=== PATIENT | female | born 1980 | race Caucasian/White ===

== ENCOUNTER → 2016-12-13 | Outpatient (CLI) | payer BC, OTHER ==
[2016-12-14 01:00] LABS: HSV I IgG Interp POSITIVE (NEGATIVE); HSV II IgG Interp NEGATIVE (NEGATIVE)
== END | disposition home or self-care (01) ==
LOC: MMGSC 11:53
PROVIDERS: ATTEND Family Medicine
DX: Z11.3 Encounter for screening for infections with a predominantly sexual mode of transmission (principal)
CPT/HCPCS: 36415; 86694; 86695; 86696

== ENCOUNTER → 2017-08-02 | Outpatient (CLI) | payer BC, OTHER ==
[2017-08-03 00:52] LABS: Estradiol 66.6 pg/mL
== END | disposition home or self-care (01) ==
LOC: LABWHC1 15:59
PROVIDERS: ATTEND Obstetrics & Gynecology Reproductive Endocrinology
DX: N97.8 Female infertility of other origin (principal)
CPT/HCPCS: 36415; 82670; 83001

== ENCOUNTER → 2018-07-16 | Outpatient (CLI) | payer BC ==
[2018-07-16 16:18] VITALS: BP 143/83; PULSE 58; RESP 16; TEMP 98.2; BMI 30.5
--- NOTE | 2018-07-16 16:22 | P.PN ---
Subjective Progress Note Date: 07/16/18 HPI: Has history of gastric bypass by Dr. Pinto in 32 years. She has history of stricture. She has lost 90 pounds. Highest weight 420 pound. Lowest weight 156 pounds. Now she is 192 pounds. She reports extreme weight loss from social stressors. No blood in stools. ABDOMEN: Left upper quadrant pain and epigastric abdominal. PLAN: 1. Upper endoscopy 2. Will need CT scan results 3. Get bariatric labs.
[2018-07-16 17:35] LABS: Anisocytosis Slight; HCT 29.5 % (34.0-46.0); HGB 8.7 gm/dL (11.4-16.0); Hypochromasia Marked; MCH 21.5 pg (25.0-35.0); MCHC 29.6 g/dL (31.0-37.0); MCV 72.9 fL (80.0-100.0); Mean Platelet Volume 7.4; Microcytosis Moderate; Platelet Count 226 k/uL (150-450); RBC 4.05 m/uL (3.80-5.40); RDW 16.3 % (11.5-15.5); WBC 5.6 k/uL (3.8-10.6)
[2018-07-16 17:45] LABS: INR 1.1 (<1.2); Partial Thromboplastin Time 23.7 sec (22.0-30.0); Prothrombin Time 10.8 sec (9.0-12.0)
[2018-07-16 18:19] LABS: ALT 25 U/L (9-52); AST 16 U/L (14-36); Alkaline Phosphatase 61 U/L (38-126); Anion Gap 9 mmol/L; Blood Urea Nitrogen 6 mg/dL (7-17); Carbon Dioxide 22 mmol/L (22-30); Chloride 108 mmol/L (98-107); Cholesterol 149 mg/dL (<200); Glucose 88 mg/dL (74-99); HDL Cholesterol 62 mg/dL (40-60); LDL Cholesterol,Calculated 75 mg/dL (0-99); Magnesium 1.8 mg/dL (1.6-2.3); Phosphorus 4.1 mg/dL (2.5-4.5); Potassium 4.1 mmol/L (3.5-5.1); Sodium 139 mmol/L (137-145); Total Bilirubin 0.2 mg/dL (0.2-1.3); Total Protein 6.8 g/dL (6.3-8.2); Triglycerides 58 mg/dL (<150)
[2018-07-17 01:05] LABS: Folate, Serum 19.4 ng/mL; Iron Saturation 4.01 (12.00-45.00)
[2018-07-17 01:06] LABS: Hemoglobin A1C 5.6 % (4.0-6.0)
[2018-07-17 01:15] LABS: Parathyroid Hormone Intact 74.4 pg/mL (14.0-72.0)
[2018-07-18 12:54] LABS: Zinc, Serum 63 ug/dL (60-130)
[2018-07-19 17:14] LABS: Selenium 104 mcg/L (63-160)
[2018-07-21 07:17] LABS: Vitamin B1 41 ug/L (38-122)
[2018-07-21 07:22] LABS: Vitamin A 26 ug/dL (38-106)
== END | disposition home or self-care (01) ==
LOC: BARWHC3 14:56
PROVIDERS: ATTEND Surgery Plastic and Reconstructive Surgery
DX: R10.13 Epigastric pain (principal); R10.11 Right upper quadrant pain; E66.01 Morbid (severe) obesity due to excess calories; E21.1 Secondary hyperparathyroidism, not elsewhere classified; E89.1 Postprocedural hypoinsulinemia; D50.9 Iron deficiency anemia, unspecified; E44.0 Moderate protein-calorie malnutrition; E55.9 Vitamin D deficiency, unspecified; K74.1 Hepatic sclerosis; N19 Unspecified kidney failure; K50.90 Crohn's disease, unspecified, without complications; Z87.19 Personal history of other diseases of the digestive system; Z98.84 Bariatric surgery status; Z68.30 Body mass index [BMI] 30.0-30.9, adult
CPT/HCPCS: 36415; 80053; 80061; 82306; 82525; 82607; 82728; 82746; 83036; 83540; 83550; 83735; 83970; 84100; 84134; 84255; 84425; 84443; 84590; 84630; 85027; 85610; 85730; 99201

== ENCOUNTER 2018-07-18 11:39 | Day surgery (SDC) | payer BC ==
[2018-07-17 13:33] VITALS: BMI 29.0
--- NOTE | 2018-07-18 00:45 | P.GSHP ---
History of Present Illness H&P Date: 07/18/18 CHIEF COMPLAINT: GERD HISTORY OF PRESENT ILLNESS: The patient is a 38-year-old female who presents reports gastroesophageal reflux disease. Upper endoscopy was offered for further evaluation and management. PAST MEDICAL HISTORY: Please see list. PAST SURGICAL HISTORY: Please see list. MEDICATIONS: Please see list. ALLERGIES: Please see list. SOCIAL HISTORY: No illicit drug use FAMILY HISTORY: No reports of Crohn disease or ulcerative colitis. REVIEW OF ORGAN SYSTEMS: CONSTITUTIONAL: No reports of fevers or chills. GI: Denies any blood in stools or constipation. PHYSICAL EXAM: VITAL SIGNS: Stable GENERAL: Well-developed and pleasant in no acute distress. HEENT: No scleral icterus. Extraocular movements grossly intact. Moist buccal mucosa. NECK: Supple without lymphadenopathy. CHEST: Unlabored respirations. Equal bilateral excursions. CARDIOVASCULAR: Regular rate and rhythm. Distal 2+ pulses. ABDOMEN: Soft, nondistended. MUSCULOSKELETAL: No clubbing, cyanosis, or edema. ASSESSMENT: 1. Gastroesophageal reflux disease PLAN: 1. Recommend proceeding with an upper endoscopy Past Medical History Additional Past Medical History / Comment(s): ABD PAIN, VOMITING, hx of kidney stones, History of Any Multi-Drug Resistant Organisms: None Reported Past Surgical History: Bariatric Surgery, Section, Cholecystectomy, Tubal Ligation Additional Past Surgical History / Comment(s): lap band 2010 lap band removed and gastric bypass 2014 c section x 2 reversal of tubal ligation 2017 Past Anesthesia/Blood Transfusion Reactions: No Reported Reaction Smoking Status: Never smoker Medications and Allergies Home Medications Medication Instructions Recorded Confirmed Type Calcium Citrate 500 mg PO QID 07/16/18 07/17/18 History Cholecalciferol [Vitamin D3] 1,000 unit PO DAILY 07/16/18 07/17/18 History Cyanocobalamin (Vitamin B-12) 1,000 mcg PO DAILY 07/16/18 07/17/18 History [Vitamin B-12] Iron 120 mg PO DAILY 07/16/18 07/17/18 History Potassium 99 mg PO WEEKLY 07/16/18 07/17/18 History Vit 84/Iron/FA 1/Dha 1 tab PO DAILY 07/16/18 07/17/18 History [Prenate Essential Softgel] Vitamin B Complex 1 tab PO DAILY 07/16/18 07/17/18 History Allergies Allergy/AdvReac Type Severity Reaction Status Date / Time adhesive tape Allergy Rash/Hives Verified 07/17/18 13:25
[2018-07-18 12:07] VITALS: RESP 16; TEMP 99.2
[2018-07-18] MEDS ORDERED: LACTATED RINGERS 1,000 ML IV ONE (12:11)
[2018-07-18] MEDS ORDERED: LIDOCAINE 1% 20 ML VIAL (10MG/ML) FOR IV START INTRADERMA ONE (12:12)
[2018-07-18] MEDS ORDERED: LIDOCAINE 1% INJ 10MG/ML (20 ML MDV) ONE (12:46)
[2018-07-18] MEDS ORDERED: PROPOFOL 10 MG/ML 20 ML VIAL IV ONE (12:46)
--- NOTE | 2018-07-18 12:55 | P.PCN ---
Date of Procedure: 07/18/18 Description of Procedure: PREOPERATIVE DIAGNOSIS: Dysphagia. s/p Damaris-en-y gastric bypass. Epigastric abdominal pain Nausea with vomiting. History of gastrojejunal strictures POSTOPERATIVE DIAGNOSIS: Dysphagia. s/p Damaris-en-y gastric bypass. 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 INDICATIONS: The patient is a 38-year-old female who presents with a history of dysphagia, gastric bypass including new-onset nausea and vomiting. Benefits and risks of the procedure were described. Informed consent was obtained. DESCRIPTION: The patient was brought into the endoscopy suite and laid in the left lateral decubitus position. After a timeout was confirmed, the procedure was initiated. An Olympus gastroscope was passed along the posterior oropharynx down to the distal esophagus where the squamocolumnar junction was unremarkable. The gastric pouch was entered. A gastrojejunal stricture of 12 mm was found as the adult gastroscope was 9.5 mm in size. Large chronic gastrojejunal marginal ulcer was encountered. As a result of the ulcer, dilation was avoided. No full-thickness injury was encountered. The GI tract was desufflated. The patient tolerated the procedure well. FINDINGS: Squamocolumnar junction unremarkable at 37 cm. Stricture of approximately 12 mm encountered. Large chronic gastrojejunal ulceration encountered. RECOMMENDATIONS: Start combined therapy of Carafate and omeprazole of at least 4 weeks. Plan - Discharge Summary New Discharge Prescriptions: No Action Vit 84/Iron/FA 1/Dha [Prenate Essential Softgel] 1 tab PO DAILY Vitamin B Complex 1 tab PO DAILY Calcium Citrate 500 mg PO QID Potassium 99 mg PO WEEKLY Iron 120 mg PO DAILY Cholecalciferol [Vitamin D3] 1,000 unit PO DAILY Cyanocobalamin (Vitamin B-12) [Vitamin B-12] 1,000 mcg PO DAILY Discharge Medication List Calcium Citrate 500 mg PO QID 07/16/18 [History] Cholecalciferol [Vitamin D3] 1,000 unit PO DAILY 07/16/18 [History] Cyanocobalamin (Vitamin B-12) [Vitamin B-12] 1,000 mcg PO DAILY 07/16/18 [ History] Iron 120 mg PO DAILY 07/16/18 [History] Potassium 99 mg PO WEEKLY 07/16/18 [History] Vit 84/Iron/FA 1/Dha [Prenate Essential Softgel] 1 tab PO DAILY [History] Vitamin B Complex 1 tab PO DAILY 07/16/18 [History]
[2018-07-18 13:23] VITALS: BP 143/84; PULSE 78
== END 2018-07-18 13:35 | disposition home or self-care (01) ==
LOC: ORWHC2ENDO 11:39
PROVIDERS: ATTEND Surgery Plastic and Reconstructive Surgery
DX: K28.7 Chronic gastrojejunal ulcer without hemorrhage or perforation (principal); K56.699 Other intestinal obstruction unspecified as to partial versus complete obstruction; K21.9 Gastro-esophageal reflux disease without esophagitis; Z98.84 Bariatric surgery status; Z91.048 Other nonmedicinal substance allergy status
CPT/HCPCS: 81025; 43235; J2001; J2704

== ENCOUNTER → 2018-08-06 | Outpatient (CLI) | payer BC ==
[2018-08-06 15:08] VITALS: BP 127/86; PULSE 67; TEMP 98.2; BMI 30.4
--- NOTE | 2018-08-06 15:43 | P.PN ---
Subjective Progress Note Date: 08/06/18 HPI: She is doing well. She has better energy after iron infusions. Her abdominal pain is improved. ABDOMEN: Unremarkable PLAN: 1. Repeat EGD the week of August after 2. Alive ultra-potency advised. 3. Continue Carafate and Omeprazole for 4 to 6 weeks. Objective - Vital Signs Vital signs: Vital Signs Temp 98.2 F 08/06/18 15:03 Pulse 67 08/06/18 15:03 Resp BP 127/86 08/06/18 15:03 Pulse Ox Intake & Output 08/05/18 08/06/18 08/06/18 18:59 06:59 18:59 Weight 86.772 kg
== END | disposition home or self-care (01) ==
LOC: BARWHC3 14:00
PROVIDERS: ATTEND Surgery Plastic and Reconstructive Surgery
DX: R10.9 Unspecified abdominal pain (principal); Z79.899 Other long term (current) drug therapy
CPT/HCPCS: 99211

== ENCOUNTER → 2018-08-27 | Outpatient (CLI) | payer BC ==
[2018-08-27 17:16] LABS: Cardiolipin Ab IgG Interp NEGATIVE (NEGATIVE); Cardiolipin Ab IgM Interp NEGATIVE (NEGATIVE); Cardiolipin IgA Antibody <0.5 U/mL; Cardiolipin IgM Antibody <0.2 U/mL
[2018-08-27 18:04] LABS: Insulin Level 10.5 mIU/mL (3.0-25.0)
[2018-08-27 18:22] LABS: Thyroid Peroxidase Antibodies 3755.9 U/mL (0.0-60.0)
[2018-08-27 19:21] LABS: Hemoglobin A1C 4.6 % (4.0-6.0)
[2018-08-29 12:09] LABS: Anti-Thrombin III Activity 102 % (79-109)
[2018-08-29 12:46] LABS: Protein C (Activity) 75 % (71-138)
== END ==
LOC: LABWHC1 08:24
PROVIDERS: ATTEND Obstetrics & Gynecology
DX: N96 Recurrent pregnancy loss (principal)
CPT/HCPCS: 36415; 81240; 81241; 81291; 82947; 83036; 83090; 83525; 84146; 84443; 85300; 85303; 85306; 86038; 86147; 86376; 86800

== ENCOUNTER → 2018-09-17 | Outpatient (CLI) | payer BC | END | disposition home or self-care (01) | LOC: LABWHC1 12:16 | DX: N92.6 Irregular menstruation, unspecified (principal) | CPT/HCPCS: 36415; 84144 ==

== ENCOUNTER → 2018-10-28 | Outpatient (CLI) | payer BC | LOC: LABWHC1 16:11 | PROVIDERS: ATTEND Obstetrics & Gynecology | DX: N96 Recurrent pregnancy loss (principal); N91.2 Amenorrhea, unspecified | CPT/HCPCS: 36415; 84443; 84702 ==

== ENCOUNTER → 2018-11-03 | Outpatient (CLI) | payer BC | LOC: LABWHC1 17:19 | PROVIDERS: ATTEND Obstetrics & Gynecology | DX: N91.2 Amenorrhea, unspecified (principal) | CPT/HCPCS: 36415; 84702 ==

== ENCOUNTER → 2018-11-11 | Outpatient (CLI) | payer BC | LOC: LABWHC1 11:13 | PROVIDERS: ATTEND Obstetrics & Gynecology | DX: N96 Recurrent pregnancy loss (principal) | CPT/HCPCS: 36415; 84702 ==

== ENCOUNTER → 2018-11-13 | Outpatient (CLI) | payer BC | LOC: LABWHC1 11:56 | PROVIDERS: ATTEND Obstetrics & Gynecology | DX: N91.2 Amenorrhea, unspecified (principal) | CPT/HCPCS: 36415; 84702 ==

== ENCOUNTER → 2019-01-08 | Outpatient (CLI) | payer BC, OTHER | END | disposition home or self-care (01) | LOC: LABWHC1 14:26 | PROVIDERS: ATTEND Obstetrics & Gynecology | DX: N91.2 Amenorrhea, unspecified (principal) | CPT/HCPCS: 36415; 84702 ==

== ENCOUNTER → 2019-01-22 | Outpatient (CLI) | payer BC, OTHER ==
--- NOTE | 2019-01-22 11:44 | CT ---
EXAMINATION TYPE: CT abdomen pelvis wo/w con DATE OF EXAM: 01/22/2019 COMPARISON: Unavailable HISTORY: Renal cyst on US CT DLP: 1000.2 mGycm Automated exposure control for dose reduction was used. TECHNIQUE: Helical acquisition of images was performed from the lung bases through the pelvis. CONTRAST: Performed with Oral Contrast and without and with IV Contrast, patient injected with 100 mL of Isovue 300. FINDINGS: Postop changes are noted to the stomach. LUNG BASES: No significant abnormality is appreciated. LIVER/GB: Patient is post cholecystectomy, liver is within normal limits. PANCREAS: No significant abnormality is seen. SPLEEN: No significant abnormality is seen. ADRENALS: No significant abnormality is seen. KIDNEYS: No significant abnormality is seen. FREE AIR: No free air is visualized. RETROPERITONEAL ADENOPATHY: None visualize OSSEOUS STRUCTURES: No significant abnormality is seen. BOWEL: No significant abnormality is seen. IMPRESSION: NO RENAL CYST EVIDENT. IF PATIENT'S PRIOR EXAM BECOMES AVAILABLE FOR CORRELATION AN ADDENDUM REPORT C AN BE ISSUED
== END | disposition home or self-care (01) ==
LOC: RADCTMAIN 06:57
PROVIDERS: ATTEND Family Medicine
DX: N28.1 Cyst of kidney, acquired (principal)
CPT/HCPCS: 74178; Q9967

== ENCOUNTER → 2019-02-13 | Outpatient (CLI) | payer BC, OTHER | END | disposition home or self-care (01) | LOC: LABWHC1 10:16 | PROVIDERS: ATTEND Obstetrics & Gynecology | DX: N96 Recurrent pregnancy loss (principal) | CPT/HCPCS: 36415; 82652; 83090; 84443 ==

== ENCOUNTER 2019-03-17 12:42 | Emergency (ER) | payer BC, OTHER ==
[2019-03-17] MEDS ORDERED: SODIUM CHLORIDE 0.9% 1,000 ML IV STA (13:31)
[2019-03-17] MEDS ORDERED: ONDANSETRON 4 MG/2 ML VIAL IVP STA (13:31)
[2019-03-17] MEDS ORDERED: SODIUM CHLORIDE 0.9% 2,000 ML IV STA (13:31)
[2019-03-17 14:00] LABS: Basophils % (A) 0 %; Eosinophils # (A) 0.1 k/uL (0-0.7); Eosinophils % (A) 3 %; HCT 34.7 % (34.0-46.0); HGB 11.7 gm/dL (11.4-16.0); Lymphocytes % (A) 22 %; MCH 29.9 pg (25.0-35.0); MCHC 33.8 g/dL (31.0-37.0); MCV 88.5 fL (80.0-100.0); Mean Platelet Volume 7.3; Monocytes # (A) 0.3 k/uL (0-1.0); Monocytes % (A) 7 %; Neutrophils # (A) 2.9 k/uL (1.3-7.7); Neutrophils % (A) 66 %; Platelet Count 260 k/uL (150-450); RBC 3.92 m/uL (3.80-5.40); RDW 12.8 % (11.5-15.5); WBC 4.4 k/uL (3.8-10.6)
[2019-03-17 14:06] LABS: ALT 20 U/L (9-52); AST 12 U/L (14-36); Albumin 3.7 g/dL (3.5-5.0); Alkaline Phosphatase 46 U/L (38-126); Amylase 39 U/L (30-110); Anion Gap 6 mmol/L; Blood Urea Nitrogen 9 mg/dL (7-17); Calcium 8.9 mg/dL (8.4-10.2); Carbon Dioxide 22 mmol/L (22-30); Chloride 108 mmol/L (98-107); Glucose 70 mg/dL (74-99); Lipase 74 U/L (23-300); Sodium 136 mmol/L (137-145); Total Bilirubin 0.3 mg/dL (0.2-1.3); Total Protein 6.3 g/dL (6.3-8.2)
--- NOTE | 2019-03-17 14:15 | ED ---
Nausea/Vomiting/Diarrhea HPI - General Chief complaint: Nausea/Vomiting/Diarrhea Stated complaint: hyperemesis, 9 weeks Time Seen by Provider: 03/17/19 13:18 Source: patient, RN notes reviewed, old records reviewed Mode of arrival: ambulatory Limitations: no limitations - History of Present Illness Initial comments: Patient is a 38-year-old female presents emergency department today complaints of nausea and vomiting. She relates hyperemesis gravidarum. Patient is a G 12 P2 Patient. Patient states that she was slamming . 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 Patient reports she's been having 20 days of persistent vomiting since this recent . she rudy bleeding or discharge. - Related Data Home Medications Medication Instructions Recorded Confirmed Mthfr 1 tab PO HS 03/17/19 03/17/19 Multivitamins, Thera [Multivitamin 1 tab PO HS 03/17/19 03/17/19 (formulary)] Omeprazole [PriLOSEC] 20 mg PO AC-BRKFST PRN 03/17/19 03/17/19 Ondansetron HCl [Zofran] 8 mg PO Q8H PRN 03/17/19 03/17/19 Pnv,Calcium 72/Iron/Folic Acid 1 tab PO HS 03/17/19 03/17/19 [ Plus Tablet] Previous Rx's Medication Instructions Recorded Cefdinir 300 mg PO Q12HR #6 cap 03/17/19 Allergies Allergy/AdvReac Type Severity Reaction Status Date / Time adhesive tape Allergy Rash/Hives Verified 03/17/19 13:23 Review of Systems ROS Statement: Those systems with pertinent positive or pertinent negative responses have been documented in the HPI. ROS Other: All systems not noted in ROS Statement are negative. Past Medical History Additional Past Medical History / Comment(s): ABD PAIN, VOMITING, hx of kidney stones, History of Any Multi-Drug Resistant Organisms: None Reported Past Surgical History: Bariatric Surgery, Section, Cholecystectomy, Tubal Ligation Additional Past Surgical History / Comment(s): lap band 2010 lap band removed and gastric bypass 2014, c section x 2 reversal of tubal ligation 2017 Past Anesthesia/Blood Transfusion Reactions: No Reported Reaction Past Psychological History: No Psychological Hx Reported Smoking Status: Never smoker Past Alcohol Use History: None Reported Past Drug Use History: None Reported General Exam - General Exam Comments Initial Comments: pleasant 38 year old female, no distress. Limitations: no limitations General appearance: alert, in no apparent distress Head exam: Present: atraumatic, normocephalic, normal inspection Eye exam: Present: normal appearance ENT exam: Present: normal exam, mucous membranes moist Neck exam: Present: normal inspection. Absent: tenderness, meningismus, lymphadenopathy Respiratory exam: Present: normal lung sounds bilaterally. Absent: respiratory distress, wheezes, rales, rhonchi, stridor Cardiovascular Exam: Present: regular rate, normal rhythm, normal heart sounds. Absent: systolic murmur, diastolic murmur, rubs, gallop, clicks GI/Abdominal exam: Present: soft, normal bowel sounds. Absent: distended, tenderness, guarding, rebound, rigid Extremities exam: Present: normal inspection, full ROM, normal capillary refill. Absent: tenderness, pedal edema, joint swelling, calf tenderness Back exam: Present: normal inspection Course Vital Signs 03/17/19 03/17/19 13:05 16:26 Temperature 98 F 98.5 F Pulse Rate 82 67 Respiratory 16 18 Rate Blood Pressure 124/82 134/79 O2 Sat by Pulse 99 99 Oximetry Medical Decision Making - Medical Decision Making 38 year old female, G12,P2, and 9 weeks presents with hyperemesis gravidum. She given IV fluids and zofran. She already takes zofran at home. She has normal labs, UA shows slight UTI. She requests cefdinir rather than keflex. Discussed she follow up with OB. She has no bleeding ab fetus shows normal herat tones and is viable IUP. - Lab Data Result diagrams: 03/17/19 13:42 03/17/19 13:42 Lab Results 03/17/19 03/17/19 03/17/19 Range/Units 13:42 13:42 13:57 WBC 4.4 (3.8-10.6) k/uL RBC 3.92 (3.80-5.40) m/uL Hgb 11.7 (11.4-16.0) gm/dL Hct 34.7 (34.0-46.0) % MCV 88.5 (80.0-100.0) fL MCH 29.9 (25.0-35.0) pg MCHC 33.8 (31.0-37.0) g/dL RDW 12.8 (11.5-15.5) % Plt Count 260 (150-450) k/uL Neutrophils % 66 % Lymphocytes % 22 % Monocytes % 7 % Eosinophils % 3 % Basophils % 0 % Neutrophils # 2.9 (1.3-7.7) k/uL Lymphocytes # 1.0 (1.0-4.8) k/uL Monocytes # 0.3 (0-1.0) k/uL Eosinophils # 0.1 (0-0.7) k/uL Basophils # 0.0 (0-0.2) k/uL Sodium 136 L (137-145) mmol/L Potassium 4.0 (3.5-5.1) mmol/L Chloride 108 H (98-107) mmol/L Carbon Dioxide 22 (22-30) mmol/L Anion Gap 6 mmol/L BUN 9 (7-17) mg/dL Creatinine 0.59 (0.52-1.04) mg/dL Est GFR (CKD-EPI)AfAm >90 (>60 ml/min/1.73 sqM) Est GFR (CKD-EPI)NonAf >90 (>60 ml/min/1.73 sqM) Glucose 70 L (74-99) mg/dL Calcium 8.9 (8.4-10.2) mg/dL Total Bilirubin 0.3 (0.2-1.3) mg/dL AST 12 L (14-36) U/L ALT 20 (9-52) U/L Alkaline Phosphatase 46 (38-126) U/L Total Protein 6.3 (6.3-8.2) g/dL Albumin 3.7 (3.5-5.0) g/dL Amylase 39 (30-110) U/L Lipase 74 (23-300) U/L Urine Color Yellow Urine Appearance Cloudy H (Clear) Urine pH 6.0 (5.0-8.0) Ur Specific [place] 1.028 (1.001-1.035) Urine Protein Trace H (Negative) Urine Glucose (UA) Negative (Negative) Urine Ketones Negative (Negative) Urine Blood Trace H (Negative) Urine Nitrite Positive H (Negative) Urine Bilirubin Negative (Negative) Urine Urobilinogen <2.0 (<2.0) mg/dL Ur Leukocyte Esterase Negative (Negative) Urine WBC 3 (0-5) /hpf Urine Bacteria Many H (None) /hpf Urine Opiates Screen (NotDetected) Ur Oxycodone Screen (NotDetected) Urine Methadone Screen (NotDetected) Ur Propoxyphene Screen (NotDetected) Ur Barbiturates Screen (NotDetected) U Tricyclic Antidepress (NotDetected) Ur Phencyclidine Scrn (NotDetected) Ur Amphetamines Screen (NotDetected) U Methamphetamines Scrn (NotDetected) U Benzodiazepines Scrn (NotDetected) Urine Cocaine Screen (NotDetected) U Marijuana (THC) Screen (NotDetected) 03/17/19 Range/Units 16:20 WBC (3.8-10.6) k/uL RBC (3.80-5.40) m/uL Hgb (11.4-16.0) gm/dL Hct (34.0-46.0) % MCV (80.0-100.0) fL MCH (25.0-35.0) pg MCHC (31.0-37.0) g/dL RDW (11.5-15.5) % Plt Count (150-450) k/uL Neutrophils % % Lymphocytes % % Monocytes % % Eosinophils % % Basophils % % Neutrophils # (1.3-7.7) k/uL Lymphocytes # (1.0-4.8) k/uL Monocytes # (0-1.0) k/uL Eosinophils # (0-0.7) k/uL Basophils # (0-0.2) k/uL Sodium (137-145) mmol/L Potassium (3.5-5.1) mmol/L Chloride (98-107) mmol/L Carbon Dioxide (22-30) mmol/L Anion Gap mmol/L BUN (7-17) mg/dL Creatinine (0.52-1.04) mg/dL Est GFR (CKD-EPI)AfAm (>60 ml/min/1.73 sqM) Est GFR (CKD-EPI)NonAf (>60 ml/min/1.73 sqM) Glucose (74-99) mg/dL Calcium (8.4-10.2) mg/dL Total Bilirubin (0.2-1.3) mg/dL AST (14-36) U/L ALT (9-52) U/L Alkaline Phosphatase (38-126) U/L Total Protein (6.3-8.2) g/dL Albumin (3.5-5.0) g/dL Amylase (30-110) U/L Lipase (23-300) U/L Urine Color Urine Appearance (Clear) Urine pH (5.0-8.0) Ur Specific [place] (1.001-1.035) Urine Protein (Negative) Urine Glucose (UA) (Negative) Urine Ketones (Negative) Urine Blood (Negative) Urine Nitrite (Negative) Urine Bilirubin (Negative) Urine Urobilinogen (<2.0) mg/dL Ur Leukocyte Esterase (Negative) Urine WBC (0-5) /hpf Urine Bacteria (None) /hpf Urine Opiates Screen Not Detected (NotDetected) Ur Oxycodone Screen Not Detected (NotDetected) Urine Methadone Screen Not Detected (NotDetected) Ur Propoxyphene Screen Not Detected (NotDetected) Ur Barbiturates Screen Not Detected (NotDetected) U Tricyclic Antidepress Not Detected (NotDetected) Ur Phencyclidine Scrn Not Detected (NotDetected) Ur Amphetamines Screen Not Detected (NotDetected) U Methamphetamines Scrn Not Detected (NotDetected) U Benzodiazepines Scrn Not Detected (NotDetected) Urine Cocaine Screen Not Detected (NotDetected) U Marijuana (THC) Screen Not Detected (NotDetected) - Radiology Data Radiology results: report reviewed US shows viable IUP meaduring 8 weeks. Disposition Clinical Impression: Nausea/vomiting in , UTI in Disposition: HOME SELF-CARE Condition: Good Instructions (If sedation given, give patient instructions): Acute Nausea and Vomiting (ED) Additional Instructions: Follow-up with your NUTRITION TECH and primary care physician. Return to the emergency department if any alarming signs or symptoms occur. Prescriptions: Cefdinir 300 mg PO Q12HR #6 cap Is patient prescribed a controlled substance at d/c from ED?: No Referrals: Salo Ferro DO [Primary Care Provider] - 1-2 days Time of Disposition: 16:16
--- NOTE | 2019-03-17 14:56 | US ---
EXAMINATION TYPE: Transabdominal DATE OF EXAM: 03/17/2019 2:37 PM COMPARISON: NONE CLINICAL HISTORY: Pain. Hyperemesis, 12, para 2, ectopic 2, miscarriage 7 EXAM PERFORMED: Transabdominal (TA) EXAM MEASUREMENTS: GESTATIONAL AGE / DATING Physician Established: (9 weeks/0 days) EDC: 10/20/2019 Dates by LMP: Patient unsure Dates by First Scan: This is 1st scan Dates by Current Scan for: (8 weeks/2 days) EDC: 10/25/2019 MATERNAL ANATOMY Uterus: 10.3 x 5.0 x 8.5cm, anteverted Right Ovary: 3.4 x 2.6 x 4.2cm Left Ovary: 3.4 x 2.4 x 2.5cm Post CDS / Adnexa: wnl Presence of free fluid: no Presence of corpus luteal cyst: right ovary: 1.8 x 1.8 x 1.9cm Presence of subchorionic bleed: no GESTATION / SURVEY CRL: 1.8cm (8 weeks/2 days) Yolk Sac (normal less than 6mm): not seen Heart Rate: 182 bpm Rhythm: Normal IUP: Viable IUP Date of LMP: Patient unsure Beta HcG (if available): Not available at time of exam Viable single IUP measuring 8 weeks 2 days with a heart rate of 182bpm and an estimated delivery date of 10/25/2019. IMPRESSION: Single viable intrauterine corresponding to ultrasound age of 8 weeks 2 days with estimated date of delivery 10/25/2019
[2019-03-17 15:30] LABS: Appearance,Urine Cloudy (Clear); Bacteria,Urine Many /hpf; Bilirubin,Urine Negative (Negative); Blood,Urine Trace (Negative); Color,Urine Yellow; Glucose,Urine (UA) Negative (Negative); Ketones,Urine Negative (Negative); Leukocyte Esterase,Urine Negative (Negative); Nitrite,Urine Positive (Negative); Protein,Urine Trace (Negative); Specific Gravity,Urine 1.028 (1.001-1.035); Urobilinogen,Urine <2.0 mg/dL (<2.0); WBC,Urine 3 /hpf (0-5)
[2019-03-17 16:28] VITALS: BP 134/79; PULSE 67; RESP 18; TEMP 98.5
[2019-03-17 16:36] LABS: Amphetamine Screen,Urine Not Detected (NotDetected); Barbiturate Screen,Urine Not Detected (NotDetected); Benzodiazepines Screen,Urine Not Detected (NotDetected); Cocaine Screen,Urine Not Detected (NotDetected); Methadone Screen, Urine Not Detected (NotDetected); Opiate Screen,Urine Not Detected (NotDetected); Oxycodone Screen, Urine Not Detected (NotDetected); Phencyclidine Screen,Urine Not Detected (NotDetected); Tricyclic Antidepressant,Urine Not Detected (NotDetected); Urn Cannabinoid Scrn Not Detected (NotDetected)
== END 2019-03-17 16:26 | disposition home or self-care (01) ==
LOC: EC 12:42
DX: O21.9 Vomiting of pregnancy, unspecified (principal); O23.41 Unspecified infection of urinary tract in pregnancy, first trimester; Z3A.08 8 weeks gestation of pregnancy; Z91.048 Other nonmedicinal substance allergy status; Z90.49 Acquired absence of other specified parts of digestive tract; Z98.84 Bariatric surgery status
CPT/HCPCS: 99284; 96374; 96361 ×3; 36415; 80053; 82150; 83690; 85025; 81001; 80306; 76801; J2405

== ENCOUNTER 2019-03-24 19:08 | Emergency (ER) | payer BC, OTHER ==
[2019-03-24] MEDS ORDERED: METOCLOPRAMIDE 5 MG/ML 2 ML VIAL IVP STA (20:03)
[2019-03-24] MEDS ORDERED: diphenhydrAMINE 50 MG/ML 1 ML VIAL IVP STA (20:03)
[2019-03-24] MEDS ORDERED: SODIUM CHLORIDE 0.9% 1,000 ML IV STA (20:03)
[2019-03-24] MEDS ORDERED: DEXTROSE 5% IN WATER 1,000 ML IV STA (20:04)
--- NOTE | 2019-03-24 20:26 | ED ---
General Adult HPI - General Chief complaint: Nausea/Vomiting/Diarrhea Stated complaint: vomiting/dizziness-revisit Time Seen by Provider: 03/24/19 19:47 Source: patient, family Mode of arrival: ambulatory Limitations: no limitations - History of Present Illness Initial comments: 38-year-old female patient presents to the emergency department today for ev aluation of vomiting. Patient is currently 10 weeks and does have hyperemesis gravidarum. The patient is A9. Patient states she does have Zofran and Reglan at home which is not helping however she is unable to keep the pills down. Patient states that she has had some blood streaking in her vomit. Patient states she is unable to keep anything down for the last 2-3 days. Patient is denies having any significant abdominal pain. She denies any abnormal vaginal bleeding or discharge. Denies any hematuria, dysuria, urinary frequency, urinary urgency. Denies fever, chills, or diarrhea. Patient denies any recent rash, shortness breath, chest pain, back pain, numbness, tingling, dizziness, weakness, headache, visual changes, or any other complaints. - Related Data Home Medications Medication Instructions Recorded Confirmed Mthfr 1 tab PO HS 03/17/19 03/24/19 Ondansetron HCl [Zofran] 8 mg PO Q8H PRN 03/17/19 03/24/19 Pnv,Calcium 72/Iron/Folic Acid 1 tab PO HS 03/17/19 03/24/19 [ Plus Tablet] Levothyroxine Sodium [Synthroid] 50 mcg PO DAILY 03/24/19 03/24/19 Metoclopramide [Reglan] 10 mg PO Q8H PRN 03/24/19 03/24/19 Allergies Allergy/AdvReac Type Severity Reaction Status Date / Time adhesive tape Allergy Rash/Hives Verified 03/24/19 20:31 Review of Systems ROS Statement: Those systems with pertinent positive or pertinent negative responses have been documented in the HPI. ROS Other: All systems not noted in ROS Statement are negative. Past Medical History Additional Past Medical History / Comment(s): ABD PAIN, VOMITING, hx of kidney stones, History of Any Multi-Drug Resistant Organisms: None Reported Past Surgical History: Bariatric Surgery, Section, Cholecystectomy, Tubal Ligation Additional Past Surgical History / Comment(s): lap band 2009 lap band removed and gastric bypass 2014, c section x 2 reversal of tubal ligation 2017 Past Anesthesia/Blood Transfusion Reactions: No Reported Reaction Past Psychological History: No Psychological Hx Reported Smoking Status: Never smoker Past Alcohol Use History: None Reported Past Drug Use History: None Reported General Exam Limitations: no limitations General appearance: alert, in no apparent distress, other (Social well-develope d, well-nourished adult female patient in no acute distress. Vital signs upon presentation are temperature 98.3F, pulse 75, respirations 18, blood pressure 124/83, pulse ox 100% on room air.) Eye exam: Present: normal appearance, PERRL, EOMI. Absent: scleral icterus, conjunctival injection, periorbital swelling ENT exam: Present: normal exam, normal oropharynx, mucous membranes moist, TM's normal bilaterally Respiratory exam: Present: normal lung sounds bilaterally. Absent: respiratory distress, wheezes, rales, rhonchi, stridor Cardiovascular Exam: Present: regular rate, normal rhythm, normal heart sounds. Absent: systolic murmur, diastolic murmur, rubs, gallop, clicks GI/Abdominal exam: Present: soft, normal bowel sounds. Absent: distended, tenderness, guarding, rebound, rigid Neurological exam: Present: alert, oriented X3, CN II-XII intact Psychiatric exam: Present: normal affect, normal mood Skin exam: Present: warm, dry, intact, normal color. Absent: rash Course Vital Signs 03/24/19 03/24/19 03/24/19 19:27 20:30 22:18 Temperature 98.3 F 98 F Pulse Rate 75 67 75 Respiratory 18 16 16 Rate Blood Pressure 124/83 118/65 132/79 O2 Sat by Pulse 100 100 99 Oximetry Medical Decision Making - Medical Decision Making 38-year-old female patient presents to the emergency department today for evaluation of vomiting. She is 10 weeks . She does have hyperemesis. States that she has been unable to keep down any food or fluids for the last 2-3 days. Physical examination is unremarkable. Abdomen is soft and nontender. She denies abnormal vaginal bleeding or discharge. Denies any significant abdominal pain. Lab reviewed and were unremarkable. Urinalysis unremarkable. She is given IV fluids and nausea medication here in the emergency department. Upon reevaluation shows report improvement of symptoms. She is tolerating oral intake. She'll be discharged with time to follow-up with her TIRE MANAGER for recheck this is possibly shows an appointment in the morning. Return parameters were discussed in detail. She verbalizes understanding and agrees with this plan. - Lab Data Result diagrams: 03/24/19 20:15 03/24/19 20:15 Lab Results 03/24/19 03/24/19 03/24/19 Range/Units 20:15 20:15 20:15 WBC 6.3 (3.8-10.6) k/uL RBC 3.83 (3.80-5.40) m/uL Hgb 11.4 (11.4-16.0) gm/dL Hct 34.5 (34.0-46.0) % MCV 90.1 (80.0-100.0) fL MCH 29.8 (25.0-35.0) pg MCHC 33.0 (31.0-37.0) g/dL RDW 12.6 (11.5-15.5) % Plt Count 245 (150-450) k/uL Neutrophils % 69 % Lymphocytes % 20 % Monocytes % 6 % Eosinophils % 2 % Basophils % 0 % Neutrophils # 4.3 (1.3-7.7) k/uL Lymphocytes # 1.3 (1.0-4.8) k/uL Monocytes # 0.4 (0-1.0) k/uL Eosinophils # 0.1 (0-0.7) k/uL Basophils # 0.0 (0-0.2) k/uL Sodium 138 (137-145) mmol/L Potassium 3.7 (3.5-5.1) mmol/L Chloride 105 (98-107) mmol/L Carbon Dioxide 24 (22-30) mmol/L Anion Gap 9 mmol/L BUN 10 (7-17) mg/dL Creatinine 0.56 (0.52-1.04) mg/dL Est GFR (CKD-EPI)AfAm >90 (>60 ml/min/1.73 sqM) Est GFR (CKD-EPI)NonAf >90 (>60 ml/min/1.73 sqM) Glucose 58 L (74-99) mg/dL Calcium 9.0 (8.4-10.2) mg/dL Total Bilirubin 0.2 (0.2-1.3) mg/dL AST 12 L (14-36) U/L ALT 20 (9-52) U/L Alkaline Phosphatase 54 (38-126) U/L Total Protein 6.7 (6.3-8.2) g/dL Albumin 3.9 (3.5-5.0) g/dL Amylase 34 (30-110) U/L Lipase 86 (23-300) U/L Urine Color Yellow Urine Appearance Cloudy H (Clear) Urine pH 5.5 (5.0-8.0) Ur Specific [place] 1.018 (1.001-1.035) Urine Protein Negative (Negative) Urine Glucose (UA) Negative (Negative) Urine Ketones Negative (Negative) Urine Blood Trace H (Negative) Urine Nitrite Negative (Negative) Urine Bilirubin Negative (Negative) Urine Urobilinogen <2.0 (<2.0) mg/dL Ur Leukocyte Esterase Negative (Negative) Urine RBC 1 (0-5) /hpf Urine WBC 2 (0-5) /hpf Ur Squamous Epith Cells 12 H (0-4) /hpf Urine Bacteria Rare H (None) /hpf Disposition Clinical Impression: Hyperemesis gravidarum Disposition: HOME SELF-CARE Condition: Good Instructions (If sedation given, give patient instructions): Hyperemesis Gravidarum (ED) Additional Instructions: Start with clear liquid diet and advance as tolerated. Follow up with your TIRE MANAGER for recheck as possible. Return to the emergency department immediately for any new, worsening, or concerning symptoms. Is patient prescribed a controlled substance at d/c from ED?: No Referrals: aSlo Ferro DO [Primary Care Provider] - 1-2 days Time of Disposition: 22:21
[2019-03-24 20:40] LABS: Basophils % (A) 0 %; Eosinophils # (A) 0.1 k/uL (0-0.7); Eosinophils % (A) 2 %; HCT 34.5 % (34.0-46.0); HGB 11.4 gm/dL (11.4-16.0); Lymphocytes # (A) 1.3 k/uL (1.0-4.8); Lymphocytes % (A) 20 %; MCH 29.8 pg (25.0-35.0); MCV 90.1 fL (80.0-100.0); Mean Platelet Volume 6.6; Monocytes # (A) 0.4 k/uL (0-1.0); Monocytes % (A) 6 %; Neutrophils # (A) 4.3 k/uL (1.3-7.7); Neutrophils % (A) 69 %; Platelet Count 245 k/uL (150-450); RBC 3.83 m/uL (3.80-5.40); RDW 12.6 % (11.5-15.5); WBC 6.3 k/uL (3.8-10.6)
[2019-03-24 21:03] LABS: Appearance,Urine Cloudy (Clear); Bacteria,Urine Rare /hpf; Bilirubin,Urine Negative (Negative); Blood,Urine Trace (Negative); Color,Urine Yellow; Glucose,Urine (UA) Negative (Negative); Ketones,Urine Negative (Negative); Leukocyte Esterase,Urine Negative (Negative); Nitrite,Urine Negative (Negative); PH, Urine 5.5 (5.0-8.0); Protein,Urine Negative (Negative); RBC,Urine 1 /hpf (0-5); Specific Gravity,Urine 1.018 (1.001-1.035); Squamous Epithelial Cell,Urine 12 /hpf (0-4); Urobilinogen,Urine <2.0 mg/dL (<2.0); WBC,Urine 2 /hpf (0-5)
[2019-03-24 21:04] LABS: ALT 20 U/L (9-52); AST 12 U/L (14-36); Albumin 3.9 g/dL (3.5-5.0); Alkaline Phosphatase 54 U/L (38-126); Amylase 34 U/L (30-110); Anion Gap 9 mmol/L; Blood Urea Nitrogen 10 mg/dL (7-17); Carbon Dioxide 24 mmol/L (22-30); Chloride 105 mmol/L (98-107); Glucose 58 mg/dL (74-99); Lipase 86 U/L (23-300); Potassium 3.7 mmol/L (3.5-5.1); Sodium 138 mmol/L (137-145); Total Bilirubin 0.2 mg/dL (0.2-1.3); Total Protein 6.7 g/dL (6.3-8.2)
[2019-03-24 21:10] VITALS: RESP 16
[2019-03-24 22:19] VITALS: BP 132/79; PULSE 75; TEMP 98
== END 2019-03-24 22:42 | disposition home or self-care (01) ==
LOC: EC 19:08
DX: O21.0 Mild hyperemesis gravidarum (principal); O99.89 Other specified diseases and conditions complicating pregnancy, childbirth and the puerperium; R19.7 Diarrhea, unspecified; R42 Dizziness and giddiness; Z3A.10 10 weeks gestation of pregnancy; Z90.49 Acquired absence of other specified parts of digestive tract; Z98.84 Bariatric surgery status; Z98.890 Other specified postprocedural states; Z87.442 Personal history of urinary calculi; Z79.890 Hormone replacement therapy; Z79.899 Other long term (current) drug therapy; Z91.048 Other nonmedicinal substance allergy status
CPT/HCPCS: 36415; 80053; 82150; 83690; 85025; 81001; 99284; 96374; 96375; 96361; J1200; J2765

== ENCOUNTER → 2019-04-15 | Outpatient (CLI) | payer BC, OTHER ==
[2019-04-15 15:44] VITALS: BP 137/78; PULSE 85; RESP 16; TEMP 98.2; BMI 32.7
--- NOTE | 2019-04-15 16:44 | P.PN ---
Subjective Progress Note Date: 04/15/19 DATE OF SERVICE: 04/15/2019 CHIEF COMPLAINT: with history of bariatric procedure HISTORY OF PRESENT ILLNESS: Rosy Quintana is a 38-year-old female who has history of gastric bypass in 2014. She comes in her 1st trimester and had severe hyperemesis gravidum. She is on medications and is now doing better. She is seeing a MFM. At height of 5 feet 6.5 inches, ideal body weight is 154 pounds. She comes in 206 pounds from 191 pounds, 9 months ago. She has gained 15 pounds in 9 months and comes in her 1st trimester of . Highest weight was 420 pounds. Her highest body mass index was 66.9. Present BMI 32.8. Total lifetime weight loss 214 pounds. Percent excess weight loss 81%. PHYSICAL EXAM: VITAL SIGNS: Height 5 foot 6.5 inches, weight 206 pounds. BMI 32.8 Vital Signs Temp 98.2 F 04/15/19 15:41 Pulse 85 04/15/19 15:41 Resp 16 04/15/19 15:41 BP 137/78 04/15/19 15:41 Pulse Ox GENERAL: Well-developed in no acute distress. HEENT: No scleral icterus. Extraocular movements grossly intact. Hears conversational speech. No nasal drainage. NECK: Supple without lymphadenopathy. CHEST: Nonlabored respirations with equal bilateral excursions. CARDIOVASCULAR: Regular rate and regular rhythm. Distal 2+ pulses. ABDOMEN: Obese, soft, nondistended. Gravid MUSCULOSKELETAL: No clubbing, cyanosis. Gross strength 5/5 distal lower extremities. NEURO: No focal or lateralizing signs. Cranial nerves 2 through 12 grossly within normal limits. PSYCH: Appropriate affect. Alert and oriented to person, place and time. SKIN: Good skin turgor. Well perfused. ASSESSMENT: 1. Morbid obesity due to excess caloried 2. Body mass index of 66.9 to 32.8 3. Kidney stones 4. Hypothyroidism 5. Gastrointestinal bleed 6. History of gastrojejunal ulcer and stricture 7. Fatigue secondary to iron deficiency anemia 8. Secondary hyperparathyroidism 9. Vitamin A deficiency 10. Severe iron deficiency anemia 11. History of gastric bypass 12. , 1st trimester PLAN: 1. Recommend bariatric labs. 2. Recommend correction with nutritional deficiencies Laboratory Last Values WBC 5.7 k/uL (3.8-10.6) 04/15/19 17:06 RBC 3.94 m/uL (3.80-5.40) 04/15/19 17:06 Hgb 11.6 gm/dL (11.4-16.0) 04/15/19 17:06 Hct 36.0 % (34.0-46.0) 04/15/19 17:06 MCV 91.2 fL (80.0-100.0) 04/15/19 17:06 MCH 29.3 pg (25.0-35.0) 04/15/19 17:06 MCHC 32.1 g/dL (31.0-37.0) 04/15/19 17:06 RDW 12.9 % (11.5-15.5) 04/15/19 17:06 Plt Count 241 k/uL (150-450) 04/15/19 17:06 PT 9.7 sec (9.0-12.0) 04/15/19 17:06 INR 0.9 (<1.2) 04/15/19 17:06 APTT 23.6 sec (22.0-30.0) 04/15/19 17:06 Sodium 136 mmol/L (135-145) 04/15/19 17:06 Potassium 4.1 mmol/L (3.5-5.5) 04/15/19 17:06 Chloride 105 mmol/L (96-109) 04/15/19 17:06 Carbon Dioxide 23.2 mmol/L (21.6-31.8) 04/15/19 17:06 Anion Gap 7.80 mmol/L (4.00-12.00) 04/15/19 17:06 BUN 10.0 mg/dL (9.0-27.0) 04/15/19 17:06 Creatinine 0.7 mg/dL (0.6-1.5) 04/15/19 17:06 Est GFR (CKD-EPI)AfAm 129.2 (60.0-200.0) 04/15/19 17:06 Est GFR (CKD-EPI)NonAf 111.5 (60.0-200.0) 04/15/19 17:06 BUN/Creatinine Ratio 14.29 Ratio (12.00-20.00) 04/15/19 17:06 Glucose 80 mg/dL (70-110) 04/15/19 17:[address] Glu mg/dL 105 04/15/19 17:06 Hemoglobin A1c 5.3 % (4.0-6.0) 04/15/19 17:06 Calcium 8.6 mg/dL (8.7-10.3) L 04/15/19 17:06 Total Bilirubin 0.2 mg/dL (0.2-1.2) 04/15/19 17:06 AST 16 U/L (13-35) 04/15/19 17:06 ALT 15 U/L (8-44) 04/15/19 17:06 Alkaline Phosphatase 54 U/L (41-126) 04/15/19 17:06 Total Protein 6.0 g/dL (6.2-8.2) L 04/15/19 17:06 Albumin 3.90 g/dL (3.80-4.90) 04/15/19 17:06 Globulin 2.1 g/dL (1.6-3.3) 04/15/19 17:06 Albumin/Globulin Ratio 1.86 g/dL (1.60-3.17) 04/15/19 17:06 Prealbumin 17.0 mg/dL (18.0-42.0) L 04/15/19 17:06 Vitamin D 25-Hydroxy 17.0 ng/mL (30.0-100.0) L 04/15/19 17:06 Folate 16.5 ng/mL 04/15/19 17:06 TSH 2.020 uIU/mL (0.350-5.500) 04/15/19 17:06 PTH Intact 48.8 pg/mL (14.0-72.0) 04/15/19 17:06 Copper 2224 ug/L (810-1990) H 04/15/19 17:06 Selenium 101 mcg/L (63-160) 04/15/19 17:06 Zinc 39 ug/dL (60-130) L 04/15/19 17:06 Vitamin D is low Zinc is low Protein is low, recommend correction Objective - Vital Signs Vital signs: Vital Signs Temp 98.2 F 04/15/19 15:41 Pulse 85 04/15/19 15:41 Resp 16 04/15/19 15:41 BP 137/78 05/22/19 15:41 Pulse Ox Intake & Output 04/14/19 04/15/19 04/15/19 18:59 06:59 18:59 Weight 93.44 kg - Labs CBC & Chem 7: 04/15/19 17:06 04/15/19 17:06
[2019-04-15 17:30] LABS: HGB 11.6 gm/dL (11.4-16.0); MCH 29.3 pg (25.0-35.0); MCHC 32.1 g/dL (31.0-37.0); MCV 91.2 fL (80.0-100.0); Mean Platelet Volume 6.5; Platelet Count 241 k/uL (150-450); RBC 3.94 m/uL (3.80-5.40); RDW 12.9 % (11.5-15.5); WBC 5.7 k/uL (3.8-10.6)
[2019-04-15 17:42] LABS: INR 0.9 (<1.2); Partial Thromboplastin Time 23.6 sec (22.0-30.0); Prothrombin Time 9.7 sec (9.0-12.0)
[2019-04-15 22:46] LABS: Parathyroid Hormone Intact 48.8 pg/mL (14.0-72.0)
[2019-04-15 23:54] LABS: African American GFR (CKD) 129.2 (60.0-200.0); Albumin 3.9 g/dL (3.80-4.90); Albumin/Globulin Ratio 1.86 (1.60-3.17); Anion Gap 7.8 mmol/L (4.00-12.00); BUN/Creat Ratio 14.29 Ratio (12.00-20.00); Calcium 8.6 mg/dL (8.7-10.3); Carbon Dioxide 23.2 mmol/L (21.6-31.8); Globulin 2.1 g/dL (1.6-3.3); Potassium 4.1 mmol/L (3.5-5.5); Total Bilirubin 0.2 mg/dL (0.2-1.2)
[2019-04-16 00:06] LABS: Folate, Serum 16.5 ng/mL
[2019-04-16 00:12] LABS: Hemoglobin A1C 5.3 % (4.0-6.0)
[2019-04-16 13:36] LABS: Zinc, Serum 39 ug/dL (60-130)
[2019-04-18 12:36] LABS: Selenium 101 mcg/L (63-160)
== END | disposition home or self-care (01) ==
LOC: BARWHC3 15:19
PROVIDERS: ATTEND Surgery Plastic and Reconstructive Surgery
DX: O99.211 Obesity complicating pregnancy, first trimester (principal); E66.01 Morbid (severe) obesity due to excess calories; O26.831 Pregnancy related renal disease, first trimester; N20.0 Calculus of kidney; O99.281 Endocrine, nutritional and metabolic diseases complicating pregnancy, first trimester; E03.9 Hypothyroidism, unspecified; E50.9 Vitamin A deficiency, unspecified; O99.611 Diseases of the digestive system complicating pregnancy, first trimester; K92.2 Gastrointestinal hemorrhage, unspecified; O26.811 Pregnancy related exhaustion and fatigue, first trimester; O99.011 Anemia complicating pregnancy, first trimester; D50.9 Iron deficiency anemia, unspecified; O99.841 Bariatric surgery status complicating pregnancy, first trimester; E21.1 Secondary hyperparathyroidism, not elsewhere classified; E89.1 Postprocedural hypoinsulinemia; K90.9 Intestinal malabsorption, unspecified; E55.9 Vitamin D deficiency, unspecified; K76.9 Liver disease, unspecified; N19 Unspecified kidney failure; K50.90 Crohn's disease, unspecified, without complications; Z87.19 Personal history of other diseases of the digestive system; Z3A.00 Weeks of gestation of pregnancy not specified
CPT/HCPCS: 80053; 82306; 82525; 82746; 83036; 83970; 84134; 84255; 84443; 84630; 85027; 85610; 85730; 99211

== ENCOUNTER → 2019-05-13 | Outpatient (CLI) | payer BC, OTHER ==
[2019-05-13 16:26] VITALS: BP 122/79; PULSE 84; TEMP 98.2; BMI 33.2
--- NOTE | 2019-05-13 16:39 | P.PN ---
Subjective Progress Note Date: 05/13/19 DATE OF SERVICE: 05/13/2019 CHIEF COMPLAINT: with history of bariatric procedure HISTORY OF PRESENT ILLNESS: Rosy Quintana is a 38-year-old female who has history of gastric bypass in 2014. She comes in for follow up with history of and hyperemesis gravidum. Recent blood work showed high copper with history of low iron. She is increasing her protein intake. She is in her 2nd trimester. She is seeing her MFM. At height of 5 feet 6.5 inches, ideal body weight is 154 pounds. She comes in 209 pounds from 206 pounds, 1 monthsago. She has gained 3 pounds in 1 month. Highest weight was 420 pounds. Her highest body mass index was 66.9. Present BMI 33.2. Total lifetime weight loss 211 pounds. Percent excess weight loss 79 %. PHYSICAL EXAM: VITAL SIGNS: Height 5 foot 6.5 inches, weight 209 pounds. BMI 33.2 Vital Signs Temp 98.2 F 05/13/19 16:24 Pulse 84 05/13/19 16:24 Resp BP 122/79 05/13/19 16:24 Pulse Ox GENERAL: Well-developed in no acute distress. HEENT: No scleral icterus. Extraocular movements grossly intact. Hears convers ational speech. No nasal drainage. NECK: Supple without lymphadenopathy. CHEST: Nonlabored respirations with equal bilateral excursions. CARDIOVASCULAR: Regular rate and regular rhythm. Distal 2+ pulses. ABDOMEN: Obese, soft, nondistended. Gravid MUSCULOSKELETAL: No clubbing, cyanosis. Gross strength 5/5 distal lower extremities. NEURO: No focal or lateralizing signs. Cranial nerves 2 through 12 grossly within normal limits. PSYCH: Appropriate affect. Alert and oriented to person, place and time. SKIN: Good skin turgor. Well perfused. LABS: Reviewed with low iron, increased copper, vitamin D is low ASSESSMENT: 1. Morbid obesity due to excess caloried 2. Body mass index of 66.9 to 33.2 3. Kidney stones 4. Hypothyroidism 5. Gastrointestinal bleed 6. History of gastrojejunal ulcer and stricture 7. Fatigue secondary to iron deficiency anemia 8. Secondary hyperparathyroidism 9. Vitamin D deficiency 10. Severe iron deficiency anemia 11. History of gastric bypass 12. , 1st trimester 13. Copper excess. PLAN: 1. Recommend re-check of labs after correction Objective - Vital Signs Vital signs: Vital Signs Temp 98.2 F 05/13/19 16:24 Pulse 84 05/13/19 16:24 Resp BP 122/79 05/13/19 16:24 Pulse Ox Intake & Output 05/12/19 05/13/19 05/13/19 18:59 06:59 18:59 Weight 94.801 kg - Labs CBC & Chem 7: 05/13/19 17:03 05/13/19 17:03
[2019-05-13 17:22] LABS: HCT 33.3 % (34.0-46.0); HGB 10.9 gm/dL (11.4-16.0); MCH 29.9 pg (25.0-35.0); MCHC 32.7 g/dL (31.0-37.0); MCV 91.4 fL (80.0-100.0); Mean Platelet Volume 7.7; Platelet Count 222 k/uL (150-450); RBC 3.64 m/uL (3.80-5.40); RDW 13.9 % (11.5-15.5); WBC 5.4 k/uL (3.8-10.6)
[2019-05-13 17:29] LABS: INR 0.9 (<1.2); Partial Thromboplastin Time 22.9 sec (22.0-30.0); Prothrombin Time 9.8 sec (9.0-12.0)
[2019-05-13 23:16] LABS: African American GFR (CKD) 135.9 (60.0-200.0); Albumin 3.9 g/dL (3.80-4.90); Albumin/Globulin Ratio 1.63 (1.60-3.17); Anion Gap 8.9 mmol/L (4.00-12.00); BUN/Creat Ratio 13.33 Ratio (12.00-20.00); Calcium 8.5 mg/dL (8.7-10.3); Carbon Dioxide 21.1 mmol/L (21.6-31.8); Globulin 2.4 g/dL (1.6-3.3); LDL Cholesterol,Calculated 99.4 mg/dL (0.0-131.0); Magnesium 1.6 mg/dL (1.5-2.4); Phosphorus 4.2 mg/dL (2.4-5.1); Potassium 3.9 mmol/L (3.5-5.5); Total Bilirubin 0.2 mg/dL (0.3-1.2); Total Protein 6.3 g/dL (6.2-8.2); VLDL Calculation 16.6 mg/dL (5.00-40.00)
[2019-05-13 23:30] LABS: Vitamin D 25 Hydroxy 21.2 ng/mL (30.0-100.0)
[2019-05-13 23:39] LABS: Folate, Serum 16.6 ng/mL; Iron Saturation 6.76 (12.00-45.00)
[2019-05-14 00:02] LABS: Parathyroid Hormone Intact 76.3 pg/mL (14.0-72.0)
[2019-05-14 01:38] LABS: Hemoglobin A1C 5.1 % (4.0-6.0)
[2019-05-14 15:05] LABS: Vit B1(Thiamine) 62 ug/L (38-122)
[2019-05-15 07:25] LABS: Vitamin A 32 ug/dL (38-106)
[2019-05-15 19:14] LABS: Selenium 109 mcg/L (63-160)
== END | disposition home or self-care (01) ==
LOC: BARWHC3 15:59
PROVIDERS: ATTEND Surgery Plastic and Reconstructive Surgery
DX: O99.841 Bariatric surgery status complicating pregnancy, first trimester (principal); O99.211 Obesity complicating pregnancy, first trimester; E66.01 Morbid (severe) obesity due to excess calories; O99.281 Endocrine, nutritional and metabolic diseases complicating pregnancy, first trimester; E03.9 Hypothyroidism, unspecified; E55.9 Vitamin D deficiency, unspecified; N25.81 Secondary hyperparathyroidism of renal origin; O26.831 Pregnancy related renal disease, first trimester; N20.0 Calculus of kidney; O99.611 Diseases of the digestive system complicating pregnancy, first trimester; K92.2 Gastrointestinal hemorrhage, unspecified; O26.811 Pregnancy related exhaustion and fatigue, first trimester; O99.011 Anemia complicating pregnancy, first trimester; D50.9 Iron deficiency anemia, unspecified; Z87.11 Personal history of peptic ulcer disease; Z3A.00 Weeks of gestation of pregnancy not specified
CPT/HCPCS: 80053; 80061; 82306; 82525; 82607; 82728; 82746; 83036; 83540; 83550; 83735; 83970; 84100; 84134; 84255; 84425; 84443; 84590; 84630; 85027; 85610; 85730; 99211

== ENCOUNTER 2019-05-14 19:03 | Emergency (ER) | payer BC, OTHER ==
[2019-05-14 19:14] VITALS: TEMP 98.1
[2019-05-14] MEDS ORDERED: ACETAMINOPHEN TAB 500 MG TAB PO STA (19:45)
[2019-05-14] MEDS ORDERED: SODIUM CHLORIDE 0.9% 1,000 ML IV ONE (19:45)
[2019-05-14 20:33] LABS: Basophils % (A) 0 %; Eosinophils # (A) 0.2 k/uL (0-0.7); Eosinophils % (A) 3 %; HCT 33.2 % (34.0-46.0); HGB 11.3 gm/dL (11.4-16.0); Lymphocytes % (A) 20 %; MCH 30.1 pg (25.0-35.0); MCV 88.6 fL (80.0-100.0); Monocytes # (A) 0.3 k/uL (0-1.0); Monocytes % (A) 6 %; Neutrophils # (A) 3.5 k/uL (1.3-7.7); Neutrophils % (A) 69 %; Platelet Count 247 k/uL (150-450); RBC 3.74 m/uL (3.80-5.40); RDW 13.4 % (11.5-15.5)
[2019-05-14 20:34] LABS: Appearance,Urine Cloudy (Clear); Bacteria,Urine Few /hpf; Bilirubin,Urine Negative (Negative); Blood,Urine Negative (Negative); Color,Urine Light Yellow; Glucose,Urine (UA) 2+ (Negative); Ketones,Urine Negative (Negative); Leukocyte Esterase,Urine Trace (Negative); Mucus,Urine Rare /hpf; Nitrite,Urine Negative (Negative); Protein,Urine Trace (Negative); RBC,Urine 2 /hpf (0-5); Specific Gravity,Urine 1.006 (1.001-1.035); Squamous Epithelial Cell,Urine 7 /hpf (0-4); Urobilinogen,Urine <2.0 mg/dL (<2.0); WBC,Urine 3 /hpf (0-5)
[2019-05-14 20:43] LABS: ALT 14 U/L (9-52); AST 16 U/L (14-36); African American GFR (CKD) >90 (>60 ml/min/1.73 sqM); Albumin 3.8 g/dL (3.5-5.0); Alkaline Phosphatase 54 U/L (38-126); Anion Gap 7 mmol/L; Blood Urea Nitrogen 8 mg/dL (7-17); Calcium 8.8 mg/dL (8.4-10.2); Carbon Dioxide 21 mmol/L (22-30); Chloride 112 mmol/L (98-107); Glucose 50 mg/dL (74-99); Potassium 3.6 mmol/L (3.5-5.1); Sodium 140 mmol/L (137-145); Total Bilirubin 0.2 mg/dL (0.2-1.3); Total Protein 6.7 g/dL (6.3-8.2)
--- NOTE | 2019-05-14 21:09 | ED ---
Female Urogenital HPI - General Chief complaint: Urogenital Stated complaint: 18 weeks preg/ vomiting Time Seen by Provider: 05/14/19 19:21 Source: patient Mode of arrival: wheelchair Limitations: no limitations - History of Present Illness Initial comments: 38 year-old female patient who is 18 weeks presents to the emergency department today for evaluation of lower abdominal cramping and low back pain. Patient states that this started this morning and feels like contractions. Patient is , with history of placenta previa and labor at 28 weeks gestation. Patient denies any abnormal vaginal bleeding or discharge. States that her RN OFFICE is located in [place] as she has high risk and currently on bedrest. She denies any hematuria, dysuria, urinary frequency, urinary urgency. Denies any vomiting with states she has been nauseated. She is taking Diclegis for nausea. Denies any fever or chills. Patient denies any recent rash, shortness breath, chest pain, diarrhea, constipation, numbness, tingling, dizziness, weakness, headache, visual changes, or any other complaints. - Related Data Home Medications Medication Instructions Recorded Confirmed Pnv,Calcium 72/Iron/Folic Acid 1 tab PO HS 03/17/19 05/14/19 [ Plus Tablet] Levothyroxine Sodium [Synthroid] 50 mcg PO DAILY 03/24/19 05/14/19 Aspirin [Adult Low Dose Aspirin EC] 162 mg PO HS 04/15/19 05/14/19 Doxylamine/Pyridoxine HCl (B6) 1 tab PO BID@0900,1800 04/15/19 05/14/19 [Dodie Mchugh 10-10 mg Tablet] Methyl-Folate 2 mg PO DAILY 04/15/19 05/14/19 Multivitamin [Multivitamins Adult 1 tab PO DAILY 04/15/19 05/14/19 Gummies] Doxylamine/Pyridoxine HCl (B6) 2 tab PO HS 05/14/19 05/14/19 [Diclegis 10-10 mg Tablet] Ergocalciferol [Vitamin D2] 50,000 unit PO FR 05/14/19 05/14/19 Allergies Allergy/AdvReac Type Severity Reaction Status Date / Time adhesive tape Allergy Rash/Hives Verified 05/14/19 21:24 Review of Systems ROS Statement: Those systems with pertinent positive or pertinent negative responses have been documented in the HPI. ROS Other: All systems not noted in ROS Statement are negative. Past Medical History Additional Past Medical History / Comment(s): ABD PAIN, VOMITING, hx of kidney stones, History of Any Multi-Drug Resistant Organisms: None Reported Past Surgical History: Bariatric Surgery, Section, Cholecystectomy, Tubal Ligation Additional Past Surgical History / Comment(s): lap band 2010 lap band removed and gastric bypass 2013, c section x 2 reversal of tubal ligation 2016, conceived in January 2019 led to hyperemesis state\bedrest for first trimester Past Anesthesia/Blood Transfusion Reactions: No Reported Reaction Past Psychological History: No Psychological Hx Reported Smoking Status: Never smoker Past Alcohol Use History: None Reported Past Drug Use History: None Reported General Exam Limitations: no limitations General appearance: alert, in no apparent distress, other (Physical well- developed, well-nourished adult female patient in no acute distress. Vital signs upon presentation are temperature 98.1F, pulse 84, respirations 18, blood pressure 131/83, pulse ox 99% on room air.) Eye exam: Present: normal appearance, PERRL, EOMI. Absent: scleral icterus, conjunctival injection, periorbital swelling ENT exam: Present: normal exam, normal oropharynx, mucous membranes moist Respiratory exam: Present: normal lung sounds bilaterally. Absent: respiratory distress, wheezes, rales, rhonchi, stridor Cardiovascular Exam: Present: regular rate, normal rhythm, normal heart sounds. Absent: systolic murmur, diastolic murmur, rubs, gallop, clicks GI/Abdominal exam: Present: soft, normal bowel sounds. Absent: distended, tenderness, guarding, rebound, rigid Back exam: Present: normal inspection. Absent: CVA tenderness (R), CVA tenderness (L) Neurological exam: Present: alert, oriented X3, CN II-XII intact Psychiatric exam: Present: normal affect, normal mood Skin exam: Present: warm, dry, intact, normal color. Absent: rash Course Vital Signs 05/14/19 05/14/19 05/14/19 19:10 20:03 21:09 Temperature 98.1 F Pulse Rate 84 73 76 Respiratory 18 18 16 Rate Blood Pressure 131/83 120/88 122/77 O2 Sat by Pulse 99 98 99 Oximetry 05/14/19 22:30 Temperature Pulse Rate 77 Respiratory 16 Rate Blood Pressure 132/76 O2 Sat by Pulse 98 Oximetry Medical Decision Making - Medical Decision Making 38 year-old female patient who is 18 weeks presents to the emergency department today for evaluation of lower abdominal pain and cramping. Patient reports feeling that she is having contractions. Denies any abnormal vaginal bleeding or discharge. Visible examination revealed a soft nontender abdomen. Labs reviewed and are unremarkable. Blood sugar was 50, she was given a snack and juice. Ultrasound was obtained and showed no evidence for placental abruption or previa. heart rate 153. On reevaluation patient reports she is feeling better. Pain is improved. She'll be discharged home at this time to follow-up with her RN OFFICE for recheck as soon as possible. Return parameters were discussed in detail. She verbalizes understanding and agrees this plan. - Lab Data Result diagrams: 05/14/19 20:05 05/14/19 20:05 Lab Results 05/14/19 05/14/19 05/14/19 Range/Units 19:55 20:05 20:05 WBC 5.0 (3.8-10.6) k/uL RBC 3.74 L (3.80-5.40) m/uL Hgb 11.3 L (11.4-16.0) gm/dL Hct 33.2 L (34.0-46.0) % MCV 88.6 (80.0-100.0) fL MCH 30.1 (25.0-35.0) pg MCHC 34.0 (31.0-37.0) g/dL RDW 13.4 (11.5-15.5) % Plt Count 247 (150-450) k/uL Neutrophils % 69 % Lymphocytes % 20 % Monocytes % 6 % Eosinophils % 3 % Basophils % 0 % Neutrophils # 3.5 (1.3-7.7) k/uL Lymphocytes # 1.0 (1.0-4.8) k/uL Monocytes # 0.3 (0-1.0) k/uL Eosinophils # 0.2 (0-0.7) k/uL Basophils # 0.0 (0-0.2) k/uL Sodium 140 (137-145) mmol/L Potassium 3.6 (3.5-5.1) mmol/L Chloride 112 H (98-107) mmol/L Carbon Dioxide 21 L (22-30) mmol/L Anion Gap 7 mmol/L BUN 8 (7-17) mg/dL Creatinine 0.60 (0.52-1.04) mg/dL Est GFR (CKD-EPI)AfAm >90 (>60 ml/min/1.73 sqM) Est GFR (CKD-EPI)NonAf >90 (>60 ml/min/1.73 sqM) Glucose 50 L (74-99) mg/dL Calcium 8.8 (8.4-10.2) mg/dL Total Bilirubin 0.2 (0.2-1.3) mg/dL AST 16 (14-36) U/L ALT 14 (9-52) U/L Alkaline Phosphatase 54 (38-126) U/L Total Protein 6.7 (6.3-8.2) g/dL Albumin 3.8 (3.5-5.0) g/dL Urine Color Light Yellow Urine Appearance Cloudy H (Clear) Urine pH 6.0 (5.0-8.0) Ur Specific [place] 1.006 (1.001-1.035) Urine Protein Trace H (Negative) Urine Glucose (UA) 2+ H (Negative) Urine Ketones Negative (Negative) Urine Blood Negative (Negative) Urine Nitrite Negative (Negative) Urine Bilirubin Negative (Negative) Urine Urobilinogen <2.0 (<2.0) mg/dL Ur Leukocyte Esterase Trace H (Negative) Urine RBC 2 (0-5) /hpf Urine WBC 3 (0-5) /hpf Ur Squamous Epith Cells 7 H (0-4) /hpf Urine Bacteria Few H (None) /hpf Urine Mucus Rare H (None) /hpf - Radiology Data Radiology results: report reviewed Obstetrical ultrasound was obtained. Report was reviewed in its entirety. Impression by Dr. Garcia shows limited exam no evidence of placenta previa placental abruption. Placenta is 1.5 cm no cervical os. museum technician reports no contraction seen on ultrasound Disposition Clinical Impression: Abdominal pain during Disposition: HOME SELF-CARE Condition: Good Instructions (If sedation given, give patient instructions): Abdominal Pain in (ED) Additional Instructions: Follow-up with your RN OFFICE for recheck as soon as possible. Return to the emergency department immediately for any new, worsening, or concerning symptoms. Is patient prescribed a controlled substance at d/c from ED?: No Referrals: Salo Ferro DO [Primary Care Provider] - 1-2 days Time of Disposition: 22:05
[2019-05-14 21:11] VITALS: RESP 16
--- NOTE | 2019-05-14 21:27 | US ---
EXAMINATION TYPE: US OB limited DATE OF EXAM: 05/14/2019 COMPARISON: NONE CLINICAL HISTORY: pain placnta. Cramping HX of placenta abruption x 7 years ago. EXAM PERFORMED: Transabdominal (TA) GESTATIONAL AGE / DATING No growth performed on today?s study per ordering physician SURVEY PLACENTA: Posterior PREVIA: No Previa Ultrasound evidence of abruption? No (Tech?if abnormal transabdominally?image transvaginally to substantiate abnormality.) HEART RATE: 153 bpm RHYTHM: Normal IMPRESSION: Limited exam shows no evidence of placenta previa or placental abruption. Placenta is 1. 5 cm from the cervical os.
[2019-05-14 22:31] VITALS: BP 132/76; PULSE 77
== END 2019-05-14 22:32 | disposition home or self-care (01) ==
LOC: EC 19:03
DX: O26.892 Other specified pregnancy related conditions, second trimester (principal); R10.30 Lower abdominal pain, unspecified; M54.5 Low back pain; Z3A.18 18 weeks gestation of pregnancy; Z79.82 Long term (current) use of aspirin; Z79.890 Hormone replacement therapy; Z79.899 Other long term (current) drug therapy; Z91.048 Other nonmedicinal substance allergy status
CPT/HCPCS: 36415; 76815; 80053; 81001; 85025; 96360; 99284

== ENCOUNTER → 2019-06-24 | Outpatient (CLI) | payer BC, OTHER ==
[2019-06-24 13:59] LABS: HCT 30.7 % (34.0-46.0); MCH 29.5 pg (25.0-35.0); MCHC 32.5 g/dL (31.0-37.0); MCV 90.7 fL (80.0-100.0); Platelet Count 222 k/uL (150-450); RBC 3.38 m/uL (3.80-5.40); RDW 12.8 % (11.5-15.5); WBC 5.1 k/uL (3.8-10.6)
[2019-06-24 14:13] LABS: INR 0.9 (<1.2); Partial Thromboplastin Time 22.2 sec (22.0-30.0); Prothrombin Time 9.7 sec (9.0-12.0)
[2019-06-24 20:39] LABS: Albumin 3.6 g/dL (3.80-4.90); Albumin/Globulin Ratio 1.8 (1.60-3.17); Anion Gap 11.9 mmol/L (4.00-12.00); Calcium 8.2 mg/dL (8.7-10.3); Carbon Dioxide 21.1 mmol/L (21.6-31.8); Chol/HDL Ratio 2.47; LDL Cholesterol,Calculated 111.8 mg/dL (0.0-131.0); Magnesium 1.4 mg/dL (1.5-2.4); Non-African American GFR(CKD) 116.4 (60.0-200.0); Phosphorus 3.6 mg/dL (2.4-5.1); Potassium 3.7 mmol/L (3.5-5.5); Total Bilirubin 0.3 mg/dL (0.3-1.2); Total Protein 5.6 g/dL (6.2-8.2); VLDL Calculation 31.2 mg/dL (5.00-40.00)
[2019-06-24 20:48] LABS: Vitamin D 25 Hydroxy 21.4 ng/mL (30.0-100.0)
[2019-06-24 20:49] LABS: Ferritin 2.7 ng/mL (10.0-291.0); Folate, Serum 15.8 ng/mL; Iron Saturation 10.38 (12.00-45.00)
[2019-06-25 13:08] LABS: Zinc, Serum 46 ug/dL (60-130)
[2019-06-25 15:13] LABS: Vitamin A 36 ug/dL (38-106)
[2019-06-26 06:34] LABS: Vit B1(Thiamine) 53 ug/L (38-122)
[2019-06-27 12:02] LABS: Selenium 104 mcg/L (63-160)
== END | disposition home or self-care (01) ==
LOC: LABWHC1 13:28
PROVIDERS: ATTEND Surgery Plastic and Reconstructive Surgery
DX: E21.1 Secondary hyperparathyroidism, not elsewhere classified (principal); E89.1 Postprocedural hypoinsulinemia; D50.9 Iron deficiency anemia, unspecified; K90.9 Intestinal malabsorption, unspecified; E55.9 Vitamin D deficiency, unspecified; K74.1 Hepatic sclerosis; N19 Unspecified kidney failure; K50.90 Crohn's disease, unspecified, without complications; E66.01 Morbid (severe) obesity due to excess calories
CPT/HCPCS: 36415; 80053; 80061; 82306; 82525; 82607; 82728; 82746; 83540; 83550; 83735; 83970; 84100; 84134; 84255; 84425; 84443; 84590; 84630; 85027; 85610; 85730

== ENCOUNTER → 2019-07-01 | Outpatient (CLI) | payer BC, OTHER ==
[2019-07-01 13:30] VITALS: BP 115/74; PULSE 97; TEMP 98.6; BMI 34.4
--- NOTE | 2019-07-01 14:26 | P.PN ---
Subjective Progress Note Date: 07/01/19 HPI: She is less nauseated. She is now in her 3rd trimester. ABDOMEN: Gravid ASSESSMENT: 1. PLAN: 1. Follow up her OB 2. Magnesium 400 mg daily 3. Eat foods rich in Vitamin A and D 4. Eat foods rich in Iron Objective - Vital Signs Vital signs: Vital Signs Temp 98.6 F 07/01/19 13:23 Pulse 97 07/01/19 13:23 Resp BP 115/74 07/01/19 13:23 Pulse Ox Intake & Output 06/30/19 07/01/19 07/01/19 18:59 06:59 18:59 Weight 98.248 kg
== END ==
LOC: BARWHC3 13:03
PROVIDERS: ATTEND Surgery Plastic and Reconstructive Surgery
DX: Z34.93 Encounter for supervision of normal pregnancy, unspecified, third trimester (principal); Z3A.00 Weeks of gestation of pregnancy not specified
CPT/HCPCS: 99211

== ENCOUNTER → 2019-12-18 | Outpatient (CLI) | payer BC, OTHER ==
[2019-12-18 14:36] LABS: HCT 33.4 % (34.0-46.0); HGB 9.7 gm/dL (11.4-16.0); Hypochromasia Marked; MCH 22.4 pg (25.0-35.0); MCV 77.5 fL (80.0-100.0); Mean Platelet Volume 7.2; Microcytosis Slight; Platelet Count 350 k/uL (150-450); RBC 4.32 m/uL (3.80-5.40); RDW 15.3 % (11.5-15.5); WBC 4.5 k/uL (3.8-10.6)
[2019-12-18 14:49] LABS: Partial Thromboplastin Time 22.2 sec (22.0-30.0); Prothrombin Time 10.1 sec (9.0-12.0)
[2019-12-18 20:40] LABS: Hemoglobin A1C 5.3 % (4.0-6.0)
[2019-12-18 21:02] LABS: % Iron Saturation 3.2 (12.00-45.00); African American GFR (CKD) 128.3 (60.0-200.0); Albumin 4.4 g/dL (3.80-4.90); Albumin/Globulin Ratio 2.2 (1.60-3.17); Anion Gap 7.6 mmol/L (4.00-12.00); BUN/Creat Ratio 18.57 Ratio (12.00-20.00); Calcium 8.8 mg/dL (8.7-10.3); Carbon Dioxide 23.4 mmol/L (21.6-31.8); Chol/HDL Ratio 2.25; Non-African American GFR(CKD) 110.7 (60.0-200.0); Total Bilirubin 0.2 mg/dL (0.2-1.2); Total Protein 6.4 g/dL (6.2-8.2)
[2019-12-18 21:23] LABS: Magnesium 1.7 mg/dL (1.5-2.4); Phosphorus 4.3 mg/dL (2.4-5.1)
[2019-12-18 22:06] LABS: Ferritin 2.5 ng/mL (10.0-291.0); Folate, Serum 10.3 ng/mL
[2019-12-21 16:08] LABS: Zinc, Serum 45 ug/dL (60-130)
[2019-12-22 07:45] LABS: Vitamin A 32 ug/dL (38-106)
[2019-12-22 08:15] LABS: Vit B1(Thiamine) 59 ug/L (38-122)
== END ==
LOC: LABWHC1 13:57
PROVIDERS: ATTEND Surgery Plastic and Reconstructive Surgery
DX: E66.01 Morbid (severe) obesity due to excess calories (principal); E21.1 Secondary hyperparathyroidism, not elsewhere classified; E89.1 Postprocedural hypoinsulinemia; D50.9 Iron deficiency anemia, unspecified; E44.0 Moderate protein-calorie malnutrition; E55.9 Vitamin D deficiency, unspecified; K74.1 Hepatic sclerosis; N19 Unspecified kidney failure; K50.90 Crohn's disease, unspecified, without complications
CPT/HCPCS: 36415; 80053; 80061; 82306; 82525; 82607; 82728; 82746; 83036; 83540; 83550; 83735; 83970; 84100; 84134; 84255; 84425; 84443; 84590; 84630; 85027; 85610; 85730

== ENCOUNTER → 2019-12-23 | Outpatient (CLI) | payer BC, OTHER ==
[2019-12-23 13:32] VITALS: BP 157/90; PULSE 74; RESP 16; TEMP 98; BMI 33.5
--- NOTE | 2019-12-23 14:32 | P.PN ---
Subjective Progress Note Date: 12/23/19 DATE OF SERVICE: 12/23/2019 CHIEF COMPLAINT: Status post gastric bypass HISTORY OF PRESENT ILLNESS: Rosy Quintana is a 39-year-old female who has gastric bypass in 2014. She is 4+ years out. She is 12 weeks post . She denies any weakness. She reports fatigue. No belly pain. No dysphagia. She only gained 5 pounds since her baby. She reports dying on the table twice during her delivery. At height of 5 feet 6.5 inches, ideal body weight is 154 pounds. She comes in 210 pounds from 216 pounds, 5 months ago. She has lost 6 pounds in 5 months. Highest weight was 420 pounds. Her highest body mass index was 66.9. Present BMI 33.5. Total lifetime weight loss 209 pounds. Percent excess weight loss 79 %. PHYSICAL EXAM: VITAL SIGNS: Height 5 foot 6.5 inches, weight 210 pounds. BMI 33.5 Vital Signs Temp 98 F 12/23/19 13:28 Pulse 74 12/23/19 13:28 Resp 16 12/23/19 13:28 BP 157/90 12/23/19 13:28 Pulse Ox GENERAL: Well-developed in no acute distress. HEENT: No scleral icterus. Extraocular movements grossly intact. Hears conversational speech. No nasal drainage. NECK: Supple without lymphadenopathy. CHEST: Nonlabored respirations with equal bilateral excursions. CARDIOVASCULAR: Regular rate and regular rhythm. Distal 2+ pulses. ABDOMEN: Obese, soft, nondistended. MUSCULOSKELETAL: No clubbing, cyanosis. NEURO: No focal or lateralizing signs. Cranial nerves 2 through 12 grossly within normal limits. PSYCH: Appropriate affect. Alert and oriented to person, place and time. SKIN: Good skin turgor. Well perfused. LABS: Iron is low, Vitamin A is low, elevated PTH, Hgb is low, Pre-albumin is low, Zinc is low ASSESSMENT: 1. Morbid obesity due to excess caloried 2. Body mass index of 66.9 to 33.5 3. Kidney stones 4. Hypothyroidism 5. Gastrointestinal bleed 6. History of gastrojejunal ulcer and stricture 7. Fatigue secondary to iron deficiency anemia 8. Secondary hyperparathyroidism 9. Vitamin D deficiency 10. Severe iron deficiency anemia 11. History of gastric bypass 12. Vitamin A deficiency 13. Zinc deficiency 14. PLAN: 1. Labs were reviewed with multiple vitamin and mineral deficiencies. 2. Recommend iron infusions for severe and symptomatic iron deficiency prescribed. Objective - Vital Signs Vital signs: Vital Signs Temp 98 F 12/23/19 13:28 Pulse 74 12/23/19 13:28 Resp 16 12/23/19 13:28 BP 157/90 12/23/19 13:28 Pulse Ox Intake & Output 12/22/19 12/23/19 12/23/19 18:59 06:59 18:59 Weight 95.708 kg
== END | disposition home or self-care (01) ==
LOC: BARWHC3 13:06
PROVIDERS: ATTEND Surgery Plastic and Reconstructive Surgery
DX: E66.01 Morbid (severe) obesity due to excess calories (principal); N20.0 Calculus of kidney; E03.9 Hypothyroidism, unspecified; K92.2 Gastrointestinal hemorrhage, unspecified; D50.9 Iron deficiency anemia, unspecified; R53.83 Other fatigue; E55.9 Vitamin D deficiency, unspecified; Z87.11 Personal history of peptic ulcer disease; N25.81 Secondary hyperparathyroidism of renal origin; Z98.84 Bariatric surgery status; E50.9 Vitamin A deficiency, unspecified; E60 Dietary zinc deficiency; O90.9 Complication of the puerperium, unspecified
CPT/HCPCS: 99211

== ENCOUNTER → 2020-07-20 | Outpatient (CLI) | payer BC, OTHER ==
[2020-07-20 14:21] LABS: HCT 37.9 % (34.0-46.0); MCH 29.1 pg (25.0-35.0); MCHC 31.8 g/dL (31.0-37.0); MCV 91.6 fL (80.0-100.0); Mean Platelet Volume 7.8; Platelet Count 244 k/uL (150-450); RBC 4.13 m/uL (3.80-5.40); RDW 12.7 % (11.5-15.5); WBC 5.5 k/uL (3.8-10.6)
[2020-07-20 18:32] LABS: % Iron Saturation 17.09 (12.00-45.00); African American GFR (CKD) 127.4 (60.0-200.0); Albumin 4.2 g/dL (3.80-4.90); Albumin/Globulin Ratio 1.91 (1.60-3.17); Anion Gap 6.4 mmol/L (4.00-12.00); BUN/Creat Ratio 18.57 Ratio (12.00-20.00); Calcium 8.9 mg/dL (8.7-10.3); Carbon Dioxide 25.6 mmol/L (21.6-31.8); Chol/HDL Ratio 2.53; Globulin 2.2 g/dL (1.6-3.3); LDL Cholesterol,Calculated 86.2 mg/dL (0.0-131.0); Magnesium 1.8 mg/dL (1.5-2.4); Non-African American GFR(CKD) 109.9 (60.0-200.0); Phosphorus 3.9 mg/dL (2.4-5.1); Total Bilirubin 0.2 mg/dL (0.3-1.2); Total Protein 6.4 g/dL (6.2-8.2); VLDL Calculation 11.8 mg/dL (5.00-40.00)
[2020-07-20 18:59] LABS: Ferritin 7.5 ng/mL (10.0-291.0); Folate, Serum 16.3 ng/mL
[2020-07-20 22:19] LABS: Hemoglobin A1C 5.2 % (4.0-6.0)
[2020-07-21 02:06] LABS: INR 0.99 (0.90-1.11); Partial Thromboplastin Time 26.9 sec (24.7-29.9); Prothrombin Time 10.6 sec (9.9-11.9)
[2020-07-21 12:14] LABS: Zinc, Serum 44 ug/dL (60-130)
[2020-07-22 07:22] LABS: Vitamin A 31 ug/dL (38-106)
[2020-07-22 22:40] LABS: Selenium 111 mcg/L (63-160)
[2020-07-25 07:26] LABS: Vit B1(Thiamine) 66 ug/L (38-122)
== END | disposition home or self-care (01) ==
LOC: LABWHC1 13:15
PROVIDERS: ATTEND Surgery Plastic and Reconstructive Surgery
DX: E21.1 Secondary hyperparathyroidism, not elsewhere classified (principal); E89.1 Postprocedural hypoinsulinemia; D50.9 Iron deficiency anemia, unspecified; K90.9 Intestinal malabsorption, unspecified; E55.9 Vitamin D deficiency, unspecified; K74.1 Hepatic sclerosis; N19 Unspecified kidney failure; K50.90 Crohn's disease, unspecified, without complications
CPT/HCPCS: 36415; 80053; 80061; 82306; 82525; 82607; 82728; 82746; 83036; 83540; 83550; 83735; 83970; 84100; 84134; 84255; 84425; 84443; 84590; 84630; 85027; 85610; 85730

== ENCOUNTER → 2020-12-15 | Outpatient (CLI) | payer BC, OTHER ==
[2020-12-15 16:34] LABS: HCT 38.8 % (34.0-46.0); MCH 30.3 pg (25.0-35.0); MCHC 33.4 g/dL (31.0-37.0); MCV 90.8 fL (80.0-100.0); Mean Platelet Volume 6.5; Platelet Count 281 k/uL (150-450); RBC 4.28 m/uL (3.80-5.40); RDW 12.4 % (11.5-15.5)
[2020-12-16 00:56] LABS: Hemoglobin A1C 5.2 % (4.0-6.0)
[2020-12-16 03:00] LABS: INR 0.96 (0.90-1.11); Partial Thromboplastin Time 26.8 sec (23.5-31.0); Prothrombin Time 10.4 sec (9.9-11.9)
[2020-12-16 04:15] LABS: Folate, Serum 7.6 ng/mL
[2020-12-16 04:25] LABS: % Iron Saturation 14.66 (12.00-45.00); Albumin 4.7 g/dL (3.80-4.90); Albumin/Globulin Ratio 2.24 (1.60-3.17); Anion Gap 11.1 mmol/L (4.00-12.00); BUN/Creat Ratio 15.56 Ratio (12.00-20.00); Calcium 9.2 mg/dL (8.7-10.3); Carbon Dioxide 22.9 mmol/L (21.6-31.8); Chol/HDL Ratio 2.54; Ferritin 11.1 ng/mL (10.0-291.0); Globulin 2.1 g/dL (1.6-3.3); Magnesium 1.8 mg/dL (1.5-2.4); Non-African American GFR(CKD) 81.1 (60.0-200.0); Phosphorus 4.6 mg/dL (2.4-5.1); Potassium 4.4 mmol/L (3.5-5.5); Total Bilirubin 0.2 mg/dL (0.3-1.2); Total Protein 6.8 g/dL (6.2-8.2)
[2020-12-16 14:11] LABS: Zinc, Serum 46 ug/dL (60-130)
== END | disposition home or self-care (01) ==
LOC: LABWHC1 16:00
PROVIDERS: ATTEND Surgery Plastic and Reconstructive Surgery
DX: D50.8 Other iron deficiency anemias (principal); E66.01 Morbid (severe) obesity due to excess calories; E89.1 Postprocedural hypoinsulinemia; K90.89 Other intestinal malabsorption; E44.0 Moderate protein-calorie malnutrition; E55.9 Vitamin D deficiency, unspecified; K74.1 Hepatic sclerosis; N19 Unspecified kidney failure; K50.90 Crohn's disease, unspecified, without complications
CPT/HCPCS: 36415; 80053; 80061; 82306; 82525; 82607; 82728; 82746; 83036; 83540; 83550; 83735; 83970; 84100; 84134; 84255; 84425; 84443; 84590; 84630; 85027; 85610; 85730

== ENCOUNTER → 2020-12-21 | Outpatient (CLI) | payer BC, OTHER ==
[2020-12-21 15:32] VITALS: BP 132/89; PULSE 74; RESP 18; TEMP 98.3; BMI 38.7
--- NOTE | 2020-12-21 16:11 | P.PN ---
Subjective Progress Note Date: 12/21/20 DATE OF SERVICE: 12/21/2020 CHIEF COMPLAINT: Status post gastric bypass HISTORY OF PRESENT ILLNESS: Rosy Quintana is a 40-year-old female who had gastric bypass in 2014. She is 6 years out. She comes in with moderate weight gain following the of her last child. She has baseline thyroid disorder. She comes in with frustation in her weight gain. Also, she reports new fatigue. She denies abdominal pain. She is looking into correction of her weight gain. At height of 5 feet 6.5 inches, ideal body weight is 154 pounds. She comes in 243 pounds from 228 pounds, 4 months ago. She has gained 16 pounds in 4 months. Highest weight was 420 pounds. Her highest body mass index was 66.9. Present BM I 38.8. Total lifetime weight loss 177 pounds. Percent excess weight loss 66 %. PAST MEDICAL HISTORY: 1. Morbid obesity due to excess calories 2. Body mass index of 66.9, initial 3. Kidney stones. 4. Hypothyroidism 5. History of gastric ulcers 6. MHTFR gene PAST SURGICAL HISTORY: 1. Adjustable gastric band to gastric bypass 2. 3. Tubal ligation 4. Cholecystectomy 5. Upper endoscopy HOME MEDICATIONS: Home Medications Medication Instructions Recorded Confirmed Loratadine-Pseudoeph 10-240 mg 1 tab PO DAILY 07/27/20 12/21/20 [Claritin-D 24 Hour] Multivitamins, Thera [Multivitamin 2 tab PO BID 07/27/20 12/21/20 (formulary)] Omeprazole 40 mg PO DAILY 08/23/20 12/21/20 Sucralfate [Carafate] 1 gm PO BID 08/23/20 12/21/20 Escitalopram [Lexapro] 10 mg PO DAILY 12/21/20 12/21/20 Levothyroxine Sodium 50 mcg PO DAILY 12/21/20 12/21/20 Previous Rx's Medication Instructions Recorded Ergocalciferol [Vitamin D2 50,000 unit PO Q7D #12 cap 07/27/20 (DRISDOL)] Ergocalciferol [Vitamin D2 (1250 1,250 mcg PO WEEKLY #30 cap 12/21/20 Mcg = 51287 Iu)] ALLERGIES: Allergies Allergy/AdvReac Type Severity Reaction Status Date / Time adhesive tape Allergy Rash/Hives Verified 12/21/20 15:24 antibiotics AdvReac Rash/Hives Uncoded 12/21/20 15:24 SOCIAL HISTORY: No active tobacco use. FAMILY HISTORY: No family history of ulcerative colitis disease or Crohn's disease. Family history of morbid obesity. No lupus in the family. No reports of stomach or esophageal cancer. Family history of diabetes type 2. REVIEW OF ORGAN SYSTEMS: CONSTITUTIONAL: At height of 5 feet 6.5 inches, ideal body weight is 154 pounds. She comes in with 191 pounds. Lowest weight of 156 pounds. Her highest body mass index was 66.9. Present BMI 30.5. Total lifetime weight loss 229 pounds. Percent excess weight loss 86%. She is 3 pounds overweight. HEENT: Denies any active troubles with vision or hearing. No troubles with swallowing. ENDOCRINE: No diabetes. No hypothyroidism. CARDIOVASCULAR: No reports of palpitations or heart attacks or chest pain. RESPIRATORY: No active daytime somnolence. No asthma. GI: Has blood per rectum. No diarrhea or constipation. MUSCULOSKELETAL: Has lower back pain and joint pain. Has osteoarthritis of the knees. NEURO: No headaches. No seizure disorders. PSYCH: No depression or suicidal ideation. RHEUMATOLOGIC: No lupus. No rheumatoid arthritis. HEMATOLOGIC: Denies any abnormal bleeding or bruising. No personal history of DVTs. SKIN: No rash. No skin cancer. PHYSICAL EXAM: VITAL SIGNS: Height 5 foot 6.5 inches, weight 243 pounds. BMI 38.8 Vital Signs Temp 98.3 F 12/21/20 15:23 Pulse 74 12/21/20 15:23 Resp 18 12/21/20 15:23 BP 132/89 12/21/20 15:23 Pulse Ox GENERAL: Well-developed in no acute distress. HEENT: No scleral icterus. Extraocular movements grossly intact. Hears conversational speech. No nasal drainage. NECK: Supple without lymphadenopathy. CHEST: Nonlabored respirations with equal bilateral excursions. CARDIOVASCULAR: Regular rate and regular rhythm. Distal 2+ pulses. ABDOMEN: Obese, soft, nondistended. MUSCULOSKELETAL: No clubbing, cyanosis. NEURO: No focal or lateralizing signs. Cranial nerves 2 through 12 grossly within normal limits. PSYCH: Appropriate affect. Alert and oriented to person, place and time. SKIN: Good skin turgor. Well perfused. LABS: Reviewed. Vitamin D is low. PTH is elevated. Zinc is low ASSESSMENT: 1. Morbid obesity due to excess caloried 2. Body mass index of 66.9 to 38.8 3. Kidney stones 4. Hypothyroidism 5. Gastrointestinal bleed 6. History of gastrojejunal ulcer and stricture 7. Fatigue secondary to iron deficiency anemia 8. Secondary hyperparathyroidism 9. Vitamin D deficiency 10. Severe iron deficiency anemia 11. History of gastric bypass 12. Vitamin A deficiency 13. Zinc deficiency 14. Weight gain following bariatric surgery PLAN: 1. Recommend increase synthroid for aggressive thyroid treatment due to persistent weight gain. Goal for TSH less than 1.0 2. Correct Vitamin D with 50,000 units weekly 3. Correct low Zinc with 50 mg daily 4. Recommend food diary journal 5. Recommend bariatric labs 6. Recommend Calcium 1200 mg daily Objective - Vital Signs Vital signs: Vital Signs Temp 98.3 F 12/21/20 15:23 Pulse 74 12/21/20 15:23 Resp 18 12/21/20 15:23 BP 132/89 12/21/20 15:23 Pulse Ox Intake & Output 12/20/20 12/21/20 12/21/20 18:59 06:59 18:59 Weight 110.677 kg
== END | disposition home or self-care (01) ==
LOC: BARWHC3 14:32
PROVIDERS: ATTEND Surgery Plastic and Reconstructive Surgery
DX: E66.01 Morbid (severe) obesity due to excess calories (principal); Z68.44 Body mass index [BMI] 60.0-69.9, adult; N20.0 Calculus of kidney; E03.9 Hypothyroidism, unspecified; K92.2 Gastrointestinal hemorrhage, unspecified; N25.81 Secondary hyperparathyroidism of renal origin; D50.9 Iron deficiency anemia, unspecified; E55.9 Vitamin D deficiency, unspecified; E50.9 Vitamin A deficiency, unspecified; Z98.84 Bariatric surgery status; Z87.11 Personal history of peptic ulcer disease; Z91.09 Other allergy status, other than to drugs and biological substances; Z79.899 Other long term (current) drug therapy; Z79.890 Hormone replacement therapy
CPT/HCPCS: 99211

== ENCOUNTER 2021-11-07 15:21 | Inpatient (IN) | payer BC, OTHER ==
[2021-11-07 16:33] LABS: Basophils % (A) 0 %; Eosinophils # (A) 0.2 k/uL (0-0.7); Eosinophils % (A) 3 %; HCT 36.1 % (34.0-46.0); HGB 11.8 gm/dL (11.4-16.0); Lymphocytes # (A) 0.9 k/uL (1.0-4.8); Lymphocytes % (A) 17 %; MCH 28.1 pg (25.0-35.0); MCHC 32.7 g/dL (31.0-37.0); Mean Platelet Volume 6.7; Monocytes # (A) 0.3 k/uL (0-1.0); Monocytes % (A) 6 %; Neutrophils % (A) 71 %; Platelet Count 430 k/uL (150-450); RDW 13.6 % (11.5-15.5); WBC 5.6 k/uL (3.8-10.6)
[2021-11-07 16:41] LABS: ALT 15 U/L (4-34); AST 20 U/L (14-36); African American GFR (CKD) >90 (>60 ml/min/1.73 sqM); Albumin 3.8 g/dL (3.5-5.0); Alkaline Phosphatase 85 U/L (38-126); Anion Gap 11 mmol/L; Blood Urea Nitrogen 9 mg/dL (7-17); Calcium 9.1 mg/dL (8.4-10.2); Carbon Dioxide 22 mmol/L (22-30); Chloride 106 mmol/L (98-107); Glucose 103 mg/dL (74-99); Lipase 101 U/L (23-300); Non-African American GFR(CKD) >90 (>60 ml/min/1.73 sqM); Potassium 3.7 mmol/L (3.5-5.1); Sodium 139 mmol/L (137-145); Total Bilirubin 0.4 mg/dL (0.2-1.3); Total Protein 6.9 g/dL (6.3-8.2)
[2021-11-07] MEDS ORDERED: HYDROmorphone 0.5 MG/0.5 ML SYRINGE IVP STA ×2 (17:15→18:27)
[2021-11-07] MEDS: ONDANSETRON 4 MG/2 ML VIAL IVP STA (17:24)
--- NOTE | 2021-11-07 18:19 | CT ---
EXAMINATION TYPE: CT abdomen pelvis w con CT DLP: 1894.5 mGycm, Automated exposure control for dose reduction was used. DATE OF EXAM: 11/07/2021 5:59 PM COMPARISON: 11 pelvis 01/14/2019. CLINICAL INDICATION:Female, 41 years old with history of abd pain, hs savannah en y, Abdominal pain and c onstipation. TECHNIQUE: Standard CT of the abdomen and pelvis following the administration of 100 cc of Isovue 3 00 IV contrast material. Coronal and sagittal reformats were performed. FINDINGS: LOWER CHEST: There are groundglass opacities scattered throughout the visualized lungs. ABDOMEN LIVER: Unremarkable GALLBLADDER AND BILE DUCTS: The gallbladder is surgically absent. PANCREAS: Unremarkable. SPLEEN: Small splenule is present. ADRENAL GLANDS: Unremarkable. KIDNEYS AND URETERS: No evidence of hydronephrosis or renal calculus. The ureters are unremarkable. PELVIS BLADDER: Unremarkable REPRODUCTIVE: Unremarkable. ABDOMEN & PELVIS STOMACH AND BOWEL: Appendix is dilated measuring up to 10 mm with adjacent fat stranding changes and enters into a right abdominal wall hernia. Organizing fluid collection or free air identified. No ernst dence of bowel obstruction. Surgical changes to the stomach. PERITONEUM: No evidence of pneumoperitoneum or free fluid. VASCULATURE: No evidence of aortic aneurysm. MUSCULOSKELETAL: No acute osseous abnormalities LYMPH NODES: No gross evidence for lymphadenopathy. SOFT TISSUE/ABDOMINAL WALL: Unremarkable IMPRESSION: 1. Acute uncomplicated appendicitis. The appendix distal tip enters into the right abdominal wall de fect in the right lower quadrant. 2. Surgical changes of the stomach.
[2021-11-07] MEDS ORDERED: SODIUM CHLORIDE 0.9% 1,000 ML IV ONE (18:20)
[2021-11-07] MEDS ORDERED: ONDANSETRON 4 MG/2 ML VIAL IVP PRN (18:48)
[2021-11-07] MEDS ORDERED: NALOXONE 0.4 MG/ML 1 ML VIAL IV PRN (18:48)
--- NOTE | 2021-11-07 18:48 | ED ---
Abdominal Pain HPI - General Chief Complaint: Abdominal Pain Stated Complaint: abd pain Time Seen by Provider: 11/07/21 15:59 Source: EMS Mode of arrival: EMS Limitations: no limitations - History of Present Illness Initial Comments: Patient is a 41-year-old female past history of lap band, Damaris-en-Y in 2013 who presents to the emergency department with reported abdominal pain. States that she has had nausea, vomiting and abdominal pain for the past 3 days. States that the pain is generalized. She has not been able to hold down any food. States that her pain is worse than when she had a previous bowel obstruction. Admits that she has had fevers however these were near 14 days ago. She tested positive for covid at that time. Reports that her symptoms improve however got worse again. She has not had a bowel movement in 3 days and is not passing any gas. She has been taking Dulcolax, MiraLAX and drinking apple juice without having a successful bowel movement. Admits to nausea with vomiting. Tried to take Zofran at home without improvement. No other alleviating, precipitating or modifying factors - Related Data Home Medications Medication Instructions Recorded Confirmed Loratadine-Pseudoeph 10-240 mg 1 tab PO DAILY 07/27/20 12/21/20 [Claritin-D 24 Hour] Multivitamins, Thera [Multivitamin 2 tab PO BID 07/27/20 12/21/20 (formulary)] Omeprazole 40 mg PO DAILY 08/23/20 12/21/20 Sucralfate [Carafate] 1 gm PO BID 08/23/20 12/21/20 Escitalopram [Lexapro] 10 mg PO DAILY 12/21/20 12/21/20 Levothyroxine Sodium 50 mcg PO DAILY 12/21/20 12/21/20 Previous Rx's Medication Instructions Recorded Ergocalciferol [Vitamin D2 50,000 unit PO Q7D #12 cap 07/27/20 (DRISDOL)] Ergocalciferol [Vitamin D2 (1250 1,250 mcg PO WEEKLY #30 cap 12/21/20 Mcg = 29014 Iu)] Allergies Allergy/AdvReac Type Severity Reaction Status Date / Time adhesive tape Allergy Rash/Hives Verified 11/07/21 15:30 antibiotics AdvReac Rash/Hives Uncoded 11/07/21 15:30 Review of Systems ROS Statement: Those systems with pertinent positive or pertinent negative responses have been documented in the HPI. ROS Other: All systems not noted in ROS Statement are negative. Past Medical History Additional Past Medical History / Comment(s): ABD PAIN, VOMITING, hx of kidney stones, gave august 2019 (expecting a baby girl around October 14, 2019) History of Any Multi-Drug Resistant Organisms: None Reported Past Surgical History: Bariatric Surgery, Section, Cholecystectomy, Tubal Ligation Additional Past Surgical History / Comment(s): lap band 2010 lap band removed and gastric bypass 2013, c section x 3 reversal of tubal ligation 2016, conceived in January 2019 led to hyperemesis state\bedrest for first trimester Past Anesthesia/Blood Transfusion Reactions: No Reported Reaction Past Psychological History: No Psychological Hx Reported Smoking Status: Never smoker Past Alcohol Use History: None Reported Past Drug Use History: None Reported General Exam Limitations: no limitations Course Vital Signs 11/07/21 11/07/21 11/07/21 15:23 17:20 18:38 Temperature 97.1 F L Pulse Rate 86 93 96 Respiratory 20 20 18 Rate Blood Pressure 148/97 144/89 127/93 O2 Sat by Pulse 100 99 99 Oximetry Medical Decision Making - Medical Decision Making Upon arrival patient was placed into room 19. A thorough history and physical exam is performed. IV was established the patient was given a liter bolus of normal saline followed by 130 mL/h. Laboratory studies are conducted and reviewed. She is provided with 0.5 mg of Dilaudid and [address] of the abdomen and pelvis is obtained which demonstrates acute appendicitis. Appendix resides inside of the patient's right abdominal wall hernia. I did call and speak with Dr. Fritz. He does recommend that I call and speak with Dr. Cowan has patient is requesting Dr. Cowan as her surgeon. She is started on Zosyn. Patient will be made nothing by mouth. She remained in stable condition awaiting a bed on the floor - Lab Data Result diagrams: 11/07/21 16:22 11/07/21 16:22 Lab Results 11/07/21 11/07/21 11/07/21 Range/Units 16:22 16:22 16:22 WBC 5.6 (3.8-10.6) k/uL RBC 4.20 (3.80-5.40) m/uL Hgb 11.8 (11.4-16.0) gm/dL Hct 36.1 (34.0-46.0) % MCV 86.0 (80.0-100.0) fL MCH 28.1 (25.0-35.0) pg MCHC 32.7 (31.0-37.0) g/dL RDW 13.6 (11.5-15.5) % Plt Count 430 (150-450) k/uL MPV 6.7 Neutrophils % 71 % Lymphocytes % 17 % Monocytes % 6 % Eosinophils % 3 % Basophils % 0 % Neutrophils # 4.0 (1.3-7.7) k/uL Lymphocytes # 0.9 L (1.0-4.8) k/uL Monocytes # 0.3 (0-1.0) k/uL Eosinophils # 0.2 (0-0.7) k/uL Basophils # 0.0 (0-0.2) k/uL Sodium 139 (137-145) mmol/L Potassium 3.7 (3.5-5.1) mmol/L Chloride 106 (98-107) mmol/L Carbon Dioxide 22 (22-30) mmol/L Anion Gap 11 mmol/L BUN 9 (7-17) mg/dL Creatinine 0.62 (0.52-1.04) mg/dL Est GFR (CKD-EPI)AfAm >90 (>60 ml/min/1.73 sqM) Est GFR (CKD-EPI)NonAf >90 (>60 ml/min/1.73 sqM) Glucose 103 H (74-99) mg/dL Plasma Lactic Acid Mk 1.0 (0.7-2.0) mmol/L Calcium 9.1 (8.4-10.2) mg/dL Total Bilirubin 0.4 (0.2-1.3) mg/dL AST 20 (14-36) U/L ALT 15 (4-34) U/L Alkaline Phosphatase 85 (38-126) U/L Total Protein 6.9 (6.3-8.2) g/dL Albumin 3.8 (3.5-5.0) g/dL Lipase 101 (23-300) U/L Disposition Clinical Impression: Abdominal pain, Appendicitis, acute Disposition: ADMITTED IP TO THIS HOSP Condition: Stable Is patient prescribed a controlled substance at d/c from ED?: No Referrals: Sedrick Garcia DO [Primary Care Provider] - 1-2 days Decision to Admit Reason: Admit from EC Decision Date: 11/07/21 Decision Time: 18:48
[2021-11-07] MEDS: PIPERACILLIN-TAZOBACTAM 3.375 GM in SODIUM CHLORIDE 0.9% 100 ML IVPB SCH (19:54)
[2021-11-07] MEDS: SODIUM CHLORIDE 0.9% 1,000 ML IV SCH (19:54)
[2021-11-07] MEDS: HYDROmorphone 1 MG/ML 1 ML SYRINGE IVP PRN (20:30)
[2021-11-07 22:27] LABS: Appearance,Urine Clear (Clear); Bilirubin,Urine Negative (Negative); Blood,Urine Trace (Negative); Color,Urine Yellow; Glucose,Urine (UA) Negative (Negative); Ketones,Urine 1+ (Negative); Leukocyte Esterase,Urine Negative (Negative); Nitrite,Urine Negative (Negative); PH, Urine 6.5 (5.0-8.0); Protein,Urine Trace (Negative); RBC,Urine 3 /hpf (0-5); Squamous Epithelial Cell,Urine 2 /hpf (0-4); Urobilinogen,Urine <2.0 mg/dL (<2.0); WBC,Urine 1 /hpf (0-5)
[2021-11-07 22:31] LABS: Specific Gravity,Urine >1.050 (1.001-1.035)
[2021-11-08] MEDS: HYDROmorphone 1 MG/ML 1 ML SYRINGE IVP PRN ×3 (00:07→07:52)
[2021-11-08] MEDS: SODIUM CHLORIDE 0.9% 1,000 ML IV SCH ×3 (02:27→23:23)
[2021-11-08] MEDS: PIPERACILLIN-TAZOBACTAM 3.375 GM in SODIUM CHLORIDE 0.9% 100 ML IVPB SCH ×2 (02:29→14:00)
[2021-11-08] MEDS ORDERED: GABAPENTIN 300 MG CAP PO PRN (02:49)
[2021-11-08] MEDS ORDERED: SCOPOLAMINE 1.5MG/72HR PATCH TRANSDERM SCH (03:00)
[2021-11-08] MEDS: ENOXAPARIN 30 MG/0.3 ML SYRINGE SQ SCH (04:10)
[2021-11-08] MEDS: ACETAMINOPHEN IV (For NPO) 1,000 MG in EMPTY BAG 1 BAG IVPB SCH ×3 (07:50→23:16)
[2021-11-08] MEDS: PANTOPRAZOLE 40 MG/10 ML VIAL IVP SCH (07:51)
[2021-11-08 09:38] LABS: Basophils # (A) 0.03 X 10*3/uL (0.00-0.10); Basophils % (A) 0.6 %; Eosinophils # (A) 0.22 X 10*3/uL (0.04-0.35); Eosinophils % (A) 4.2 %; HCT 34.5 % (37.2-46.3); HGB 10.1 g/dL (12.0-15.0); Lymphocytes # (A) 1.08 X 10*3/uL (0.90-5.00); Lymphocytes % (A) 20.7 %; MCH 26.2 pg (27.0-32.0); MCHC 29.3 g/dL (32.0-37.0); MCV 89.6 fL (80.0-97.0); Mean Platelet Volume 9.3 fL (9.5-12.2); Monocytes % (A) 9.6 %; Neutrophils # (A) 3.35 X 10*3/uL (1.80-7.70); Neutrophils % (A) 64.3 %; Platelet Count 347 X 10*3/uL (140-440); RBC 3.85 X 10*6/uL (4.10-5.20); RDW 13.4 % (11.5-14.5); WBC 5.21 X 10*3/uL (4.50-10.00)
[2021-11-08] MEDS ORDERED: SODIUM CHLORIDE 0.9% 2,000 ML IV ONE (10:00)
--- NOTE | 2021-11-08 10:55 | P.GSHP ---
History of Present Illness H&P Date: 11/08/21 CHIEF COMPLAINT: Abdominal pain HISTORY OF PRESENT ILLNESS: Rosy Quintana is a 41-year-old female who presents with 4 day history of moderate to severe left upper quadrant abdominal pain. She has history of gastric bypass in 2014. She is 6 years out. She reports recent COVID last month. She reports moderate weight regain following the of her father August 2021, 2 months ago. No reports of blood in stools. Due to severe abdominal pain, she presented to the emergency room. Additional diagnostic studies demonstrated appendicitis, hence admission. PAST MEDICAL HISTORY: 1. Morbid obesity due to excess calories 2. Body mass index of 66.9, initial 3. Kidney stones. 4. Hypothyroidism 5. History of gastric ulcers 6. MHTFR gene PAST SURGICAL HISTORY: 1. Adjustable gastric band to gastric bypass 2. 3. Tubal ligation 4. Cholecystectomy 5. Upper endoscopy HOME MEDICATIONS: Reviewed. ALLERGIES: Reviewed SOCIAL HISTORY: No active tobacco use. FAMILY HISTORY: No family history of ulcerative colitis disease or Crohn's disease. Family history of morbid obesity. No lupus in the family. No reports of stomach or esophageal cancer. Family history of diabetes type 2. REVIEW OF ORGAN SYSTEMS: CONSTITUTIONAL: At height of 5 feet 6.5 inches, ideal body weight is 154 pounds. Lowest weight of 156 pounds. Her highest body mass index was 66.9. Present BMI 30.5. Total lifetime weight loss 229 pounds. Percent excess weight loss 86%. She is 3 pounds overweight. HEENT: Denies any active troubles with vision or hearing. No troubles with swallowing. ENDOCRINE: No diabetes. No hypothyroidism. CARDIOVASCULAR: No reports of palpitations or heart attacks or chest pain. RESPIRATORY: No active daytime somnolence. No asthma. GI: Has blood per rectum. No diarrhea or constipation. MUSCULOSKELETAL: Has lower back pain and joint pain. Has osteoarthritis of the knees. NEURO: No headaches. No seizure disorders. PSYCH: No depression or suicidal ideation. RHEUMATOLOGIC: No lupus. No rheumatoid arthritis. HEMATOLOGIC: Denies any abnormal bleeding or bruising. No personal history of DVTs. SKIN: No rash. No skin cancer. PHYSICAL EXAM: VITAL SIGNS: Height 5 foot 6.5 inches, weight 239 pounds. BMI 38.8 GENERAL: Well-developed in no acute distress. HEENT: No scleral icterus. Extraocular movements grossly intact. Hears conversational speech. No nasal drainage. NECK: Supple without lymphadenopathy. CHEST: Nonlabored respirations with equal bilateral excursions. CARDIOVASCULAR: Regular rate and regular rhythm. Distal 2+ pulses. ABDOMEN: Obese, soft, nondistended. MUSCULOSKELETAL: No clubbing, cyanosis. NEURO: No focal or lateralizing signs. Cranial nerves 2 through 12 grossly within normal limits. PSYCH: Appropriate affect. Alert and oriented to person, place and time. SKIN: Good skin turgor. Well perfused. LABS: Reviewed. WBC 5.6. COVID negative. STUDIES: CT of the abdomen and pelvis reviewed with appendix incarcerated in right lower quadrant ventral/inguinal hernia. No mesenteric swirl or internal hernia. This is my independent interpretation RADIOLOGY: CT of the abdomen and pelvis report demonstrates inflammatory changes along the right lower quadrant appendix with abdominal wall hernia. ASSESSMENT: 1. Acute appendicitis with right lower quadrant ventral hernia 2. Left upper quadrant abdominal pain 3. Kidney stones 4. Hypothyroidism 5. Gastrointestinal bleed 6. History of gastrojejunal ulcer and stricture 7. Fatigue secondary to iron deficiency anemia 8. Secondary hyperparathyroidism 9. Vitamin D deficiency 10. Severe iron deficiency anemia 11. History of gastric bypass 12. Vitamin A deficiency 13. Zinc deficiency 14. Weight gain following bariatric surgery 15. Morbid obesity due to excess caloried 16. Body mass index of 66.9 to 38.8 PLAN: 1. Admission described. She has moderate to severe left upper quadrant abdominal pain with appendicitis. Robotic appendectomy and right ventral hernia repair described for which she is elevated risk with gastric bypass surgery. 2. She comes in with moderate weight re-gain. TSH ordered. 3. Scheduled IV antibiotics for appendicitis. Past Medical History Past Medical History: Asthma, GERD/Reflux, Pneumonia Additional Past Medical History / Comment(s): hx of kidney stones. stomach ulcer, covid positive 10/25/2021 History of Any Multi-Drug Resistant Organisms: None Reported Past Surgical History: Bariatric Surgery, Section, Cholecystectomy, Tubal Ligation Additional Past Surgical History / Comment(s): lap band 2009 lap band removed and gastric bypass 2014, c section x 3 /2018 reversal of tubal ligation 2017, conceived in January 2019 led to hyperemesis state\bedrest for first trimester Past Anesthesia/Blood Transfusion Reactions: No Reported Reaction Past Psychological History: Depression Smoking Status: Never smoker Past Alcohol Use History: None Reported Past Drug Use History: None Reported - Past Family History Mother Family Medical History: Thyroid Disorder Father Additional Family Medical History / Comment(s): FTD,menieres disease. 08/29/2021 Medications and Allergies Home Medications Medication Instructions Recorded Confirmed Type Omeprazole 40 mg PO HS 08/23/20 11/07/21 History Budesonide [Pulmicort Flexhaler] 1 puff INHALATION RT-BID PRN 11/07/21 11/07/21 History Ergocalciferol [Vitamin D2 (1250 1,250 mcg PO WATSON 11/07/21 11/07/21 History Mcg = 38031 Iu)] Escitalopram [Lexapro] 20 mg PO HS 11/07/21 11/07/21 History Levothyroxine Sodium [Synthroid] 88 mcg PO DAILY 11/07/21 11/07/21 History Loratadine [Claritin] 10 mg PO HS 11/07/21 11/07/21 History buPROPion XL [Wellbutrin XL] 150 mg PO HS 11/07/21 11/07/21 History Allergies Allergy/AdvReac Type Severity Reaction Status Date / Time adhesive tape Allergy Rash/Hives Verified 11/07/21 15:30 antibiotics AdvReac thrush Uncoded 11/07/21 19:49 Surgical - Exam Vital Signs Temp Pulse Resp BP Pulse Ox 97.1 F L 86 20 148/97 100 11/07/21 15:23 11/07/21 15:23 11/07/21 15:23 11/07/21 15:23 11/07/21 15:23 Results - Labs 11/08/21 05:47 11/07/21 16:22 Abnormal Lab Results - Last 24 Hours (Table) 11/07/21 11/07/21 11/07/21 Range/Units 16:22 16:22 22:00 RBC (4.10-5.20) X 10*6/uL Hgb (12.0-15.0) g/dL Hct (37.2-46.3) % MCH (27.0-32.0) pg MCHC (32.0-37.0) g/dL MPV (9.5-12.2) fL Lymphocytes # 0.9 L (1.0-4.8) k/uL Glucose 103 H (74-99) mg/dL Ur Specific Pingree >1.050 H (1.001-1.035) Urine Protein Trace H (Negative) Urine Ketones 1+ H (Negative) Urine Blood Trace H (Negative) 11/08/21 Range/Units 05:47 RBC 3.85 L (4.10-5.20) X 10*6/uL Hgb 10.1 L (12.0-15.0) g/dL Hct 34.5 L (37.2-46.3) % MCH 26.2 L (27.0-32.0) pg MCHC 29.3 L (32.0-37.0) g/dL MPV 9.3 L (9.5-12.2) fL Lymphocytes # (1.0-4.8) k/uL Glucose (74-99) mg/dL Ur Specific Pingree (1.001-1.035) Urine Protein (Negative) Urine Ketones (Negative) Urine Blood (Negative) Diabetes panel 11/07/21 Range/Units 16:22 Sodium 139 (137-145) mmol/L Potassium 3.7 (3.5-5.1) mmol/L Chloride 106 (98-107) mmol/L Carbon Dioxide 22 (22-30) mmol/L BUN 9 (7-17) mg/dL Creatinine 0.62 (0.52-1.04) mg/dL Glucose 103 H (74-99) mg/dL Calcium 9.1 (8.4-10.2) mg/dL AST 20 (14-36) U/L ALT 15 (4-34) U/L Alkaline Phosphatase 85 (38-126) U/L Total Protein 6.9 (6.3-8.2) g/dL Albumin 3.8 (3.5-5.0) g/dL Calcium panel 11/07/21 Range/Units 16:22 Calcium 9.1 (8.4-10.2) mg/dL Albumin 3.8 (3.5-5.0) g/dL Pituitary panel 11/07/21 Range/Units 16:22 Sodium 139 (137-145) mmol/L Potassium 3.7 (3.5-5.1) mmol/L Chloride 106 (98-107) mmol/L Carbon Dioxide 22 (22-30) mmol/L BUN 9 (7-17) mg/dL Creatinine 0.62 (0.52-1.04) mg/dL Glucose 103 H (74-99) mg/dL Calcium 9.1 (8.4-10.2) mg/dL Adrenal panel 11/07/21 Range/Units 16:22 Sodium 139 (137-145) mmol/L Potassium 3.7 (3.5-5.1) mmol/L Chloride 106 (98-107) mmol/L Carbon Dioxide 22 (22-30) mmol/L BUN 9 (7-17) mg/dL Creatinine 0.62 (0.52-1.04) mg/dL Glucose 103 H (74-99) mg/dL Calcium 9.1 (8.4-10.2) mg/dL Total Bilirubin 0.4 (0.2-1.3) mg/dL AST 20 (14-36) U/L ALT 15 (4-34) U/L Alkaline Phosphatase 85 (38-126) U/L Total Protein 6.9 (6.3-8.2) g/dL Albumin 3.8 (3.5-5.0) g/dL Assessment and Plan (1) Ventral hernia Current Visit: Yes Status: Acute Code(s): K43.9 - VENTRAL HERNIA WITHOUT OBSTRUCTION OR GANGRENE SNOMED Code(s): 968309534 (2) Ventral hernia with obstruction Current Visit: Yes Status: Acute Code(s): K43.6 - OTHER AND UNSP VENTRAL HERNIA WITH OBSTRUCTION, W/O GANGRENE SNOMED Code(s): 223849531 (3) Left upper quadrant abdominal pain Current Visit: Yes Status: Acute Code(s): R10.12 - LEFT UPPER QUADRANT PAIN SNOMED Code(s): 419086571 (4) Gastric bypass status for obesity Current Visit: Yes Status: Acute Code(s): Z98.84 - BARIATRIC SURGERY STATUS SNOMED Code(s): 424089489 (5) Hypothyroidism Current Visit: Yes Status: Acute Code(s): E03.9 - HYPOTHYROIDISM, UNSPECIFIED SNOMED Code(s): 33278339 (6) Morbid obesity due to excess calories Current Visit: Yes Status: Acute Code(s): E66.01 - MORBID (SEVERE) OBESITY DUE TO EXCESS CALORIES SNOMED Code(s): 390049739 (7) Adult BMI 39.0-39.9 kg/sq m Current Visit: Yes Status: Acute Code(s): Z68.39 - BODY MASS INDEX [BMI] 39.0-39.9, ADULT SNOMED Code(s): 801437653 (8) Appendicitis, acute Current Visit: Yes Status: Acute Code(s): K35.80 - UNSPECIFIED ACUTE APPENDICITIS SNOMED Code(s): 14006240
[2021-11-08 11:17] LABS: African American GFR (CKD) 127.5 (60.0-200.0); Anion Gap 11.3 mmol/L (10.00-18.00); BUN/Creat Ratio 11.04 Ratio (12.00-20.00); Blood Urea Nitrogen 7.6 mg/dL (9.0-27.0); Calcium 8.5 mg/dL (8.7-10.3); Carbon Dioxide 21.8 mmol/L (20.0-27.5)
[2021-11-08] MEDS ORDERED: IV FLUID CONTINUATION 1,000 ML IV ONE (15:39)
[2021-11-08] MEDS: ONDANSETRON 4 MG/2 ML VIAL IVP STA (16:00)
[2021-11-08] MEDS ORDERED: DEXAMETHASONE SOD PHOSPHATE 4 MG/ML 1 ML VIAL IV ONE (16:00)
[2021-11-08] MEDS ORDERED: ROCURONIUM 10 MG/ML (5 ML VIAL) IV ONE (18:16)
[2021-11-08] MEDS ORDERED: .fentaNYL (PF) 50 MCG/ML 2 ML AMP ONE (18:16)
[2021-11-08] MEDS ORDERED: MIDAZOLAM 2 MG/2 ML VIAL ONE (18:16)
[2021-11-08] MEDS ORDERED: HYDROmorphone (PF) 1 MG/ML ONE (18:16)
[2021-11-08] MEDS ORDERED: NEOSTIGMINE 1 MG/ML 10 ML VIAL ONE (18:16)
[2021-11-08] MEDS ORDERED: SUCCINYLCHOLINE CHLORIDE 100 MG/5 ML SYR IV ONE (18:16)
[2021-11-08] MEDS ORDERED: GLYCOPYRROLATE 0.2 MG/ML 2 ML VIAL ONE (18:16)
[2021-11-08] MEDS ORDERED: LIDOCAINE 1% INJ 10MG/ML (20 ML MDV) ONE (18:16)
[2021-11-08] MEDS ORDERED: PROPOFOL 10 MG/ML 20 ML VIAL IV ONE (18:16)
[2021-11-08] MEDS ORDERED: SODIUM CHLORIDE 0.9% 100 ML with ceFAZolin 2,000 MG IV ONE ×2 (18:21)
[2021-11-08] MEDS ORDERED: LACTATED RINGERS 1,000 ML IV ONE (18:45)
[2021-11-08] MEDS ORDERED: LIDOCAINE 1%-EPI 1:100,000 20 ML VIAL SQ ONE (18:45)
[2021-11-08] MEDS ORDERED: FLUTICASONE 110 MCG INHALER INHALATION PRN (20:14)
[2021-11-08 20:20] VITALS: RESP 16
--- NOTE | 2021-11-08 20:30 | P.OP ---
Date of Procedure: 11/08/21 Description of Procedure: SURGEON: DENNY DILLARD MD PREOPERATIVE DIAGNOSES: 1. Acute appendicitis 2. Right lower quadrant ventral hernia with incarceration 3. Left upper quadrant abdominal pain, moderate severe 4. History of gastric bypass 5. Morbid obesity due to excess calories, BMI 39.3 6. Depressive disorder 7. Asthma 8. Hypothyroidism POSTOPERATIVE DIAGNOSES: 1. Incarcerated right lower quadrant ventral incisional hernia 2 involving acute appendicitis 2. Severe peritoneal adhesions 3. Left upper quadrant abdominal pain, moderate severe 4. History of gastric bypass 5. Morbid obesity due to excess calories, BMI 39.3 6. Depressive disorder 7. Asthma 8. Hypothyroidism OPERATION: 1. Robotic-assisted da Brittnee Xi laparoscopic lysis of adhesions over 30 minutes 2. Robotic-assisted da Brittnee Xi laparoscopic reduction of initial incarcerated incisional right lower quadrant ventral hernia 2, 5 x 4 cm and 1 x 2 cm without mesh 3. Robotic-assisted da Brittnee Xi laparoscopic appendectomy ANESTHESIA: General with local anesthetic ESTIMATED BLOOD LOSS: 5 mL. SPECIMENS: 1. Incarcerated appendix COMPLICATIONS: None. FINDINGS: 1. Incarcerated right lower quadrant incisional hernia involving omentum 5 x 4 cm. 2. Incarcerated right lower quadrant incisional hernia involving the appendix with obstruction 1 x 2 cm 3. No hernias along the left groin a left lower abdomen. 4. Chronic appendicitis with dilated tip and proximal body 5. Pelvic adhesions identified and lysed. 6. Epigastric and left upper quadrant adhesions involving the Damaris limb similarly lysed using scissors. 7. Day's defect and jejunojejunostomy defect obliterated. 8. Mesh placement avoided due to acute appendicitis and risk for mesh infection. INDICATIONS: The patient is a 41-year-old female that presented acutely to the emergency room complaining of left upper quadrant abdominal pain. Computed tomography scan demonstrated appendicitis and incarcerated and incisional hernia of the right lower quadrant. Surgical intervention was described with appendectomy including reduction and repair of ventral hernia. Benefits and risks of the procedure however not limited to bleeding, infection, need for further surgery and persistent pain were reviewed. Shared medical decision m aking was completed with the patient and informed consent was obtained. DESCRIPTION: In the preoperative area, areas of pain were marked with indelible marker at the epigastric and left upper abdomen. The patient was brought to the operating room and initially laid in supine position. The abdomen had been prepped and draped in standard sterile fashion. Ioban draping was also placed. Prior to incision, a timeout protocol was confirmed with surgical team regarding patient's name including procedures to be performed and location along the right groin. Initial positioning for the robotic assisted ports were selected whereby 20 cm superior to the target anatomy, 0 degree 5 mm laparoscopic trocar entry was performed at the left upper quadrant. The abdomen was insufflated to 15 mmHg which he had tolerated well. Diagnostic laparoscopy demonstrated no injury to bowel, viscera or mesentery. Adhesions along the epigastrium including left upper quadrant was found at the small bowel to abdominal wall consistent with her pain. Separately incarcerated omentum of the right lower quadrant was found from prior Pfannenstiel incision. The tip of the appendix was incarcerated along the right lower quadrant incisional hernia separately. Next, along the epigastrium, 8 mm robot trocar was placed. Two 8-mm robotic trocar was placed under direct visualization at the right upper quadrant. An 12 mm port was placed at the left upper quadrant after exchanging the 5 mm trocar. Total of 4 trochars were used. All trocars were positioned between 10-cm apart from each other. The [employer] Mix[employer] XI robot was primed, draped, prepared for docking along upper abdomen of the patient. The patient was positioned 14 steep Trendelenburg position. I then went to the [employer] console. The pastrycook's assistant was at bedside for exchange of the robot arms and equipment. Initial attention was brought to the moderate lysis adhesions of the pelvis involving omentum to the abdominal wall. Greater omentum was incarcerated in a right lower quadrant incisional hernia from previous Pfannenstiel incision. Lysis of adhesions using vessel sealer was performed. The defect was 5 x 4 cm o f the right lower abdomen. The appendix was separately incarcerated in a 1 x 2 cm incisional hernia of the right lower abdomen. An appendectomy portion of the procedure was performed where the mesentery was mobilized using vessel sealer. Dilated veins were found including dilated tip of the appendix consistent with chronic appendicitis. After mobilizing the mesoappendix, a blue 45 mm robotic s taple load was fired across the base of the appendix. Next attention was brought to the incisional hernia repair portion of the procedure Hernias of the right lower abdomen were completely reduced in the peritoneum was clean. Using a #1 VLOC nonabsorbable suture, the fascia of the incisional hernia defect 5 x 4 cm was oversewn 2 using fascial lubrication. Of the separate defect of the incarcerated appendix site 1 x 2 cm was also similarly oversewn using #1 VLOC nonabsorbable. Mesh was avoided due to the acute appendicitis and risk for mesh infection. The small bowel was investigated from the base of the cecum proximally to the jejunojejunostomy for assessment of internal hernias. The robot was temporally undocked and repositioned to the upper abdomen. Adhesions along the epigastrium including left lower quadrant were sharply lysed using scissors with Bovie cautery. The Damaris limb from the gastrojejunostomy distally was investigated using bowel graspers. Day defect was obliterated. The jejunojejunostomy defect was obliterated. No internal hernias were identified. This concluded the procedure. The robot was undocked from the patient's bedside. I then rescrubbed into the case. Insufflation was released from the abdominal cavity and all instruments were removed from the abdominal cavity. The rest of incisions were reapproximated using 4-0 Monocryl in a running subcuticular fashion. Local anesthetic was placed along the incision including for a bilateral groin block. Incisions were cleansed using dilute hydrogen peroxide. Liquid glue was applied to the skin. At the end of the procedure, the needle, sponge and instrument counts had been verified correct by the surgical physician assistant. The patient had tolerated the procedure well and was taken to the postanesthesia care unit in stable condition.
[2021-11-08] MEDS ORDERED: HYDROmorphone 0.5 MG/0.5 ML SYRINGE IVP ONE (20:35)
[2021-11-08] MEDS: KETOROLAC 30 MG/ML 1 ML VIAL IVP SCH (20:48)
[2021-11-08] MEDS ORDERED: LORATADINE 10 MG TAB PO SCH (21:00)
[2021-11-08] MEDS ORDERED: buPROPion XL 150 MG TAB.ER.24H PO SCH (21:00)
[2021-11-09] MEDS: HYDROmorphone 1 MG/ML 1 ML SYRINGE IVP PRN ×3 (00:07→08:57)
[2021-11-09] MEDS: PIPERACILLIN-TAZOBACTAM 3.375 GM in SODIUM CHLORIDE 0.9% 100 ML IVPB SCH (00:15)
[2021-11-09] MEDS: ACETAMINOPHEN IV (For NPO) 1,000 MG in EMPTY BAG 1 BAG IVPB SCH (00:40)
[2021-11-09] MEDS: ENOXAPARIN 30 MG/0.3 ML SYRINGE SQ SCH (02:11)
[2021-11-09] MEDS: SODIUM CHLORIDE 0.9% 1,000 ML IV SCH ×2 (02:11→11:16)
[2021-11-09] MEDS: KETOROLAC 30 MG/ML 1 ML VIAL IVP SCH ×2 (05:46→11:51)
[2021-11-09] MEDS ORDERED: ACETAMINOPHEN IV (For NPO) 1,000 MG in EMPTY BAG 1 BAG IVPB SCH (06:00)
[2021-11-09] MEDS ORDERED: LEVOTHYROXINE 88 MCG TAB PO SCH (06:30)
[2021-11-09 07:49] VITALS: BP 125/78; PULSE 76; TEMP 97.9
[2021-11-09] MEDS ORDERED: PIPERACILLIN-TAZOBACTAM 3.375 GM in SODIUM CHLORIDE 0.9% 100 ML IVPB SCH (08:00)
[2021-11-09] MEDS: PANTOPRAZOLE 40 MG/10 ML VIAL IVP SCH (08:47)
--- NOTE | 2021-11-09 13:48 | P.DS ---
Providers Date of admission: 11/08/21 20:15 Expected date of discharge: 11/09/21 Attending physician: Dotty Grant Primary care physician: Sedrick Garcia [facility] Hospital Course: Discharge diagnosis 1. Incarcerated right lower quadrant ventral incisional hernia 2 involving acute appendicitis status post Robotic-assisted da Brittnee Xi laparoscopic lysis of adhesions, Robotic-assisted da Brittnee Xi laparoscopic reduction of initial incarcerated incisional right lower quadrant ventral hernia 2, 5 x 4 cm and 1 x 2 cm without mesh and Robotic-assisted da Brittnee Xi laparoscopic appendectomy 2. Severe peritoneal adhesions 3. Left upper quadrant abdominal pain, moderate severe 4. History of gastric bypass 5. Morbid obesity due to excess calories, BMI 39.3 6. Depressive disorder 7. Asthma 8. Hypothyroidism Hospital course The patient is a 41-year-old female that presented acutely to the emergency room complaining of left upper quadrant abdominal pain. Computed tomography scan demonstrated appendicitis and incarcerated and incisional hernia of the right lower quadrant. Patient is status post Robotic-assisted da Brittnee Xi laparoscopic lysis of adhesions, Robotic-assisted da Brittnee Xi laparoscopic reduction of initial incarcerated incisional right lower quadrant ventral hernia 2, 5 x 4 cm and 1 x 2 cm without mesh and Robotic-assisted da Brittnee Xi laparoscopic appendectomy for incarcerated right lower quadrant ventral incisional hernia 2 involving acute appendicitis and severe peritoneal adhesions. Patient tolerated surgery well. Her pain is controlled. She has been up and ambulating. She is tolerating diet. She is afebrile. She is stable for discharge. 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 Signing provider agrees with the documented findings, assessment, and plan of care. Patient Condition at Discharge: Stable Plan - Discharge Summary Discharge Rx Participant: Yes New Discharge Prescriptions: New Simethicone [Gas-X] 125 mg PO AC-TID PRN #20 capsule PRN Reason: Pain Acetaminophen Tab [Tylenol Tab] 1,000 mg PO Q6HR PRN #30 tablet PRN Reason: Pain Continue Omeprazole 40 mg PO HS buPROPion XL [Wellbutrin XL] 150 mg PO HS Levothyroxine Sodium [Synthroid] 88 mcg PO DAILY Loratadine [Claritin] 10 mg PO HS Budesonide [Pulmicort Flexhaler] 1 puff INHALATION RT-BID PRN PRN Reason: Shortness Of Breath Escitalopram [Lexapro] 20 mg PO HS Ergocalciferol [Vitamin D2 (1250 Mcg = 30520 Iu)] 1,250 mcg PO WATSON Discharge Medication List Omeprazole 40 mg PO HS 08/23/20 [History] Budesonide [Pulmicort Flexhaler] 1 puff INHALATION RT-BID PRN 11/07/21 [History] Ergocalciferol [Vitamin D2 (1250 Mcg = 47307 Iu)] 1,250 mcg PO WATSON 11/07/21 [History] Escitalopram [Lexapro] 20 mg PO HS 11/07/21 [History] Levothyroxine Sodium [Synthroid] 88 mcg PO DAILY 11/07/21 [History] Loratadine [Claritin] 10 mg PO HS 11/07/21 [History] buPROPion XL [Wellbutrin XL] 150 mg PO HS 11/07/21 [History] Acetaminophen Tab [Tylenol Tab] 1,000 mg PO Q6HR PRN #30 tablet 11/08/21 [Rx] Simethicone [Gas-X] 125 mg PO AC-TID PRN #20 capsule 11/08/21 [Rx] Follow up Appointment(s)/Referral(s): Sedrick Garcia DO [Primary Care Provider] - 1-2 days [place], [place] [NON-STAFF] - 11/15/21 Patient Instructions/Handouts: Appendicitis (GEN), Lysis of Abdominal Adhesions (IP), Abdominal Binder (DC), Incisional Hernia (DC), Ventral Hernia Repair (DC), Laparoscopic Appendectomy (DC) Activity/Diet/Wound Care/Special Instructions: No lifting for 4 pounds in 4 weeks. Using antibacterial soap. No lifting over 4 pounds 2 weeks, Nov 22 May shower. No bathtub soaks for 2 weeks, Nov 22 Wear abdominal binder daily for comfort except for showering. Use ice along incisions for today to prevent swelling. Discharge Disposition: HOME SELF-CARE
== END 2021-11-09 14:40 | disposition home or self-care (01) | DRG 336 ==
LOC: EC 15:21 → 6NMEDSUR 18:49 → OBSVTOIN 11-08 20:15
PROVIDERS: ADMIT Surgery Plastic and Reconstructive Surgery; ATTEND Surgery Plastic and Reconstructive Surgery
PROC: 0DTJ4ZZ Resection of Appendix, Percutaneous Endoscopic Approach (ICD-10-PCS; principal; 2021-11-08 13:35)
PROC: 0WQF4ZZ Repair Abdominal Wall, Percutaneous Endoscopic Approach (ICD-10-PCS; principal; 2021-11-08 13:35)
PROC: 0DQV4ZZ Repair Mesentery, Percutaneous Endoscopic Approach (ICD-10-PCS; principal; 2021-11-08 13:35)
PROC: 0DNU4ZZ Release Omentum, Percutaneous Endoscopic Approach (ICD-10-PCS; principal; 2021-11-08 13:35)
PROC: 8E0W4CZ Robotic Assisted Procedure of Trunk Region, Percutaneous Endoscopic Approach (ICD-10-PCS; principal; 2021-11-08 13:35)
DX: K43.0 Incisional hernia with obstruction, without gangrene (principal); K35.80 Unspecified acute appendicitis; N25.81 Secondary hyperparathyroidism of renal origin; E66.01 Morbid (severe) obesity due to excess calories; Z20.822 Contact with and (suspected) exposure to COVID-19; N73.6 Female pelvic peritoneal adhesions (postinfective); K36 Other appendicitis; K45.8 Other specified abdominal hernia without obstruction or gangrene; Z68.39 Body mass index [BMI] 39.0-39.9, adult; K21.9 Gastro-esophageal reflux disease without esophagitis; D50.9 Iron deficiency anemia, unspecified; E55.9 Vitamin D deficiency, unspecified; E50.9 Vitamin A deficiency, unspecified; E60 Dietary zinc deficiency; F32.A Depression, unspecified; J45.909 Unspecified asthma, uncomplicated; E03.9 Hypothyroidism, unspecified; Z79.890 Hormone replacement therapy; Z79.51 Long term (current) use of inhaled steroids; Z79.899 Other long term (current) drug therapy; Z98.84 Bariatric surgery status; Z86.16 Personal history of COVID-19; Z87.01 Personal history of pneumonia (recurrent); Z87.442 Personal history of urinary calculi; Z90.49 Acquired absence of other specified parts of digestive tract; Z87.11 Personal history of peptic ulcer disease; Z98.891 History of uterine scar from previous surgery; Z98.51 Tubal ligation status; Z98.890 Other specified postprocedural states; Z88.1 Allergy status to other antibiotic agents; Z91.048 Other nonmedicinal substance allergy status; Z83.3 Family history of diabetes mellitus; Z83.49 Family history of other endocrine, nutritional and metabolic diseases; Z83.52 Family history of ear disorders
CPT/HCPCS: 36415; 74177; 80048; 80053; 81001; 81025; 83605; 83690; 84443; 85025; 87635; 88304; 96361; 96365; 96366; 96375; 96376; 99285

== ENCOUNTER → 2022-03-14 | Outpatient (CLI) | payer BC, OTHER ==
--- NOTE | 2022-03-14 09:58 | MR ---
EXAMINATION TYPE: MR knee LT wo con DATE OF EXAM: 03/14/2022 COMPARISON: None HISTORY: Left Knee Pain TECHNIQUE: Multiplanar, multisequence imaging of the left knee is performed without IV contrast. FINDINGS: There is some motion artifact on the exam MEDIAL MENISCUS: Anterior and posterior horns are intact without tear. LATERAL MENISCUS: Anterior and posterior horns are intact without tear. CRUCIATE LIGAMENTS: The anterior and posterior cruciate ligaments are intact and unremarkable. COLLATERAL LIGAMENTS: The medial collateral ligament and lateral collateral ligament complex are inta ct and unremarkable. EXTENSOR MECHANISM: Visualized quadriceps and patellar tendons are intact. EFFUSION: Joint effusion is present laterally along the femoral condyle POPLITEAL CYST: No popliteal/naranjo cyst. TRICOMPARTMENT SPACES: Joint space loss is greatest at the patellofemoral joint is tricompartmental m arginal spurring CARTILAGE: Grade IV chondromalacia present at the posterior patella, grade III chondromalacia in the medial compartment BONE MARROW SIGNAL: Some reactive marrow signal change suspected in the medial femoral condyle and pr oximal tibia OTHER: Varicosities present within the subcutaneous tissues. IMPRESSION: Osteoarthritis.
== END | disposition home or self-care (01) ==
LOC: RADMRIMAIN 08:07
PROVIDERS: ATTEND Orthopaedic Surgery
DX: M17.12 Unilateral primary osteoarthritis, left knee (principal)

== ENCOUNTER → 2022-04-25 | Outpatient (CLI) | payer BC, OTHER ==
[2022-04-25 16:46] LABS: Basophils # (A) 0.1 k/uL (0-0.2); Basophils % (A) 1 %; Eosinophils # (A) 0.2 k/uL (0-0.7); Eosinophils % (A) 3 %; HCT 37.8 % (34.0-46.0); HGB 11.3 gm/dL (11.4-16.0); Hypochromasia Moderate; Lymphocytes # (A) 1.6 k/uL (1.0-4.8); Lymphocytes % (A) 27 %; MCH 25.2 pg (25.0-35.0); MCHC 29.8 g/dL (31.0-37.0); MCV 84.4 fL (80.0-100.0); Mean Platelet Volume 7.8; Monocytes # (A) 0.4 k/uL (0-1.0); Monocytes % (A) 7 %; Neutrophils # (A) 3.7 k/uL (1.3-7.7); Neutrophils % (A) 60 %; Platelet Count 294 k/uL (150-450); RBC 4.48 m/uL (3.80-5.40); RDW 14.8 % (11.5-15.5); WBC 6.1 k/uL (3.8-10.6)
[2022-04-25 16:54] LABS: Potassium 4.2 mmol/L (3.5-5.1)
== END | disposition home or self-care (01) ==
LOC: LABPAT 16:30
PROVIDERS: ATTEND Orthopaedic Surgery
DX: Z01.812 Encounter for preprocedural laboratory examination (principal); M23.92 Unspecified internal derangement of left knee
CPT/HCPCS: 80051; 85025

== ENCOUNTER 2022-04-26 11:48 | Day surgery (SDC) | payer BC, OTHER ==
--- NOTE | 2022-04-25 14:35 | HP ---
HISTORY AND PHYSICAL DATE OF SURGERY: 04/26/2022 Rosy Quintana is a 41-year-old patient seen with progressive left knee pain. We discussed options for treatment. She elected to proceed with left knee arthroscopy. Consent was obtained. PAST MEDICAL HISTORY: Hypothyroidism, anxiety. PAST SURGICAL HISTORY: Tubal ligation, section, cholecystectomy, gastric bypass surgery. DAILY MEDICATIONS: Levothyroxine, Lexapro, Wellbutrin. ALLERGIES: NONE. SOCIAL HISTORY: She denies tobacco use. PHYSICAL EVALUATION OF THE LEFT KNEE: Range of motion is zero to 130. Mild effusion. Tenderness, medial joint line. Positive medial Mercy's. Ligaments stable. Hip rotation without pain. Distal neurovascular exam is intact. Radiographs of the knee revealed mild osteoarthritis. MRI of the knee revealed significant chondromalacia and intraarticular effusion. IMPRESSION: 1. Internal derangement of left knee with osteochondral tear. 2. Hypothyroidism. PLAN: Left knee arthroscopy with chondroplasty and debridement. MMODL / IJN: [id number] /
[~2022-04-26 11:48] MED LIST: DEXAMETHASONE SOD PHOSPHATE 4 MG/ML 1 ML VIAL IV ONE; LACTATED RINGERS 1,000 ML IV SCH; ONDANSETRON 4 MG/2 ML VIAL IVP ONE
[2022-04-26] MEDS ORDERED: SCOPOLAMINE 1 MG/72 HR PATCH TRANSDERM ONE (12:37)
[2022-04-26] MEDS ORDERED: KETAMINE 10 MG/ML 20 ML VIAL ONE (13:51)
[2022-04-26] MEDS ORDERED: PROPOFOL 10 MG/ML 20 ML VIAL IV ONE (13:51)
[2022-04-26] MEDS ORDERED: MIDAZOLAM 2 MG/2 ML VIAL ONE (13:51)
[2022-04-26] MEDS ORDERED: fentaNYL (PF) 50 MCG/ML 2 ML AMP ONE (13:51)
[2022-04-26] MEDS ORDERED: BUPIVACAINE (PF) 0.25% 30 ML VIAL SQ ONE ×2 (13:55→14:23)
--- NOTE | 2022-04-26 14:46 | P.OP ---
Date of Procedure: 04/26/22 Preoperative Diagnosis: Internal derangement left knee Postoperative Diagnosis: 1. Tear medial and lateral meniscus left knee 2. Grade 4 chondromalacia medial femoral condyle left knee 3. Grade 3/4 chondromalacia femoral sulcus left knee 4. Reactive synovitis medial, lateral and suprapatellar compartments left knee Procedure(s) Performed: 1. Arthroscopic partial medial and lateral meniscectomy left knee 2. Arthroscopic microfracture medial femoral condyle left knee 3. Arthroscopic partial synovectomy medial, lateral and suprapatellar compartments left knee 4. Arthroscopic chondroplasty femoral sulcus left knee Anesthesia: MAXINEA, local Surgeon: Jagjit Lockhart Estimated Blood Loss (ml): 9 Pathology: none sent Condition: stable Disposition: PACU Indications for Procedure: 41-year-old patient seen with progressive left knee pain. After treatment options were discussed, she elected to proceed with arthroscopy. Operative Findings: See description of procedure Description of Procedure: Patient was taken to the operative suite. Patient underwent a general anesthetic by the department of anesthesia. Patient was given preoperative antibiotics. The left lower extremity was placed in a well-padded arthroscopic leg law. The left leg was prepped and draped in the normal sterile orthopedic fashion. A lateral parapatellar and suprapatellar incision was made. Trochars were inserted. Arthroscopy was initiated. Suprapatellar pouch revealed diffuse thick reactive synovitis. The patellofemoral joint appeared to articulate congruently. There was grade 2 chondromalacia of the patella and grade 3/4 chondromalacia of the femoral sulcus. The scope was guided into the medial gutter. No loose bodies or plica were identified. The scope was then guided into the medial compartment. A medial parapatellar incision was made. Trocar inserted followed by probe. There was a radial tear posterior horn medial meniscus. There was a fairly large area of grade 4 chondromalacia weightbearing surface medial femoral condyle with large peripheral osteochondral flap tears present. There was thick reactive synovitis anteriorly. I performed a partial medial meniscectomy getting down to stable meniscal tissue. I performed a chondroplasty of the femoral condyle getting down to stable osteochondral tissue. I performed a partial synovectomy decompressing the reactive synovitis. The residual meniscus was stable. The residual osteochondral surface appeared stable. There was good decompression of synovitis. The area of grade 4 chondromalacia medial femoral condyle measuring approximately 2.5 cm x 2 cm. I now introduced a microfracture awl. I performed a microfracture to the medial femoral condyle penetrating the bone and 4 separate locations with resultant bleeding at the microfracture sites. Scope and probe were then guided into the intercondylar notch. Cruciates were identified, probed and found to be stable. The scope and probe were then guided into lateral compartment. Lateral meniscus revealed a small tear in the anterior horn. The posterior horn and midbody were stable. There was mild grade 1 chondromalacia of the lateral compartment. There was thick reactive synovitis anteriorly. I performed a partial lateral meniscectomy. I performed a partial synovectomy. The residual meniscus was stable. There was good decompression of synovitis. The scope was in guided back into the suprapatellar compartment. I introduced a motorized shaver into the super patellar compartment. I debrided some piecemeal fragments of meniscus that I encountered. I performed a chondroplasty of the femoral sulcus getting down to stable osteochondral tissue. I performed a partial synovectomy. The residual osteochondral surface the femoral condyle appeared stable. I did note a central area of grade 4 chondromalacia. There was good decompression of synovitis. I took one more look around the entire knee, no residual debris. Instruments were now removed from the joint. The joint was infiltrated with .25% Marcaine. Steri-Strips were applied to the portal sites. Sterile dressings were applied. The patient was placed into a RANDI hose. No tourniquet was utilized. The pat ient was awakened, transferred to a bed and taken to recovery stable satisfactory condition.
[2022-04-26 14:48] VITALS: TEMP 96.8
[2022-04-26] MEDS: HYDROmorphone 0.5 MG/0.5 ML SYRINGE IVP PRN ×2 (15:03→15:11)
[2022-04-26] MEDS ORDERED: SODIUM CHLORIDE 0.9% 1,000 ML IV ONE ×2 (15:11)
[2022-04-26 15:47] VITALS: RESP 18
[2022-04-26 16:13] VITALS: BP 153/79; PULSE 83
== END 2022-04-26 16:38 | disposition home or self-care (01) ==
LOC: OR 11:48
PROVIDERS: ATTEND Orthopaedic Surgery
DX: M23.204 Derangement of unspecified medial meniscus due to old tear or injury, left knee (principal); M23.202 Derangement of unspecified lateral meniscus due to old tear or injury, unspecified knee; M65.862 Other synovitis and tenosynovitis, left lower leg; M94.262 Chondromalacia, left knee; E03.9 Hypothyroidism, unspecified; F41.9 Anxiety disorder, unspecified; Z98.51 Tubal ligation status; Z98.891 History of uterine scar from previous surgery; Z98.84 Bariatric surgery status; Z90.49 Acquired absence of other specified parts of digestive tract; Z87.11 Personal history of peptic ulcer disease; E66.9 Obesity, unspecified; Z68.41 Body mass index [BMI] 40.0-44.9, adult; Z79.890 Hormone replacement therapy; Z79.899 Other long term (current) drug therapy
CPT/HCPCS: 81025; 29880; 29879; J2250; J1100; J0690; J2405; J3010; J2704; J1170

== ENCOUNTER 2022-04-27 16:23 | Emergency (ER) | payer BC, OTHER ==
[2022-04-27 16:29] VITALS: RESP 20; TEMP 98.1
--- NOTE | 2022-04-27 16:46 | ED ---
General Adult HPI - General Chief complaint: Chest Pain Stated complaint: Chest Pain/Surgery 04/26 Time Seen by Provider: 04/27/22 16:31 Source: family Mode of arrival: wheelchair Limitations: no limitations - History of Present Illness Initial comments: Dictation was produced using [employer] dictation software. please excuse any grammatical, word or spelling errors. Chief Complaint: 41-year-old female presents to the emergency room for postoperative pleuritic chest pain History of Present Illness: 41-year-old female she has had meniscal surgery yesterday performed by Dr. Lockhart. This morning she woke up and had pleuritic chest pain. She states sharp located to the substernal area worse when she takes deep breath. Patient states that she does have some postoperative pain. She does notice some swelling and pain behind her knee and towards her left medial thigh. Patient states she has blood disorders that make her prone to blood clots. She does not have a history of DVT or PE. She called her orthopedic surgery office and was told to come to the emergency department. The ROS documented in this emergency department record has been reviewed and confirmed by me. Those systems with pertinent positive or negative responses have been documented in the HPI. All other systems are other negative and/or noncontributory. PHYSICAL EXAM: General Impression: Alert and oriented x3, not in acute distress HEENT: Normocephalic atraumatic, extra-ocular movements intact, pupils equal and reactive to light bilaterally, mucous membranes moist. Cardiovascular: Heart regular rate and rhythm Chest: Able to complete full sentences, no retractions, no tachypnea Abdomen: abdomen soft, non-tender, non-distended, no organomegaly Musculoskeletal: Pulses present and equal in all extremities, no peripheral edema Motor: no focal deficits noted Neurological: CN II-XII grossly intact, no focal motor or sensory deficits noted Skin: Intact with no visualized rashes Psych: Normal affect and mood ED course: 41-year-old well-appearing female presents emergency department for postoperative pleurisy. Patient does have risk factors for PE. Vital signs upon arrival are within acceptable limits. Patient's well-appearing at the [facility]. Laboratory evaluation obtained. CBC and metabolic panel is unremarkable. Initial CT had poor contrast timing. Repeat CT was obtained showing no acute issues. Lung tissue is well-appearing. No concerns for pulmonary embolus. Patient observed in the emergency department for approximately 3 hours and 40 minutes patient is reevaluated at bedside at 8:00 PM onto be stable medical condition. Discharge she is advised follow-up with orthopedic surgery. Patient likely having chest wall pain secondary to pleurisy. Patient has no high-risk features. Patient advised follow-up with primary care doctor. EKG interpretation: Ventricular rate 65, sinus rhythm,. Interval 150, Q is 90, QTC 434. No NH prolongation, no QTC prolongation, no ST or T-wave changes noted. Overall, this EKG is unremarkable - Related Data Home Medications Medication Instructions Recorded Confirmed Omeprazole 40 mg PO HS 08/23/20 04/27/22 Budesonide [Pulmicort Flexhaler] 1 puff INHALATION RT-BID PRN 11/07/21 04/27/22 Ergocalciferol [Vitamin D2 (1250 1,250 mcg PO WATSON 11/07/21 04/27/22 Mcg = 90983 Iu)] Escitalopram [Lexapro] 20 mg PO HS 11/07/21 04/27/22 Loratadine [Claritin] 10 mg PO HS 11/07/21 04/27/22 buPROPion XL [Wellbutrin XL] 150 mg PO HS 11/07/21 04/27/22 Cholecalciferol [Vitamin D3 (25 25 mcg PO DAILY 04/25/22 04/27/22 Mcg = 1000 Iu)] HYDROcodone/APAP 5-325MG [[place] 1 tab PO Q6H PRN 04/27/22 04/27/22 5-325] Previous Rx's Medication Instructions Recorded Levothyroxine Sodium [Euthyrox] 125 mcg PO DAILY #30 tablet 11/15/21 Allergies Allergy/AdvReac Type Severity Reaction Status Date / Time adhesive tape Allergy Rash/Hives Verified 04/27/22 18:47 antibiotics AdvReac thrush Uncoded 04/27/22 18:47 Review of Systems ROS Statement: Those systems with pertinent positive or pertinent negative responses have been documented in the HPI. ROS Other: All systems not noted in ROS Statement are negative. Past Medical History Past Medical History: Asthma, GERD/Reflux Additional Past Medical History / Comment(s): anemia, hx of kidney stones. stomach ulcer, covid positive 10/25/2021, ruptured appendix 2020 w/surg. History of Any Multi-Drug Resistant Organisms: None Reported Past Surgical History: Appendectomy, Bariatric Surgery, Section, Cholecystectomy, Tubal Ligation Additional Past Surgical History / Comment(s): lap band 2010 lap band removed and gastric bypass 2014, c section x 3 reversal of tubal lig ation 2017, lap appendectomy after rupture 11-08-21 Past Anesthesia/Blood Transfusion Reactions: No Reported Reaction Past Psychological History: Depression Smoking Status: Never smoker - Past Family History Mother Family Medical History: Thyroid Disorder Father Additional Family Medical History / Comment(s): FTD,menieres disease. 08/29/2021 General Exam Limitations: no limitations Course Vital Signs 04/27/22 04/27/22 16:25 19:37 Temperature 98.1 F Pulse Rate 77 62 Respiratory 20 20 Rate Blood Pressure 144/89 140/86 O2 Sat by Pulse 97 100 Oximetry Medical Decision Making - Lab Data Result diagrams: 04/27/22 17:03 04/27/22 17:03 Lab Results 04/27/22 04/27/22 04/27/22 Range/Units 17:03 17:03 17:03 WBC 5.1 (3.8-10.6) k/uL RBC 4.09 (3.80-5.40) m/uL Hgb 10.5 L (11.4-16.0) gm/dL Hct 33.8 L (34.0-46.0) % MCV 82.6 (80.0-100.0) fL MCH 25.6 (25.0-35.0) pg MCHC 31.0 (31.0-37.0) g/dL RDW 15.3 (11.5-15.5) % Plt Count 309 (150-450) k/uL MPV 6.9 Neutrophils % 56 % Lymphocytes % 31 % Monocytes % 6 % Eosinophils % 3 % Basophils % 1 % Neutrophils # 2.9 (1.3-7.7) k/uL Lymphocytes # 1.6 (1.0-4.8) k/uL Monocytes # 0.3 (0-1.0) k/uL Eosinophils # 0.2 (0-0.7) k/uL Basophils # 0.0 (0-0.2) k/uL Hypochromasia Slight Sodium 136 L (137-145) mmol/L Potassium 3.9 (3.5-5.1) mmol/L Chloride 108 H (98-107) mmol/L Carbon Dioxide 25 (22-30) mmol/L Anion Gap 3 mmol/L BUN 12 (7-17) mg/dL Creatinine 0.80 (0.52-1.04) mg/dL Est GFR (CKD-EPI)AfAm >90 (>60 ml/min/1.73 sqM) Est GFR (CKD-EPI)NonAf >90 (>60 ml/min/1.73 sqM) Glucose 91 (74-99) mg/dL Calcium 8.3 L (8.4-10.2) mg/dL Troponin I <0.012 (0.000-0.034) ng/mL Disposition Clinical Impression: Pleurisy Disposition: HOME SELF-CARE Condition: Good Instructions (If sedation given, give patient instructions): Pleurisy (ED) Is patient prescribed a controlled substance at d/c from ED?: No Referrals: Clement Avila MD [Primary Care Provider] - 1-2 days Jagjit Lockhart DO [Doctor of Osteopathic Medicine] - 1-2 days Time of Disposition: 20:02
[2022-04-27 17:22] LABS: Basophils % (A) 1 %; Eosinophils # (A) 0.2 k/uL (0-0.7); Eosinophils % (A) 3 %; HCT 33.8 % (34.0-46.0); HGB 10.5 gm/dL (11.4-16.0); Hypochromasia Slight; Lymphocytes # (A) 1.6 k/uL (1.0-4.8); Lymphocytes % (A) 31 %; MCH 25.6 pg (25.0-35.0); MCV 82.6 fL (80.0-100.0); Mean Platelet Volume 6.9; Monocytes # (A) 0.3 k/uL (0-1.0); Monocytes % (A) 6 %; Neutrophils # (A) 2.9 k/uL (1.3-7.7); Neutrophils % (A) 56 %; Platelet Count 309 k/uL (150-450); RBC 4.09 m/uL (3.80-5.40); RDW 15.3 % (11.5-15.5); WBC 5.1 k/uL (3.8-10.6)
[2022-04-27 17:38] LABS: African American GFR (CKD) >90 (>60 ml/min/1.73 sqM); Anion Gap 3 mmol/L; Blood Urea Nitrogen 12 mg/dL (7-17); Calcium 8.3 mg/dL (8.4-10.2); Carbon Dioxide 25 mmol/L (22-30); Chloride 108 mmol/L (98-107); Glucose 91 mg/dL (74-99); Non-African American GFR(CKD) >90 (>60 ml/min/1.73 sqM); Potassium 3.9 mmol/L (3.5-5.1); Sodium 136 mmol/L (137-145)
[2022-04-27] MEDS ORDERED: Acetaminophen-Codeine 300-30mg TAB PO STA (17:55)
--- NOTE | 2022-04-27 18:50 | CT ---
EXAMINATION TYPE: CT angio chest CT DLP: 797.4 mGycm, Automated exposure control for dose reduction was used. DATE OF EXAM: 04/27/2022 6:13 PM COMPARISON: None CLINICAL INDICATION:Female, 41 years old with history of positive D-dimer; pos d dimer TECHNIQUE/CONTRAST: CTA scan of the thorax is performed with IV Contrast, patient injected with 100ml mL of Isovue 370, p ulmonary embolism protocol. MIP images are created and reviewed. FINDINGS: Pulmonary Artery: Bolus timing is limited for evaluation for pulmonary embolism. The aorta and its ma ayanna vessels are patent. The pulmonary artery is of normal size. Lungs/Pleura: No evidence of focal consolidation, pleural effusion or pneumothorax. Streaky atelectas is/scarring seen within the lung bases. Airway: Large airways are patent. Heart: Heart is within normal limits for size.. Vasculature: No evidence of aortic aneurysm. Mediastinum: No gross evidence of adenopathy. Musculoskeletal: No acute osseous abnormalities. Multilevel disc degeneration changes throughout the spine without evidence for acute fracture. Soft Tissues: Unremarkable. Lower neck: No significant findings. Upper Abdomen: Postsurgical changes in the gastric lumen. The gallbladder is removed. IMPRESSION: 1. Poor bolus timing makes evaluation for pulmonary embolus nondiagnostic. 2. The aorta is without evidence for dissection or acute aortic syndrome. 3. No evidence for acute process within the thorax.
[2022-04-27 19:38] VITALS: BP 140/86; PULSE 62
--- NOTE | 2022-04-27 19:38 | CT ---
EXAMINATION TYPE: CT angio chest CT DLP: 689.7 mGycm, Automated exposure control for dose reduction was used. DATE OF EXAM: 04/27/2022 7:15 PM COMPARISON: Same day CT angiogram. CLINICAL INDICATION:Female, 41 years old with history of positive D-dimer; elevated d-dimer, chest di scomfort post-op knee sx TECHNIQUE/CONTRAST: Repeat CT angiogram due to poor bolus timing and prior. CTA scan of the thorax is performed with IV Contrast, patient injected with 85cc mL of Isovue 370, pu lmonary embolism protocol. MIP images are created and reviewed. FINDINGS: Pulmonary Artery: There is no evidence for a filling defect within the pulmonary vasculature to sugge st acute pulmonary embolism. The pulmonary artery is of normal size. The remainder of exam does not demonstrate significant findings.. IMPRESSION: 1. No evidence of pulmonary embolism.
== END 2022-04-27 20:07 | disposition home or self-care (01) ==
LOC: EC 16:23
DX: R09.1 Pleurisy (principal); J45.909 Unspecified asthma, uncomplicated; K21.9 Gastro-esophageal reflux disease without esophagitis; Z86.16 Personal history of COVID-19; Z79.899 Other long term (current) drug therapy; Z88.1 Allergy status to other antibiotic agents; Z91.09 Other allergy status, other than to drugs and biological substances
CPT/HCPCS: 36415; 93005; 80048; 84484; 85025; 71275; 99285; Q9967

== ENCOUNTER 2023-02-17 03:44 | Emergency (ER) | payer BC, OTHER ==
[2023-02-17 03:49] VITALS: BP 172/89; PULSE 71; RESP 20; TEMP 97.9
[2023-02-17] MEDS ORDERED: KETOROLAC 15 MG/ML 1 ML VIAL IVP STA (04:10)
[2023-02-17] MEDS ORDERED: ONDANSETRON 4 MG/2 ML VIAL IVP STA (04:10)
[2023-02-17] MEDS ORDERED: SODIUM CHLORIDE 0.9% 1,000 ML IV STA (04:10)
[2023-02-17 04:43] LABS: Anisocytosis Slight; Basophils % (A) 0 %; Eosinophils # (A) 0.2 k/uL (0-0.7); Eosinophils % (A) 3 %; HCT 37.6 % (34.0-46.0); HGB 12.3 gm/dL (11.4-16.0); Lymphocytes # (A) 1.5 k/uL (1.0-4.8); Lymphocytes % (A) 25 %; MCH 28.1 pg (25.0-35.0); MCHC 32.6 g/dL (31.0-37.0); MCV 86.2 fL (80.0-100.0); Mean Platelet Volume 7.2; Monocytes # (A) 0.3 k/uL (0-1.0); Monocytes % (A) 5 %; Neutrophils # (A) 3.9 k/uL (1.3-7.7); Neutrophils % (A) 65 %; Platelet Count 268 k/uL (150-450); RBC 4.36 m/uL (3.80-5.40); RDW 18.1 % (11.5-15.5)
--- NOTE | 2023-02-17 04:44 | ED ---
General Adult HPI - General Chief complaint: Abdominal Pain Stated complaint: ABD Pain Time Seen by Provider: 02/17/23 04:00 Source: patient, RN notes reviewed, old records reviewed Mode of arrival: ambulatory - History of Present Illness Initial comments: Patient is a 42-year-old female with past medical history remarkable for gastric bypass surgery, acid reflux, asthma who presents emergency department over concern for possible hernia. Does have a history of hernias. He is complaining of pain for multiple weeks, worse over the last week since lifting up her child on a train. Has noticed some pain just to the right of her umbilicus. Associated with this is some "peanut butter-like stool" as well as some increased gas. Denies any constipation. Endorses nausea but no emesis. Denies any chest pain or shortness of breath. Has required laparoscopy with Dr. Grant multiple times for nonspecific abdominal pain the past. He was due to have this done in early February however it had to be canceled as her surgeon is out of town. She presents tonight as her pain is worse and she just returned from a trip to [place]. Denies any known palliative or provocative factors. Has been attempting to use Tylenol as well as abdominal binders for some dramatic relief with minimal success. Pain has been more or less constant with no waxing or waning.Patient does have a history of multiple abdominal surgeries in the past including gastric bypass, lysis of adhesions, section. - Related Data Home Medications Medication Instructions Recorded Confirmed Omeprazole 40 mg PO HS 08/23/20 01/29/23 Budesonide [Pulmicort Flexhaler] 1 puff INHALATION RT-BID PRN 11/07/21 01/29/23 Escitalopram [Lexapro] 20 mg PO HS 11/07/21 01/29/23 Loratadine [Claritin] 10 mg PO HS 11/07/21 01/29/23 buPROPion XL [Wellbutrin XL] 150 mg PO HS 11/07/21 01/29/23 Propranolol [Inderal] 10 mg PO QID PRN 01/16/23 01/29/23 Previous Rx's Medication Instructions Recorded Levothyroxine Sodium [Euthyrox] 125 mcg PO DAILY #30 tablet 11/15/21 Cefdinir [Omnicef] 300 mg PO Q12HR 7 Days #14 capsule 02/17/23 Fluconazole [Diflucan] 100 mg PO DAILY #2 tablet 02/17/23 methocarbamoL [Robaxin] 500 mg PO BID PRN 5 Days #10 tab 02/17/23 Allergies Allergy/AdvReac Type Severity Reaction Status Date / Time adhesive tape Allergy Rash/Hives Verified 02/17/23 03:49 antibiotics AdvReac thrush Uncoded 02/17/23 03:49 Review of Systems ROS Statement: Those systems with pertinent positive or pertinent negative responses have been documented in the HPI. Review of Systems: CONST: Denies fever EYES: Denies blurry vision ENT: Denies nasal congestion C/V: Denies Chest pain RESP: Denies shortness of breath GI: Endorses abdominal pain : Denies dysuria SKIN: Denies rash. MSK: Denies joint pain. NEURO: Denies headache ROS Other: All systems not noted in ROS Statement are negative. Past Medical History Past Medical History: Asthma, GERD/Reflux Additional Past Medical History / Comment(s): anemia, hx of kidney stones. stom ach ulcer, covid positive 10/25/2021, ruptured appendix 2020 w/surg. History of Any Multi-Drug Resistant Organisms: None Reported Past Surgical History: Appendectomy, Bariatric Surgery, Section, Cholecystectomy, Orthopedic Surgery, Tubal Ligation Additional Past Surgical History / Comment(s): lap band 2010 lap band removed and gastric bypass 2014, c section x 3 /2018 reversal of tubal ligation 2017, lap appendectomy after rupture 11-08-21, left knee surgery Past Anesthesia/Blood Transfusion Reactions: No Reported Reaction Past Psychological History: Depression Smoking Status: Never smoker Past Alcohol Use History: None Reported Past Drug Use History: None Reported - Past Family History Mother Family Medical History: Thyroid Disorder Father Additional Family Medical History / Comment(s): FTD,menieres disease. 08/29/2021 General Exam - General Exam Comments Initial Comments: General: Appears in no acute distress. HEAD: Normal with no signs of head trauma. EYES: PERRLA, EOMI, conjunctiva normal, no discharge. ENT: Hearing grossly intact, normal oropharynx. RESPIRATORY: Clear breath sounds bilaterally. No wheezes, rales, or rhonchi. C/V: Regular rate and rhythm. S1 and S2 auscultated, no edema, peripheral pulses 2+ and intact throughout ABD: Abdomen soft, nondistended. Mildly tender to palpation just right of the umbilicus. No masses palpated. No obvious hernia palpated. No skin changes. No guarding. No peritoneal signs. No rebound tenderness. EXT: Normal range of motion, no obvious deformity SKIN: No rashes or lesions observed on exposed skin. NEURO: Alert and oriented 4. Course Vital Signs 02/17/23 03:46 Temperature 97.9 F Pulse Rate 71 Respiratory 20 Rate Blood Pressure 172/89 O2 Sat by Pulse 100 Oximetry Medical Decision Making - Medical Decision Making Was pt. sent in by a medical professional or institution (, PA, SPECIAL AGENT SECRET SERVICE, urgent care, hospital, or detention...) When possible be specific @ -No Did you speak to anyone other than the patient for history (EMS, parent, family, police, friend...)? What history was obtained from this source @ -No Did you review nursing and triage notes (agree or disagree)? Why? @ -I reviewed and agree with nursing and triage notes Were old charts reviewed (outside hosp., previous admission, EMS record, old EKG, old radiological studies, urgent care reports/EKG's, detention records)? Report findings @ -No old charts were reviewed Differential Diagnosis (chest pain, altered mental status, abdominal pain women, abdominal pain men, vaginal bleeding, weakness, fever, dyspnea, syncope, headache, dizziness, GI bleed, back pain, seizure, CVA, palpatations, mental health, musculoskeletal)? @ -Differential Abdominal Pain Women: Appendicitis, Cholecystitis, diverticulosis, ischemic bowel, pancreatitis, hepatitis, UTI, gastroenteritis, AAA, incarcerated hernia, bowel obstruction, c onstipation, inflammatory bowel, hepatitis, peptic ulcer disease, splenic infarction, perforated viscus, vulvitis, ovarian torsion, PID, kidney stone, placenta abruption, this is not meant to be an all-inclusive list EKG interpreted by me (3pts min.). @ -None done X-rays interpreted by me (1pt min.). @ -None done CT interpreted by me (1pt min.). @ -CT abdomen and pelvis revealed no obvious acute intra-abdominal process. U/S interpreted by me (1pt. min.). @ -None done What testing was considered but not performed or refused? (CT, X-rays, U/S, labs)? Why? @ -None What meds were considered but not given or refused? Why? @ -None Did you discuss the management of the patient with other professionals (professionals i.e. , PA, SPECIAL AGENT [employer]ICE, lab, RT, psych nurse, child welfare social worker, business team leader, teacher, financial services officer, upper caser)? Give summary @ -No Was smoking cessation discussed for >3mins.? @ -No Was critical care preformed (if so, how long)? @ -No Were there social determinants of health that impacted care today? How? (Homelessness, low income, unemployed, alcoholism, drug addiction, transportation, low edu. Level, literacy, decrease access to med. care, fpc, rehab)? @ -No Was there de-escalation of care discussed even if they declined (Discuss DNR or withdrawal of care, Hospice)? DNR status @ -No What co-morbidities impacted this encounter? (DM, HTN, Smoking, COPD, CAD, Cancer, CVA, ARF, Chemo, Hep., AIDS, mental health diagnosis, sleep apnea, morbid obesity)? @ -History of gastric bypass surgery, lysis of adhesions, C-sections Was patient admitted / discharged? Hospital course, mention meds given and route, prescriptions, significant lab abnormalities, going to OR and other pertinent info. @ -Based on the patient's presentation and physical exam, she does present weaning of focal abdominal pain. Concern for possible hernia, however no obvious palpable mass. Patient does have a history of gastric bypass as well. We'll obtain abdominal laboratory studies as well as a CT abdomen and pelvis with contrast. She'll be symptomatically treated with an IV fluid bolus, IV Toradol, Zofran. She was in agreement this plan. Vital signs within acceptable limits. Patient's imaging returned negative for any acute process. Labs were remarkable for normal blood work. She is not . Urinalysis shows a UTI. I updated the patient. She expressed understanding. Diagnosis is abdominal pain of unknown etiology as well as a UTI. She requested cefdinir for her antibiotic as well as fluconazole tablets. This will be provided. Recommended follow-up with her surgeon. She was in agreement this plan. Strict return precautions were discussed. I will provide the patient with a prescription for Robaxin, Cefdinir, fluconazole. I instructed the patient to follow up with their PCP in the next 1- 3 days. I explained that the patient should return to the emergency department if they experience any worsening symptoms. Strict return precautions were discussed with the patient. The patient expressed understanding of these instructions. I answered all questions that the patient had. The patient was discharged home in good condition with their prescriptions and follow up information. Undiagnosed new problem with uncertain prognosis? @ -No Drug Therapy requiring intensive monitoring for toxicity (Heparin, Nitro, Insulin, Cardizem)? @ -No Were any procedures done? @ -No Diagnosis/symptom? @ -Abdominal pain of unknown etiology Acute, or Chronic, or Acute on Chronic? @ -Acute Uncomplicated (without systemic symptoms) or Complicated (systemic symptoms)? @ -Uncomplicated Side effects of treatment? @ -none Exacerbation, Progression, or Severe Exacerbation] @ -no Poses a threat to life or bodily function? @ -no Diagnosis/symptom? @ -UTI Acute, or Chronic, or Acute on Chronic? @ -Acute Uncomplicated (without systemic symptoms) or Complicated (systemic symptoms)? @ -Uncomplicated Side effects of treatment? @ -none Exacerbation, Progression, or Severe Exacerbation] @ -no Poses a threat to life or bodily function? @ -no - Lab Data Result diagrams: 02/17/23 04:21 02/17/23 04:21 Lab Results 02/17/23 02/17/23 02/17/23 Range/Units 04:21 04:21 04:21 WBC 6.0 (3.8-10.6) k/uL RBC 4.36 (3.80-5.40) m/uL Hgb 12.3 (11.4-16.0) gm/dL Hct 37.6 (34.0-46.0) % MCV 86.2 (80.0-100.0) fL MCH 28.1 (25.0-35.0) pg MCHC 32.6 (31.0-37.0) g/dL RDW 18.1 H (11.5-15.5) % Plt Count 268 (150-450) k/uL MPV 7.2 Neutrophils % 65 % Lymphocytes % 25 % Monocytes % 5 % Eosinophils % 3 % Basophils % 0 % Neutrophils # 3.9 (1.3-7.7) k/uL Lymphocytes # 1.5 (1.0-4.8) k/uL Monocytes # 0.3 (0-1.0) k/uL Eosinophils # 0.2 (0-0.7) k/uL Basophils # 0.0 (0-0.2) k/uL Anisocytosis Slight PT 9.6 (9.0-12.0) sec INR 0.9 (<1.2) APTT 23.3 (22.0-30.0) sec Sodium 139 (137-145) mmol/L Potassium 4.0 (3.5-5.1) mmol/L Chloride 103 (98-107) mmol/L Carbon Dioxide 25 (22-30) mmol/L Anion Gap 11 mmol/L BUN 16 (7-17) mg/dL Creatinine 0.79 (0.52-1.04) mg/dL Est GFR (CKD-EPI)AfAm >90 (>60 ml/min/1.73 sqM) Est GFR (CKD-EPI)NonAf >90 (>60 ml/min/1.73 sqM) Glucose 91 (74-99) mg/dL Plasma Lactic Acid Mk (0.7-2.0) mmol/L Calcium 9.1 (8.4-10.2) mg/dL Total Bilirubin 0.3 (0.2-1.3) mg/dL AST 20 (14-36) U/L ALT 25 (4-34) U/L Alkaline Phosphatase 89 (38-126) U/L Total Protein 7.6 (6.3-8.2) g/dL Albumin 4.4 (3.5-5.0) g/dL Lipase 85 (23-300) U/L HCG, Qual Not Detected Urine Color Urine Appearance (Clear) Urine pH (5.0-8.0) Ur Specific [place] (1.001-1.035) Urine Protein (Negative) Urine Glucose (UA) (Negative) Urine Ketones (Negative) Urine Blood (Negative) Urine Nitrite (Negative) Urine Bilirubin (Negative) Urine Urobilinogen (<2.0) mg/dL Ur Leukocyte Esterase (Negative) Urine RBC (0-5) /hpf Urine WBC (0-5) /hpf Ur Squamous Epith Cells (0-4) /hpf Urine Bacteria (None) /hpf Urine Mucus (None) /hpf 02/17/23 02/17/23 Range/Units 04:21 04:35 WBC (3.8-10.6) k/uL RBC (3.80-5.40) m/uL Hgb (11.4-16.0) gm/dL Hct (34.0-46.0) % MCV (80.0-100.0) fL MCH (25.0-35.0) pg MCHC (31.0-37.0) g/dL RDW (11.5-15.5) % Plt Count (150-450) k/uL MPV Neutrophils % % Lymphocytes % % Monocytes % % Eosinophils % % Basophils % % Neutrophils # (1.3-7.7) k/uL Lymphocytes # (1.0-4.8) k/uL Monocytes # (0-1.0) k/uL Eosinophils # (0-0.7) k/uL Basophils # (0-0.2) k/uL Anisocytosis PT (9.0-12.0) sec INR (<1.2) APTT (22.0-30.0) sec Sodium (137-145) mmol/L Potassium (3.5-5.1) mmol/L Chloride (98-107) mmol/L Carbon Dioxide (22-30) mmol/L Anion Gap mmol/L BUN (7-17) mg/dL Creatinine (0.52-1.04) mg/dL Est GFR (CKD-EPI)AfAm (>60 ml/min/1.73 sqM) Est GFR (CKD-EPI)NonAf (>60 ml/min/1.73 sqM) Glucose (74-99) mg/dL Plasma Lactic Acid Mk 0.7 (0.7-2.0) mmol/L Calcium (8.4-10.2) mg/dL Total Bilirubin (0.2-1.3) mg/dL AST (14-36) U/L ALT (4-34) U/L Alkaline Phosphatase (38-126) U/L Total Protein (6.3-8.2) g/dL Albumin (3.5-5.0) g/dL Lipase (23-300) U/L HCG, Qual Urine Color Yellow Urine Appearance Clear (Clear) Urine pH 5.5 (5.0-8.0) Ur Specific [place] 1.019 (1.001-1.035) Urine Protein Negative (Negative) Urine Glucose (UA) Negative (Negative) Urine Ketones Negative (Negative) Urine Blood Trace H (Negative) Urine Nitrite Positive H (Negative) Urine Bilirubin Negative (Negative) Urine Urobilinogen <2.0 (<2.0) mg/dL Ur Leukocyte Esterase Small H (Negative) Urine RBC 1 (0-5) /hpf Urine WBC 22 H (0-5) /hpf Ur Squamous Epith Cells 1 (0-4) /hpf Urine Bacteria Moderate H (None) /hpf Urine Mucus Rare H (None) /hpf Disposition Clinical Impression: Abdominal pain of unknown etiology, UTI (urinary tract infection) Disposition: HOME SELF-CARE Condition: Good Instructions (If sedation given, give patient instructions): Urinary Tract Infection in Women (DC), Abdominal Pain (ED) Prescriptions: Fluconazole [Diflucan] 100 mg PO DAILY #2 tablet Cefdinir [Omnicef] 300 mg PO Q12HR 7 Days #14 capsule methocarbamoL [Robaxin] 500 mg PO BID PRN 5 Days #10 tab PRN Reason: Pain Is patient prescribed a controlled substance at d/c from ED?: No Referrals: Clement Avila MD [Primary Care Provider] - 1-2 days Time of Disposition: 05:25
[2023-02-17 04:45] LABS: HCG,Qualitative Serum Not Detected
[2023-02-17 04:46] LABS: INR 0.9 (<1.2); Partial Thromboplastin Time 23.3 sec (22.0-30.0); Prothrombin Time 9.6 sec (9.0-12.0)
[2023-02-17 04:49] LABS: ALT 25 U/L (4-34); AST 20 U/L (14-36); African American GFR (CKD) >90 (>60 ml/min/1.73 sqM); Albumin 4.4 g/dL (3.5-5.0); Alkaline Phosphatase 89 U/L (38-126); Anion Gap 11 mmol/L; Blood Urea Nitrogen 16 mg/dL (7-17); Calcium 9.1 mg/dL (8.4-10.2); Carbon Dioxide 25 mmol/L (22-30); Chloride 103 mmol/L (98-107); Glucose 91 mg/dL (74-99); Lipase 85 U/L (23-300); Non-African American GFR(CKD) >90 (>60 ml/min/1.73 sqM); Sodium 139 mmol/L (137-145); Total Bilirubin 0.3 mg/dL (0.2-1.3); Total Protein 7.6 g/dL (6.3-8.2)
[2023-02-17 05:03] LABS: Appearance,Urine Clear (Clear); Bacteria,Urine Moderate /hpf; Bilirubin,Urine Negative (Negative); Blood,Urine Trace (Negative); Color,Urine Yellow; Glucose,Urine (UA) Negative (Negative); Ketones,Urine Negative (Negative); Leukocyte Esterase,Urine Small (Negative); Mucus,Urine Rare /hpf; Nitrite,Urine Positive (Negative); PH, Urine 5.5 (5.0-8.0); Protein,Urine Negative (Negative); RBC,Urine 1 /hpf (0-5); Specific Gravity,Urine 1.019 (1.001-1.035); Squamous Epithelial Cell,Urine 1 /hpf (0-4); Urobilinogen,Urine <2.0 mg/dL (<2.0); WBC,Urine 22 /hpf (0-5)
--- NOTE | 2023-02-17 05:21 | CT ---
EXAMINATION TYPE: CT abdomen pelvis w con DATE OF EXAM: 02/17/2023 COMPARISON: 11/07/2021 HISTORY: PERIUMBILICAL, RT SIDED ABD PAIN CT DLP: 2201 mGycm Automated exposure control for dose reduction was used. CONTRAST: Performed with IV Contrast, patient injected with 100 mL of Isovue 300. Images obtained from the diaphragm to the floor the pelvis with the IV contrast. Lung bases are clear. No pleural effusion. Heart size is normal. No pericardial effusion. There are clips from gastric bariatric surgery. There are clips of cholecystectomy. Liver spleen panc reas appear intact. The bile ducts are not dilated. There is no adrenal mass. Kidneys show satisfactory contrast opacification. No hydronephrosis. The bl adder distends smoothly. Ureters are not dilated. No inguinal hernia. No evidence of pelvic mass. The re are clips apparently from appendectomy. There is no mesenteric edema. No ascites or free air. No sign of a bowel obstruction. The lumbar vertebrae have normal alignment. No compression fracture. Posterior elements are intact. T he bony pelvis is intact. The hip joints are intact. IMPRESSION: There is appendectomy compared to old exam. No acute abnormality in the abdomen pelvis.
[2023-02-17] MEDS ORDERED: CEFDINIR 300 MG CAP PO STA (05:27)
== END 2023-02-17 05:46 | disposition home or self-care (01) ==
LOC: EC 03:44
DX: N39.0 Urinary tract infection, site not specified (principal); B96.20 Unspecified Escherichia coli [E. coli] as the cause of diseases classified elsewhere; J45.909 Unspecified asthma, uncomplicated; K21.9 Gastro-esophageal reflux disease without esophagitis; F32.A Depression, unspecified; Z79.51 Long term (current) use of inhaled steroids; Z79.899 Other long term (current) drug therapy; Z88.1 Allergy status to other antibiotic agents; Z91.048 Other nonmedicinal substance allergy status; Z98.84 Bariatric surgery status; Z90.49 Acquired absence of other specified parts of digestive tract; Z86.16 Personal history of COVID-19
CPT/HCPCS: 99284 ×2; 96374 ×2; 96375 ×2; 96361 ×2; 36415; 80053; 83605; 83690; 85025; 85610; 85730; 81001; 84703; 87086; 87077; 87186; 74177; J2405; J1885; Q9967

== ENCOUNTER → 2023-06-19 | Outpatient (CLI) | payer BC, OTHER ==
--- NOTE | 2023-06-20 08:48 | XR ---
EXAMINATION TYPE: XR shoulder complete RT DATE OF EXAM: 06/19/2023 4:41 PM INDICATION: Patient age:Female; 43 years old; Reason for study: M25.511; COMPARISON: None TECHNIQUE: The right shoulder was examined in AP, internally rotated and scapular Y projections. FINDINGS: Calcification near the insertion of the supraspinatus tendon. Seen on one view only No evidence of acute osseous pathology, joint dislocation, or soft tissue swelling. The remaining por tions of the visualized chest are unremarkable. IMPRESSION: 1. No acute osseous pathology. 2. Findings suspicious for calcific tendinosis. Consider confirmation with MRI right shoulder.
== END | disposition home or self-care (01) ==
LOC: RADXRMAIN 16:23
PROVIDERS: ATTEND Internal Medicine
DX: M25.511 Pain in right shoulder (principal)

== ENCOUNTER → 2023-06-20 | Outpatient (CLI) | payer BC, OTHER ==
--- NOTE | 2023-06-21 19:19 | MM ---
Reason for Exam: Screening (asymptomatic). Baseline mammogram. Patient History: Menarche at age 13. First Full-Term at age 29. Premenopausal. Last menstrual period: 06/08/2023 Risk Values: Preethi 5 year model risk: 0.7%. NCI Lifetime model risk: 12.0%. Prior Study Comparison: Patient's first Mammogram. Tissue Density: The breast tissue is heterogeneously dense. This may lower the sensitivity of mammography. Findings: Analyzed By CAD. Focal asymmetry lower inner quadrant right breast anterior depth incompletely disperses on 3-D images. This may represent superimposition shadow but further evaluation is recommended. There is no suspicious group of microcalcifications or other discrete abnormality seen in either breast. Overall Assessment: Incomplete: need additional imaging evaluation, BI-RAD 0 Management: Special View Mammogram of the right breast. Including spot 3-D CC, 3-D CC rolled lateral, spot 3-D MLO, and 3-D LM views. Targeted right breast ultrasound if any persisting abnormality. [facility] will attempt to contact patient to return for supplemental views and ultrasound if indicated. Electronically signed and approved by: Mich Gregory M.D. Radiologist
== END | disposition home or self-care (01) ==
LOC: RADMAMWWP 11:12
PROVIDERS: ATTEND Obstetrics & Gynecology
DX: Z12.31 Encounter for screening mammogram for malignant neoplasm of breast (principal)
CPT/HCPCS: 77063; 77067

== ENCOUNTER → 2023-06-25 | Outpatient (CLI) | payer BC, OTHER ==
--- NOTE | 2023-06-25 11:40 | MM ---
Reason for Exam: Additional evaluation requested from abnormal screening. Last screening mammogram was performed less than 1 month ago. Patient History: Menarche at age 13. First Full-Term at age 29. Premenopausal. Risk Values: Preethi 5 year model risk: 0.7%. NCI Lifetime model risk: 12.0%. Tissue Density: Right: There are scattered fibroglandular densities. Findings: Analyzed By CAD. A 3:00 elongated focal asymmetry becomes less defined on some spot images and incompletely dispersed on other views. Suspect a focal island of fibroglandular tissue for which a six-month follow-up is recommended. Overall Assessment: Probably benign, BI-RAD 3 Management: Diagnostic Mammogram of the right breast in 6 months. . Results were given to the patient verbally at the time of exam. Patient should continue monthly self-breast exams. A clinical breast exam by your physician is recommended on an annual basis. This exam should not preclude additional follow-up of suspicious palpable abnormalities. Note on Preethi scores and lifetime risk: 1. A Preethi score greater than 3% is considered moderate risk. If this is the case, consider specialist referral to assess eligibility for a risk reducing agent. 2. If overall lifetime risk for the development of breast cancer is 20% or higher, the patient may qualify for future screening with alternating mammogram and breast MRI. Electronically signed and approved by: Mich Gregory M.D. Radiologist
== END | disposition home or self-care (01) ==
LOC: RADMAMWWP 11:05
PROVIDERS: ATTEND Obstetrics & Gynecology
DX: R92.8 Other abnormal and inconclusive findings on diagnostic imaging of breast (principal)
CPT/HCPCS: 77061; 77065

== ENCOUNTER → 2023-07-01 | Outpatient (CLI) | payer BC, OTHER ==
--- NOTE | 2023-07-02 08:02 | US ---
EXAMINATION TYPE: US thyroid st tissue head/neck DATE OF EXAM: 07/01/2023 COMPARISON: NONE CLINICAL INDICATION: Female, 43 years old with history of E03.9 HYPOTHYROIDISM; hypothyroidism, 90 lb weight gain over 1 year GLAND SIZE: Right Lobe: 5.3x1.8x2.0 cm Overall Parenchyma: heterogenous Left Lobe: 4.4x1.3x1.4 cm Overall Parenchyma: heterogenous Isthmus Thickness: 0.4 cm NODULES RIGHT: # of nodules measured on right: 0 no discrete nodules seen, overall heterogenous LEFT: # of nodules measured on left: 1 1. 0.9 X 0.5 x 0.6 cm, mid lateral, solid or almost completely solid, hypoechoic nodule, which is w ider than tall, with smooth margins, without echogenic foci. mostly heterogenous, only one discrete nodule noted which is EXTREMELY VASCULAR ISTHMUS: # of nodules measured in the isthmus: 0 Bilateral neck scanned, no evidence of lymphadenopathy. IMPRESSION: Moderately Suspicious: FNA if ? 1.5 cm; Follow if ? 1 cm at 1, 2, 3, and 5 y 2017 ACR TI-RADS LEVEL: TR4 *Highest TI-RADS level nodule reported
== END | disposition home or self-care (01) ==
LOC: RADUSWWP 16:25
PROVIDERS: ATTEND Internal Medicine
DX: E04.2 Nontoxic multinodular goiter (principal); E03.9 Hypothyroidism, unspecified
CPT/HCPCS: 76536

== ENCOUNTER → 2023-08-26 | Outpatient (CLI) | payer BC, OTHER | END | disposition home or self-care (01) | LOC: LABMAIN 11:59 | PROVIDERS: ATTEND Physician Assistant | DX: Z20.822 Contact with and (suspected) exposure to COVID-19 (principal); J02.9 Acute pharyngitis, unspecified; B27.90 Infectious mononucleosis, unspecified without complication; B97.4 Respiratory syncytial virus as the cause of diseases classified elsewhere; R50.9 Fever, unspecified; R53.83 Other fatigue | CPT/HCPCS: 86308; 87636; 87651 ==

== ENCOUNTER → 2023-09-26 | Outpatient (CLI) | payer BC, OTHER ==
[2023-09-26 17:32] LABS: T4, Free (Free Thyroxine) 1.12 ng/dL (0.78-2.19)
== END | disposition home or self-care (01) ==
LOC: LABWHC1 15:03
PROVIDERS: ATTEND Internal Medicine Endocrinology, Diabetes & Metabolism
DX: E04.1 Nontoxic single thyroid nodule (principal); E55.9 Vitamin D deficiency, unspecified
CPT/HCPCS: 36415; 82306; 84439; 84443

== ENCOUNTER → 2023-12-26 | Outpatient (CLI) | payer BC, OTHER ==
[2023-12-27 11:00] LABS: T4, Free (Free Thyroxine) 0.99 ng/dL (0.80-1.80)
== END | disposition home or self-care (01) ==
LOC: LABWHC1 14:14
PROVIDERS: ATTEND Internal Medicine Endocrinology, Diabetes & Metabolism
DX: E04.1 Nontoxic single thyroid nodule (principal); E55.9 Vitamin D deficiency, unspecified
CPT/HCPCS: 36415; 82306; 84439; 84443

== ENCOUNTER 2024-02-10 08:18 | Day surgery (SDC) | payer BC, OTHER ==
[~2024-02-10 08:18] MED LIST changes: -DEXAMETHASONE SOD PHOSPHATE 4 MG/ML 1 ML VIAL IV ONE; +LIDOCAINE 1% (10MG/ML) FOR IV START INTRADERMA PRN; -ONDANSETRON 4 MG/2 ML VIAL IVP ONE; +ONDANSETRON 4 MG/2 ML VIAL IVP PRN
[2024-02-10] MEDS: LACTATED RINGERS 1,000 ML IV ONE ×4 (08:48→09:08)
[2024-02-10] MEDS ORDERED: LIDOCAINE 2% (PF) 20 MG/ML 5 ML VIAL ONE (08:53)
[2024-02-10] MEDS ORDERED: PROPOFOL 10 MG/ML 20 ML VIAL IV ONE (08:53)
[2024-02-10] MEDS ORDERED: fentaNYL (PF) 50 MCG/ML 2 ML AMP ONE (08:53)
[2024-02-10 09:26] VITALS: RESP 16; TEMP 97.1
[2024-02-10 09:27] VITALS: BP 132/82; PULSE 73
--- NOTE | 2024-02-10 09:38 | P.GSHP ---
History of Present Illness H&P Date: 02/10/24 CHIEF COMPLAINT: GERD HISTORY OF PRESENT ILLNESS: The patient is a 43-year-old female who presents reports gastroesophageal reflux disease. Upper endoscopy was offered for further evaluation and management. PAST MEDICAL HISTORY: Please see list. PAST SURGICAL HISTORY: Please see list. MEDICATIONS: Please see list. ALLERGIES: Please see list. SOCIAL HISTORY: No illicit drug use FAMILY HISTORY: No reports of Crohn disease or ulcerative colitis. REVIEW OF ORGAN SYSTEMS: CONSTITUTIONAL: No reports of fevers or chills. GI: Denies any blood in stools or constipation. PHYSICAL EXAM: VITAL SIGNS: Stable GENERAL: Well-developed and pleasant in no acute distress. HEENT: No scleral icterus. Extraocular movements grossly intact. Moist buccal mucosa. NECK: Supple without lymphadenopathy. CHEST: Unlabored respirations. Equal bilateral excursions. CARDIOVASCULAR: Regular rate and rhythm. Distal 2+ pulses. ABDOMEN: Soft, nondistended. MUSCULOSKELETAL: No clubbing, cyanosis, or edema. ASSESSMENT: 1. Gastroesophageal reflux disease PLAN: 1. Recommend proceeding with an upper endoscopy Past Medical History Past Medical History: Asthma, GERD/Reflux, Thyroid Disorder Additional Past Medical History / Comment(s): hx anemia, hx of kidney stones. stomach ulcer -increased abdominal pain pt thought she was having a heart attack, covid positive 10/25/2021, ruptured appendix 2020 w/surg. 2.5x2.5 c m nodule on left thryoid being watched by specialist. pt is carrier for Factor V leiden, MTHFR and one other factor issue. History of Any Multi-Drug Resistant Organisms: None Reported Past Surgical History: Appendectomy, Bariatric Surgery, Section, Cholecystectomy, Orthopedic Surgery, Tubal Ligation Additional Past Surgical History / Comment(s): lap band 2010 lap band removed and gastric bypass 2013, c section x 3 reversal of tubal ligation 2016, lap appendectomy after rupture 11-08-21, left knee surgery. egds Past Anesthesia/Blood Transfusion Reactions: No Reported Reaction Smoking Status: Never smoker - Past Family History Mother Family Medical History: Thyroid Disorder Father Additional Family Medical History / Comment(s): FTD,menieres disease. 08/29/2021 from covid. Medications and Allergies Home Medications Medication Instructions Recorded Confirmed Type Omeprazole 40 mg PO HS 08/23/20 02/10/24 History Budesonide [Pulmicort Flexhaler] 1 puff INHALATION RT-BID PRN 11/07/21 02/10/24 History Escitalopram [Lexapro] 10 mg PO HS 11/07/21 02/10/24 History Loratadine [Claritin] 10 mg PO HS 11/07/21 02/10/24 History Atomoxetine HCl [Strattera] 25 mg PO HS 02/05/24 02/06/24 History Ergocalciferol [Vitamin D2 (1250 1,250 mcg PO MO 02/05/24 02/10/24 History Mcg = [id number] Iu)] Levothyroxine Sodium [Synthroid] 175 mcg PO DAILY 02/05/24 02/10/24 History Sucralfate [Carafate] 1 gm PO QID 02/05/24 02/10/24 History Famotidine 20 mg PO DAILY 02/06/24 02/10/24 History Allergies Allergy/AdvReac Type Severity Reaction Status Date / Time adhesive tape Allergy Rash/Hives Verified 02/10/24 08:42 antibiotics AdvReac thrush Uncoded 02/10/24 08:42 Surgical - Exam Vital Signs Temp Pulse Resp BP Pulse Ox 97.1 F L 78 16 141/82 98 02/10/24 08:53 02/10/24 08:53 02/10/24 08:53 02/10/24 08:53 02/10/24 08:53
--- NOTE | 2024-02-10 09:42 | P.PCN ---
Date of Procedure: 02/10/24 Description of Procedure: PREOPERATIVE DIAGNOSIS: GI bleed Epigastric abdominal pain History gastric bypass Dysphagia Morbid obesity due to excess calories POSTOPERATIVE DIAGNOSIS: Gastrojejunal stricture without chronic ulcer without perforation OPERATION: Esophagogastrojejunoscopy with balloon dilatation from 15 to 20 mm. SURGEON: Dotty Grant MD ANESTHESIA: MAC. INDICATIONS: The patient is a 43-year-old female who presented to the emergency room with epigastric pain and GI bleed. She also had atypical chest pain and dysphagia. Benefits and risks of the procedure were described. Informed consent was obtained. DESCRIPTION: The patient was brought into the endoscopy suite and laid in the left lateral decubitus position. After a timeout was confirmed, the procedure was initiated. An Olympus gastroscope was passed along the posterior oropharynx down to the distal esophagus where the squamocolumnar junction was unremarkable. The gastric pouch was entered. A gastrojejunal stricture of 15 mm was found as the adult gastroscope was 9.5 mm in size. A iStorez balloon dilator was placed through the scope. Final insufflation up to 20 mm was performed with a total of 2 minutes. The scope was advanced up to 60 cm from the incisors into the Damaris limb. The mucosa of the gastrojejunal anastomosis was intact. 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 No full-thickness injury was encountered. The GI tract was desufflated. The patient tolerated the procedure well. FINDINGS: Squamocolumnar junction unremarkable at 37 cm. Gastric pouch 5 cm Stricture of approximately 15 mm encountered. No chronic gastrojejunal ulceration encountered. Successful balloon dilatation to 20 mm. RECOMMENDATIONS: May benefit from upper GI Upper endoscopy as needed. Plan - Discharge Summary Discharge Rx Participant: No New Discharge Prescriptions: Continue Omeprazole 40 mg PO HS Sucralfate [Carafate] 1 gm PO QID Famotidine 20 mg PO DAILY Loratadine [Claritin] 10 mg PO HS Budesonide [Pulmicort Flexhaler] 1 puff INHALATION RT-BID PRN PRN Reason: Shortness Of Breath Escitalopram [Lexapro] 10 mg PO HS Levothyroxine Sodium [Synthroid] 175 mcg PO DAILY Ergocalciferol [Vitamin D2 (1250 Mcg = 27955 Iu)] 1,250 mcg PO MO Atomoxetine HCl [Strattera] 25 mg PO HS Discharge Medication List Omeprazole 40 mg PO HS 08/23/20 [History] Budesonide [Pulmicort Flexhaler] 1 puff INHALATION RT-BID PRN 11/07/21 [History] Escitalopram [Lexapro] 10 mg PO HS 11/07/21 [History] Loratadine [Claritin] 10 mg PO HS 11/07/21 [History] Atomoxetine HCl [Strattera] 25 mg PO HS 02/05/24 [History] Ergocalciferol [Vitamin D2 (1250 Mcg = 90846 Iu)] 1,250 mcg PO MO 02/05/24 [History] Levothyroxine Sodium [Synthroid] 175 mcg PO DAILY 02/05/24 [History] Sucralfate [Carafate] 1 gm PO QID 02/05/24 [History] Famotidine 20 mg PO DAILY 02/06/24 [History] [facility] [place] [facility] - [facility] Patient Instructions/Handouts: Esophageal Dilation (DC) Discharge Disposition: HOME SELF-CARE
== END 2024-02-10 10:00 | disposition home or self-care (01) ==
LOC: ORWHC2ENDO 08:18
PROVIDERS: ATTEND Surgery Plastic and Reconstructive Surgery
DX: K21.00 Gastro-esophageal reflux disease with esophagitis, without bleeding (principal); K92.2 Gastrointestinal hemorrhage, unspecified; E66.01 Morbid (severe) obesity due to excess calories; J45.909 Unspecified asthma, uncomplicated; K21.9 Gastro-esophageal reflux disease without esophagitis; E07.9 Disorder of thyroid, unspecified; E03.9 Hypothyroidism, unspecified; F41.9 Anxiety disorder, unspecified; F98.8 Other specified behavioral and emotional disorders with onset usually occurring in childhood and adolescence; Z88.1 Allergy status to other antibiotic agents; Z98.51 Tubal ligation status; Z98.890 Other specified postprocedural states; Z87.442 Personal history of urinary calculi; Z90.49 Acquired absence of other specified parts of digestive tract; Z98.891 History of uterine scar from previous surgery; Z98.84 Bariatric surgery status; Z79.51 Long term (current) use of inhaled steroids; Z83.49 Family history of other endocrine, nutritional and metabolic diseases
CPT/HCPCS: 81025; 43249; J3010; J2704; J2001; C1726

== ENCOUNTER → 2024-05-01 | Outpatient (CLI) | payer BC ==
--- NOTE | 2024-05-11 13:01 | CT ---
EXAMINATION TYPE: CT brain wo/w con CT DLP: 2369 mGycm, Automated exposure control for dose reduction was used. DATE OF EXAM: 05/01/2024 2:15 PM COMPARISON: None.. CLINICAL INDICATION:Female, 43 years old with history of R42 Vertigo DIZZINESS AND GIDDINESS; PHH, le ft ear hearing loss, vertigo, family hx of Meniere's disease TECHNIQUE: Axial CT images of the brain were obtained with coronal and sagittal reformats created and reviewed. Contrast used:100 mL of Isovue 300 with IV Contrast, Oral contrast used: none. FINDINGS: Extra-axial spaces: No abnormal extra-axial fluid collections. Ventricular system: Within normal limits Cerebral parenchyma: No acute intraparenchymal hemorrhage or mass effect. The grove-white junction is well differentiated. No abnormal enhancement is seen after the administration of intravenous contras t. Cerebellum: Unremarkable. Mass effect: No evidence of midline shift. Intracranial vasculature: unremarkable Soft tissues: Normal. Calvarium/osseous structures: No depressed skull fracture. Paranasal sinuses and mastoid air cells: Clear. Visualized orbits: Orbital contents are intact. No abnormal enhancement. IMPRESSION: No acute intracranial process. No abnormal enhancement.
== END | disposition home or self-care (01) ==
LOC: RADCTMAIN 13:44
PROVIDERS: ATTEND Internal Medicine
DX: R42 Dizziness and giddiness (principal)
CPT/HCPCS: 70470; Q9967

== ENCOUNTER → 2024-10-30 | Outpatient (CLI) | payer BC ==
--- NOTE | 2024-10-30 16:31 | US ---
EXAMINATION TYPE: US thyroid st tissue head/neck DATE OF EXAM: 10/30/2024 COMPARISON: 07/01/2023 CLINICAL INDICATION: Female, 44 years old with history of E04.1 THY NODS; Hypothyroidism TECHNIQUE: Grayscale and color Doppler imaging of the thyroid gland. FINDINGS: GLAND SIZE: Right Lobe: 5.3 x 2.3 x 2.1 cm Overall Parenchyma: heterogeneous Left Lobe: 4.5 x 1.4 x 1.6 cm Overall Parenchyma: heterogeneous Isthmus Thickness: 0.3 cm NODULES RIGHT: # of nodules measured on right: 0 cm LEFT: # of nodules measured on left: 0 ISTHMUS: # of nodules measured in the isthmus: 0 Bilateral neck scanned, no evidence of lymphadenopathy. IMPRESSION: Heterogenous thyroid gland correlate with serum markers for thyroiditis. [facility], , 10/30/2024 4:29 PM
== END | disposition home or self-care (01) ==
LOC: RADUSWWP 15:37
PROVIDERS: ATTEND Internal Medicine
DX: E04.1 Nontoxic single thyroid nodule (principal); E03.9 Hypothyroidism, unspecified
CPT/HCPCS: 76536

== ENCOUNTER 2024-11-11 14:48 | Emergency (ER) | payer BC, OTHER ==
[2024-11-11 14:55] VITALS: RESP 16
--- NOTE | 2024-11-11 15:20 | ED ---
General Adult HPI - General Chief complaint: Fall Stated complaint: IHS-Fall Time Seen by Provider: 11/11/24 14:57 Source: patient, RN notes reviewed Mode of arrival: ambulatory Limitations: no limitations - History of Present Illness Initial comments: This is a 44-year-old female presenting for reevaluation after a fall. 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 Patient denies hitting her head at the time of the fall and denies loss of consciousness. She states that she is able to get up and ambulate after the fall however was instructed by employer to report to urgent care for further evaluation. Patient states that she was prescribed methocarbamol, muscle relaxer, for pain. States that over the past day after taking her muscle laxer she has been experiencing brain fog, nausea, and an episode of emesis this morning. She denies headache, blurry or double vision. Endorses mild neck pain to the left neck - Related Data Home Medications Medication Instructions Recorded Confirmed Omeprazole 40 mg PO HS 08/23/20 02/10/24 Budesonide [Pulmicort Flexhaler] 1 puff INHALATION RT-BID PRN 11/07/21 02/10/24 Escitalopram [Lexapro] 10 mg PO HS 11/07/21 02/10/24 Loratadine [Claritin] 10 mg PO HS 11/07/21 02/10/24 Atomoxetine HCl [Strattera] 25 mg PO HS 02/05/24 02/06/24 Ergocalciferol [Vitamin D2 (1250 1,250 mcg PO MO 02/05/24 02/10/24 Mcg = 10639 Iu)] Levothyroxine Sodium [Synthroid] 175 mcg PO DAILY 02/05/24 02/10/24 Sucralfate [Carafate] 1 gm PO QID 02/05/24 02/10/24 Famotidine 20 mg PO DAILY 02/06/24 02/10/24 Previous Rx's Medication Instructions Recorded Lidocaine 5% Patch [Lidoderm] 1 patch TOPICAL DAILY PRN #12 patch 11/11/24 Allergies Allergy/AdvReac Type Severity Reaction Status Date / Time adhesive tape Allergy Rash/Hives Verified 11/11/24 14:55 antibiotics AdvReac thrush Uncoded 02/10/24 08:42 Review of Systems ROS Statement: Those systems with pertinent positive or pertinent negative responses have been documented in the HPI. ROS Other: All systems not noted in ROS Statement are negative. Past Medical History Past Medical History: Asthma, GERD/Reflux, Thyroid Disorder Additional Past Medical History / Comment(s): hx anemia, hx of kidney stones. stomach ulcer -increased abdominal pain pt thought she was having a heart attack, covid positive 10/25/2021, ruptured appendix 2020 w/surg. 2.5x2.5 cm nodule on left thryoid being watched by specialist. pt is carrier for Factor V leiden, MTHFR and one other factor issue. History of Any Multi-Drug Resistant Organisms: None Reported Past Surgical History: Appendectomy, Bariatric Surgery, Section, Cholecystectomy, Orthopedic Surgery, Tubal Ligation Additional Past Surgical History / Comment(s): lap band 2009 lap band removed and gastric bypass 2013, c section x 3 /2018 reversal of tubal ligation 2016, lap appendectomy after rupture 11-08-21, left knee surgery. egds Past Anesthesia/Blood Transfusion Reactions: No Reported Reaction Past Psychological History: ADD/ADHD, Anxiety Smoking Status: Never smoker - Past Family History Mother Family Medical History: Thyroid Disorder Father Additional Family Medical History / Comment(s): FTD,menieres disease. 08/29/2021 from [facility]. General Exam Limitations: no limitations General appearance: alert, in no apparent distress Eye exam: Present: normal appearance, PERRL, EOMI. Absent: scleral icterus, conjunctival injection, periorbital swelling ENT exam: Present: normal exam, mucous membranes moist Neck exam: Present: normal inspection, tenderness (Left posterior with ROM and palpation). Absent: meningismus, lymphadenopathy Respiratory exam: Present: normal lung sounds bilaterally. Absent: respiratory distress, wheezes, rales, rhonchi, stridor Cardiovascular Exam: Present: regular rate, normal rhythm, normal heart sounds. Absent: systolic murmur, diastolic murmur, rubs, gallop, clicks GI/Abdominal exam: Present: soft, normal bowel sounds. Absent: distended, tenderness, guarding, rebound, rigid Extremities exam: Present: normal inspection, full ROM, normal capillary refill. Absent: tenderness, pedal edema, joint swelling, calf tenderness Neurological exam: Present: alert, oriented X3, CN II-XII intact Course Vital Signs 11/11/24 11/11/24 14:52 16:22 Temperature 98.1 F 98.5 F Pulse Rate 95 81 Respiratory 16 16 Rate Blood Pressure 148/111 144/92 O2 Sat by Pulse 100 99 Oximetry Medical Decision Making - Medical Decision Making Was pt. sent in by a medical professional or institution (, PA, SCHEDULING COORDINATOR, urgent care, hospital, or custodial...) When possible be specific @ -No Did you speak to anyone other than the patient for history (EMS, parent, family, police, friend...)? What history was obtained from this source @ -No Did you review nursing and triage notes (agree or disagree)? Why? @ -I reviewed and agree with nursing and triage notes Were old charts reviewed (outside hosp., previous admission, EMS record, old EKG, old radiological studies, urgent care reports/EKG's, custodial records)? Report findings @ -No old charts were reviewed Differential Diagnosis (chest pain, altered mental status, abdominal pain women, abdominal pain men, vaginal bleeding, weakness, fever, dyspnea, syncope, headache, dizziness, GI bleed, back pain, seizure, CVA, palpatations, mental health, musculoskeletal)? @ -Differential Headache: Migraine, tension, cluster, carbon monoxide, central venous thrombosis, pension karma temporal arteritis, acute closure glaucoma, intercranial hemorrhage, mastoiditis, sinusitis, head injury, this is not meant to be an all-inclusive list. EKG interpreted by me (3pts min.). @ -None X-rays interpreted by me (1pt min.). @ -None done CT interpreted by me (1pt min.). @ -None done U/S interpreted by me (1pt. min.). @ -None done What testing was considered but not performed or refused? (CT, X-rays, U/S, labs)? Why? @ -CT imaging of brain and C-spine was considered but this time. Patient denies hitting her head and her neck at the time of the injury and denies loss conscious. Ankle exam unremarkable for signs of head trauma. There is no clinical turn for cervical and/or intracranial pathology at this time. Patient continued with deferring CT imaging. What meds were considered but not given or refused? Why? @ -None Did you discuss the management of the patient with other professionals (professionals i.e. Dr., PA, SCHEDULING COORDINATOR, lab, RT, psych nurse, social services technician, advanced manufacturing technician, teacher, tactical/mobile watch officer, case preparer and liner)? Give summary @ -No Was smoking cessation discussed for >3mins.? @ -No Was critical care preformed (if so, how long)? @ -No Were there social determinants of health that impacted care today? How? (Homelessness, low income, unemployed, alcoholism, drug addiction, transportation, low edu. Level, literacy, decrease access to med. care, senior care, rehab)? @ -No Was there de-escalation of care discussed even if they declined (Discuss DNR or withdrawal of care, Hospice)? DNR status @ -No What co-morbidities impacted this encounter? (DM, HTN, Smoking, COPD, CAD, Cancer, CVA, ARF, Chemo, Hep., AIDS, mental health diagnosis, sleep apnea, morbid obesity)? @ -None Was patient admitted / discharged? Hospital course, mention meds given and route, prescriptions, significant lab abnormalities, going to OR and other pertinent info. @ -Discharge. 44-year-old female presenting with nausea, vomiting, brain fog. Neurological examination no acute deficits. Believe that patient's secondary to muscle relaxer she has been taking. Recommend the patient discontinue use of months medication and continue to take Tylenol as needed for pain. Additionally, she is provided with outpatient prescription for lidocaine patches to use as needed. Discussed with Dr. Arce Undiagnosed new problem with uncertain prognosis? @ -No Drug Therapy requiring intensive monitoring for toxicity (Heparin, Nitro, Insulin, Cardizem)? @ -No Were any procedures done? @ -No Diagnosis/symptom? @ -neck pain, adverse reaction from medication Acute, or Chronic, or Acute on Chronic? @ -acute Uncomplicated (without systemic symptoms) or Complicated (systemic symptoms)? @ -uncomplicated Side effects of treatment? @ -No Exacerbation, Progression, or Severe Exacerbation? @ -No Poses a threat to life or bodily function? How? (Chest pain, [place], [place], pneumonia, PE, COPD, DKA, ARF, appy, cholecystitis, CVA, Diverticulitis, Homicidal, Suicidal, threat to staff... and all critical care pts) @ -No Disposition Clinical Impression: Side effect of medication Disposition: HOME SELF-CARE Condition: Good Additional Instructions: Please return to the Emergency Department if symptoms worsen or any other concerns. Prescriptions: Lidocaine 5% Patch [Lidoderm] 1 patch TOPICAL DAILY PRN #12 patch PRN Reason: Pain Is patient prescribed a controlled substance at d/c from ED?: No Referrals: Kalia Sears DO [Primary Care Provider] - 1-2 days Time of Disposition: 16:07
[2024-11-11] MEDS: ORPHENADRINE 30 MG/ML 2 ML VIAL IM STA (15:33)
[2024-11-11 16:23] VITALS: BP 144/92; PULSE 81; TEMP 98.5
== END 2024-11-11 16:23 | disposition home or self-care (01) ==
LOC: EC 14:48
DX: M54.2 Cervicalgia (principal); T50.905A Adverse effect of unspecified drugs, medicaments and biological substances, initial encounter; Z88.1 Allergy status to other antibiotic agents; Z91.09 Other allergy status, other than to drugs and biological substances; W00.0XXA Fall on same level due to ice and snow, initial encounter
CPT/HCPCS: 99283; 96372; J2360; 99282

== ENCOUNTER → 2025-06-07 | Outpatient (CLI) | payer BC | END | disposition home or self-care (01) | LOC: LABWHC1 12:54 | PROVIDERS: ATTEND Family Medicine | DX: H04.123 Dry eye syndrome of bilateral lacrimal glands (principal); R68.2 Dry mouth, unspecified; Q80.9 Congenital ichthyosis, unspecified; L85.3 Xerosis cutis | CPT/HCPCS: 36415; 86038; 86235; 86431 ==

== ENCOUNTER → 2025-06-08 | Outpatient (CLI) | payer BC ==
--- NOTE | 2025-06-08 14:28 | MM ---
Reason for Exam: Screening (asymptomatic). Last mammogram was performed 2 year(s) and 0 month(s) ago. Patient History: Menarche at age 13. First Full-Term at age 29. Premenopausal. Risk Values: Preethi 5 year model risk: 0.9%. NCI Lifetime model risk: 11.8%. Prior Study Comparison: 06/20/2023 Bilateral MG 3D screening mammo w/cad, [facility]. 06/25/2023 Right MG 3D work up w/cad RT, [facility]. Tissue Density: The breasts are heterogeneously dense, which may obscure small masses. Findings: Analyzed By CAD. There is no suspicious group of microcalcifications or new suspicious mass in either breast. Overall Assessment: Negative, BI-RAD 1 Management: Screening Mammogram of both breasts in 1 year. . Patient should continue monthly self-breast exams. A clinical breast exam by your physician is recommended on an annual basis. This exam should not preclude additional follow-up of suspicious palpable abnormalities. Note on Preethi scores and lifetime risk: 1. A Preethi score greater than 3% is considered moderate risk. If this is the case, consider specialist referral to assess eligibility for a risk reducing agent. 2. If overall lifetime risk for the development of breast cancer is 20% or higher, the patient may qualify for future screening with alternating mammogram and breast MRI. [facility], , 06/08/2025 1:30 PM. Electronically signed and approved by: Dmitriy Quesada M.D. [facility]
== END | disposition home or self-care (01) ==
LOC: RADMAMWWP 12:55
PROVIDERS: ATTEND Internal Medicine
DX: Z12.31 Encounter for screening mammogram for malignant neoplasm of breast (principal); R92.333 Mammographic heterogeneous density, bilateral breasts
CPT/HCPCS: 77063; 77067